=== PATIENT | female | born 1975 | race Caucasian/White ===

== ENCOUNTER 2017-06-21 11:36 | Emergency (ER) | payer OTHER ==
[2017-06-21 14:07] LABS: Potassium 4.4 mEq/L (3.6-5.0)
[2017-06-21] MEDS ORDERED: MORPHINE 4 MG/ML SYR ONE (14:07)
[2017-06-21] MEDS ORDERED: ONDANSETRON 4 MG/2 ML VIAL ONE (14:07)
[2017-06-21] MEDS ORDERED: NA CHLORIDE 0.9% 1,000 ML ONE (14:07)
[2017-06-21 14:10] LABS: Albumin 3.8 g/dL (3.2-5.5); Bilirubin Total 0.4 mg/dL (0.3-1.2); Protein, Total 7.3 g/dL (6.0-8.3)
[2017-06-21 14:15] LABS: Absolute Lymphocytes (CBC) 1.5 K/uL (0.7-4.9); Absolute Monocytes 0.3 K/uL (0.1-1.3); Absolute Neutrophil 5.2 K/uL (1.8-8.0); Basophils % 0.6 % (0-1.3); Eosinophils % 3.2 % (0-4.4); Hematocrit 35.4 % (36.0-45.0); Lymphocytes % 20.7 % (15.3-44.8); MCH 29.3 pg (27.0-35.0); MCV 89.4 fL (80-100); MPV 7.7 fL (7.6-11.3); Monocytes % 4.5 % (3.3-12.3); RBC Red Blood Cell Count 3.96 M/uL (3.86-4.86)
[2017-06-21] MEDS ORDERED: PROMETHAZINE 25 MG/ML VIAL ONE (15:02)
--- NOTE | 2017-06-21 17:49 | ER ---
Nurse's Notes [facility] Name: Annmarie Garcia Age: 42 yrs Sex: Female : 1975 Arrival Date: 06/21/2017 Time: 11:39 Bed 17 Private MD: Diagnosis: Nausea Presentation: 06/21 11:40 Presenting complaint: Patient states: i had surgery on my R foot last June in [facility], the pain is getting worse even with pain meds; sharp shooting pain and numbness; pain is 10/10; denies fever and chills; reports nausea;. Transition of care: patient was not received from another setting of care. Onset of symptoms was June 21, 2017. Care prior to arrival: None. 11:40 Method Of Arrival: Ambulatory 11:40 Acuity: SELVIN 4 Triage Assessment: 11:43 General: Appears in no apparent distress. uncomfortable, Behavior is cooperative, hj appropriate for age, anxious, crying. Pain: Complains of pain in right leg. GI: Reports nausea. 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 Historical: - Allergies: 11:43 OxyContin; - Home Meds: 11:43 Fioricet 50-300-40 mg Oral cap [Active]; Flexeril 10 mg Oral tab 1 tab 2 times per day hj [Active]; gabapentin 800 mg Oral tab 1 tab 3 times per day [Active]; hydrocodone-acetaminophen 5-325 mg Oral tab 1 tab [Active]; Keppra 500 mg Oral tab 1 tab daily [Active]; Tegretol 200 mg Oral tab 1 tab bedtime [Active]; - PMHx: 11:43 Anxiety; Asthma; decreased kidney fx; Hypertension; Hypothyroidism; Migraines; R arm hj compartment syndrome; R leg compartment syndrome; Seizures; suicidal ideation; - PSHx: 11:43 right lower extremity surgery; hj - Immunization history:: Adult Immunizations up to date. - Social history:: Smoking status: Patient/guardian denies using tobacco. Screenin:40 Abuse screen: Denies threats or abuse. Nutritional screening: No deficits noted. em Tuberculosis screening: No symptoms or risk factors identified. Fall Risk None identified. Assessment: 11:44 GI: Abdomen is non-distended. hj 12:40 General: Appears in no apparent distress. uncomfortable. Pain: Pain radiates to right em leg Pain currently is 10 out of 10 on a pain scale. Quality of pain is described as pressure. Neuro: Level of Consciousness is awake, alert, obeys commands, Oriented to person, place, time, situation, Speech is normal, Facial symmetry appears normal. Cardiovascular: Capillary refill < 3 seconds Patient's skin is warm and dry. Respiratory: Airway is patent Respiratory effort is even, unlabored, Respiratory pattern is regular, symmetrical, Breath sounds are clear bilaterally. GI: Abdomen is round non-distended. : No signs and/or symptoms were reported regarding the genitourinary system. EENT: No signs and/or symptoms were reported regarding the EENT system. Derm: Skin is intact, Skin is pink, warm \T\ dry. Musculoskeletal: Range of motion: intact in all extremities, splint noted to the right leg, reports she had surgery on June 10 for compartment syndrome. 12:45 General: The previous assessment is accurate, call light remains within reach.. ss 13:33 Reassessment: Patient appears in no apparent distress at this time. Patient and/or em family updated on plan of care and expected duration. Pain level reassessed. Patient is alert, oriented x 3, equal unlabored respirations, skin warm/dry/pink. 14:35 Reassessment: Patient appears in no apparent distress at this time. Patient and/or em family updated on plan of care and expected duration. Pain level reassessed. Patient is alert, oriented x 3, equal unlabored respirations, skin warm/dry/pink. c/o pain and nausea, ERP notified, new orders received. 15:30 Reassessment: Patient appears in no apparent distress at this time. Patient and/or em family updated on plan of care and expected duration. Pain level reassessed. Patient is alert, oriented x 3, equal unlabored respirations, skin warm/dry/pink. 16:45 Reassessment: Patient appears in no apparent distress at this time. Patient and/or em family updated on plan of care and expected duration. Pain level reassessed. Patient is alert, oriented x 3, equal unlabored respirations, skin warm/dry/pink. 17:48 Reassessment: Patient appears in no apparent distress at this time. Patient and/or em family updated on plan of care and expected duration. Pain level reassessed. Patient is alert, oriented x 3, equal unlabored respirations, skin warm/dry/pink. Vital Signs: 11:44 BP 124 / 82; Pulse 115; Resp 18; Temp 99.3(TE); Pulse Ox 99% on R/A; Weight 72.57 kg; hj Height 5 ft. 4 in. (162.56 cm); Pain 10/10; 12:40 BP 111 / 83; Pulse 109; Resp 20; Pulse Ox 99% on R/A; em 13:55 BP 109 / 69; Pulse 103; Resp 16; Pulse Ox 98% on R/A; Pain 10/10; em 16:58 BP 116 / 81; Pulse 86; Resp 18; Pulse Ox 99% on R/A; Pain 9/10; em 18:20 BP 115 / 59; Pulse 93; Resp 14; Temp 98.4(O); Pulse Ox 98% on R/A; Pain 7/10; em 11:44 Body Mass Index 27.46 (72.57 kg, 162.56 cm) hj ED Course: 11:39 Patient arrived in ED. rg4 11:42 Triage completed. hj 11:44 Arm band placed on right wrist. hj 12:14 Javed Perea LVN is Primary Nurse. em 12:27 Abby Simmons MD is Attending Physician. ma2 12:40 Patient has correct armband on for positive identification. Bed in low position. Call em light in reach. Side rails up X2. Adult w/ patient. 13:45 No provider procedures requiring assistance completed. Initial lab(s) drawn, by me, em sent to lab. Inserted saline lock: 24 gauge in right hand, using aseptic technique. Blood collected. 18:45 IV discontinued, intact, bleeding controlled, No redness/swelling at site. Pressure em dressing applied. Administered Medications: 13:55 Drug: Zofran 4 mg Route: IVP; Site: right hand; ss 14:32 Follow up: Response: No adverse reaction; Nausea unchanged em 13:58 Drug: NS 0.9% 1000 ml Route: IV; Rate: 1 bolus; Site: right hand; em 18:05 Follow up: IV Status: Completed infusion; IV Intake: 1000ml em 14:00 Drug: morphine 2 mg Route: IVP; Site: right hand; ss 14:32 Follow up: Response: No adverse reaction; Pain is unchanged, physician notified em 14:50 Drug: Phenergan 25 mg Route: IVP; Site: right hand; jl7 18:09 Follow up: Response: No adverse reaction em 18:05 Drug: morphine 2 mg Route: IVP; Site: right hand; em 18:09 Follow up: Response: No adverse reaction em Intake: 18:05 IV: 1000ml; Total: 1000ml. em Outcome: 17:49 Discharge ordered by MD. fuentes 18:45 Discharged to home ambulatory. em 18:45 Condition: good 18:45 Discharge instructions given to patient, family, Instructed on discharge instructions, follow up and referral plans. Demonstrated understanding of instructions, follow-up care, Prescriptions given X 1. 18:45 Patient left the ED. em Signatures: Javed Perea, PHLEBOTOMY LAB ASSISTANT PHLEBOTOMY LAB ASSISTANT em Swetha Rodriguez, RN RN Zeke Whitlock RN RN Marlen Napoles rg4 Charu Eller RN RN jl7 Abby Simmons MD MD ma2 Corrections: (The following items were deleted from the chart) 11:46 11:44 Pulse 115bpm; Resp 18bpm; Pulse Ox 99% RA; Temp 99.3F Temporal; 72.57 kg; Height hj 5 ft. 4 in.; BMI: 27.4; Pain 10/10; hj 14:00 13:59 Zofran 4 mg IVP in left hand ss 18:06 15:35 Response: No adverse reaction em em 18:07 18:06 Response: No adverse reaction em em 18:09 17:10 Response: No adverse reaction em em
--- NOTE | 2017-06-21 17:50 | EDPHYS ---
Physician Documentation [facility] Name: Annmarie Garcia Age: 42 yrs Sex: Female : 1975 Arrival Date: 06/21/2017 Time: 11:39 Bed 17 Private MD: ED Physician Abby Simmons HPI: 06/21 17:46 This 42 yrs old Female presents to ER via Ambulatory with complaints of ma2 Nausea, Foot Pain. 17:46 The patient presents to the emergency department with nausea, vomiting. Onset: The ma2 symptoms/episode began/occurred gradually, 2 week(s) ago. Possible causes: pain in right foot. Associated signs and symptoms: Pertinent negatives: abdominal pain, belching, diarrhea, fever, flatulence, nausea, vaginal discharge. The patient has experienced similar episodes in the past. had right ankle surgery 2 weeks ago, has pain on off since then here with nausea and headache, she has migraine, on Phenergan for nausea that is not helping . 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 Historical: - Allergies: 11:43 OxyContin; hj - Home Meds: 11:43 Fioricet 50-300-40 mg Oral cap [Active]; Flexeril 10 mg Oral tab 1 tab 2 times per day hj [Active]; gabapentin 800 mg Oral tab 1 tab 3 times per day [Active]; hydrocodone-acetaminophen 5-325 mg Oral tab 1 tab [Active]; Keppra 500 mg Oral tab 1 tab daily [Active]; Tegretol 200 mg Oral tab 1 tab bedtime [Active]; - PMHx: 11:43 Anxiety; Asthma; decreased kidney fx; Hypertension; Hypothyroidism; Migraines; R arm hj compartment syndrome; R leg compartment syndrome; Seizures; suicidal ideation; - PSHx: 11:43 right lower extremity surgery; hj - Immunization history:: Adult Immunizations up to date. - Social history:: Smoking status: Patient/guardian denies using tobacco. ROS: 17:46 Constitutional: Negative for fever, chills, and weight loss, Eyes: Negative for injury, ma2 pain, redness, and discharge, ENT: Negative for injury, pain, and discharge, Neck: Negative for injury, pain, and swelling, Cardiovascular: Negative for chest pain, palpitations, and edema, Respiratory: Negative for shortness of breath, cough, wheezing, and pleuritic chest pain, Back: Negative for injury and pain, : Negative for injury, bleeding, discharge, and swelling, Skin: Negative for injury, rash, and discoloration, Neuro: Negative for headache, weakness, numbness, tingling, and seizure, Psych: Negative for depression, anxiety, suicide ideation, homicidal ideation, and hallucinations, Allergy/Immunology: Negative for hives, rash, and allergies, Hematologic/Lymphatic: Negative for swollen nodes, abnormal bleeding, and unusual bruising. Exam: 17:46 Constitutional: This is a well developed, well nourished patient who is awake, alert, ma2 and in no acute distress. Head/Face: Normocephalic, atraumatic. Eyes: Pupils equal round and reactive to light, extra-ocular motions intact. Lids and lashes normal. Conjunctiva and sclera are non-icteric and not injected. Cornea within normal limits. Periorbital areas with no swelling, redness, or edema. ENT: Nares patent. No nasal discharge, no septal abnormalities noted. Tympanic membranes are normal and external auditory canals are clear. Oropharynx with no redness, swelling, or masses, exudates, or evidence of obstruction, uvula midline. Mucous membranes moist. Neck: Trachea midline, no thyromegaly or masses palpated, and no cervical lymphadenopathy. Supple, full range of motion without nuchal rigidity, or vertebral point tenderness. No Meningismus. Chest/axilla: Normal chest wall appearance and motion. Nontender with no deformity. No lesions are appreciated. Cardiovascular: Regular rate and rhythm with a normal S1 and S2. No gallops, murmurs, or rubs. Normal PMI, no JVD. No pulse deficits. Respiratory: Lungs have equal breath sounds bilaterally, clear to auscultation and percussion. No rales, rhonchi or wheezes noted. No increased work of breathing, no retractions or nasal flaring. Abdomen/GI: Soft, non-tender, with normal bowel sounds. No distension or tympany. No guarding or rebound. No evidence of tenderness throughout. 18:25 Musculoskeletal/extremity: right leg, ankle and foot with no acute changes, no erythema ma2 swelling or tenderness, all surgical scars are almost healed and dry with no induration, cap refill < 2 sec, pulses palpable at right pt dp and sensation intact . Vital Signs: 11:44 BP 124 / 82; Pulse 115; Resp 18; Temp 99.3(TE); Pulse Ox 99% on R/A; Weight 72.57 kg; hj Height 5 ft. 4 in. (162.56 cm); Pain 10/10; 12:40 BP 111 / 83; Pulse 109; Resp 20; Pulse Ox 99% on R/A; em 13:55 BP 109 / 69; Pulse 103; Resp 16; Pulse Ox 98% on R/A; Pain 10/10; em 16:58 BP 116 / 81; Pulse 86; Resp 18; Pulse Ox 99% on R/A; Pain 9/10; em 18:20 BP 115 / 59; Pulse 93; Resp 14; Temp 98.4(O); Pulse Ox 98% on R/A; Pain 7/10; em 11:44 Body Mass Index 27.46 (72.57 kg, 162.56 cm) hj MDM: 12:27 Patient medically screened. ma2 17:46 Differential diagnosis: Nonspecific abd pain, viral gastroenteritis, gastroenteritis, ma2 migraine headache, unlikely right foot condition as pain is not changed from baseline. Data reviewed: vital signs, nurses notes, EMS record. 17:50 Medication response: Response to treatment: the patient's symptoms have resolved after ma2 treatment, patient is well hydrated. tolerate po . 06/21 12:58 Order name: CBC with Diff ma2 06/21 12:58 Order name: CMP ma2 06/21 14:07 Order name: Comprehensive Metabolic Panel; Complete Time: 16:41 EDMS 06/21 14:37 Order name: CBC with Automated Diff; Complete Time: 16:41 EDMS Administered Medications: 13:55 Drug: Zofran 4 mg Route: IVP; Site: right hand; ss 14:32 Follow up: Response: No adverse reaction; Nausea unchanged em 13:58 Drug: NS 0.9% 1000 ml Route: IV; Rate: 1 bolus; Site: right hand; em 18:05 Follow up: IV Status: Completed infusion; IV Intake: 1000ml em 14:00 Drug: morphine 2 mg Route: IVP; Site: right hand; ss 14:32 Follow up: Response: No adverse reaction; Pain is unchanged, physician notified em 14:50 Drug: Phenergan 25 mg Route: IVP; Site: right hand; jl7 18:09 Follow up: Response: No adverse reaction em 18:05 Drug: morphine 2 mg Route: IVP; Site: right hand; em 18:09 Follow up: Response: No adverse reaction em Disposition: 06/21/17 17:49 Discharged to Home. Impression: Nausea. - Condition is Stable. - Discharge Instructions: Nausea and Vomiting. - Prescriptions for Zofran 4 mg Oral Tablet - take 1 tablet by ORAL route every 12 hours As needed; 20 tablet. - Medication Reconciliation Form, Thank You Letter, Antibiotic Education, Prescription Opioid Use form. - Follow up: Private Physician; When: Tomorrow; Reason: Continuance of care. - Problem is new. - Symptoms are unchanged. Signatures: Dispatcher [employer] Javed Martin, ASPHALT DAUBER ASPHALT DAUBER Swetha Walters, RN RN Zeke Whitlock RN RN hj Leal, Jahala, RN RN jl7 Abby Simmons MD MD ma2
[2017-06-21 18:55] VITALS: BP 115/59; TEMP 98.4; O2SAT 98
== END 2017-06-21 18:45 | disposition home or self-care (01) ==
LOC: ER 11:36
DX: R11.0 Nausea (principal); M79.671 Pain in right foot; I10 Essential (primary) hypertension; E03.9 Hypothyroidism, unspecified; F41.9 Anxiety disorder, unspecified; G40.909 Epilepsy, unspecified, not intractable, without status epilepticus; Z88.5 Allergy status to narcotic agent
CPT/HCPCS: 36415; 80053; 85025; 96361; 96374; 96375; 99284; J2405; J2550; J7030

== ENCOUNTER 2017-06-24 14:09 | Emergency (ER) | payer OTHER ==
--- NOTE | 2017-06-24 15:11 | RAD REPORT ---
EXAM DESCRIPTION: Deedee Escobedo (2 Views)06/24/2017 2:58 pm CLINICAL HISTORY: Chest pain COMPARISON: December 2016 FINDINGS: The lungs appear clear of acute infiltrate. The heart is normal size IMPRESSION: No acute abnormalities displayed
[2017-06-24] MEDS ORDERED: NA CHLORIDE 0.9% 0 ML ONE (15:29)
[2017-06-24] MEDS ORDERED: LEVALBUTEROL 1.25 MG/3 ML NEB ONE (15:29)
--- NOTE | 2017-06-24 17:51 | EDPHYS ---
Physician Documentation [facility] Name: Annmarie Garcia Age: 42 yrs Sex: Female : 1975 Arrival Date: 06/24/2017 Time: 14:12 Bed 5 Private MD: Yamileth Roth ED Physician Kaushik Crain HPI: 06/24 16:39 This 42 yrs old Female presents to ER via Ambulatory with complaints of Foot rn Pain, chest pain, Breathing Difficulty. 16:40 The patient or guardian reports chest pain that is located primarily in the epigastric rn area. Onset: at an unknown time. The pain. The chest pain is described as burning. Modifying factors: The symptoms are alleviated by nothing. the symptoms are aggravated by nothing. Severity of pain: At its worst the pain was mild in the emergency department the pain is unchanged. It is unknown whether or not the patient has had similar symptoms in the past. Reports unknown onset exactly, but sometime today began with burning in her stomach that radiates up through chest and into throat, no vomiting/diaphoresis. Also here for foot pain, reports surgery a couple of weeks ago at [facility], has been having pain in foot since surgery, no leg swelling, no change in skin, states took off her splint because rubbing too much.. 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 hb Historical: - Allergies: 14:19 OxyContin; hb - Home Meds: 14:19 Flexeril 10 mg Oral tab 1 tab 2 times per day [Active]; gabapentin 800 mg Oral tab 1 hb tab 3 times per day [Active]; hydrocodone-acetaminophen 5-325 mg Oral tab 1 tab [Active]; Keppra 500 mg Oral tab 1 tab daily [Active]; Tegretol 200 mg Oral tab 1 tab bedtime [Active]; Fioricet 50-300-40 mg Oral cap [Active]; - PMHx: 14:19 Anxiety; Asthma; decreased kidney fx; Hypertension; Hypothyroidism; Migraines; R arm hb compartment syndrome; R leg compartment syndrome; Seizures; suicidal ideation; - PSHx: 14:19 right lower extremity surgery; hb - Immunization history:: Adult Immunizations up to date. - Social history:: Smoking status: Patient/guardian denies using tobacco. - Family history:: not pertinent. - Hospitalizations: : No recent hospitalization is reported. ROS: 16:40 Constitutional: Negative for fever, chills, and weight loss, Eyes: Negative for injury, rn pain, redness, and discharge, Cardiovascular: Negative for palpitations, and edema, Respiratory: Negative for cough, wheezing Abdomen/GI: Negative for nausea, vomiting, diarrhea, and constipation, Back: Negative for injury and pain, MS/Extremity: Negative for injury and deformity, Skin: Negative for injury, rash, and discoloration, Neuro: Negative for headache, weakness, numbness, tingling, and seizure. Exam: 16:40 Constitutional: This is a well developed, well nourished patient who is awake, alert, rn and in no acute distress. Head/Face: Normocephalic, atraumatic. Eyes: Pupils equal round and reactive to light, extra-ocular motions intact. Lids and lashes normal. Conjunctiva and sclera are non-icteric and not injected. Cornea within normal limits. Periorbital areas with no swelling, redness, or edema. Neck: Trachea midline, no thyromegaly or masses palpated, and no cervical lymphadenopathy. Supple, full range of motion without nuchal rigidity, or vertebral point tenderness. No Meningismus. Cardiovascular: Regular rate and rhythm with a normal S1 and S2. No gallops, murmurs, or rubs. Normal PMI, no JVD. No pulse deficits. Respiratory: Lungs have equal breath sounds bilaterally, clear to auscultation and percussion. No rales, rhonchi or wheezes noted. No increased work of breathing, no retractions or nasal flaring. Abdomen/GI: Soft, non-tender, with normal bowel sounds. No distension or tympany. No guarding or rebound. No evidence of tenderness throughout. MS/ Extremity: Pulses equal, no cyanosis. Neurovascular intact. Equal circumference. Neuro: Awake and alert, GCS 15, oriented to person, place, time, and situation. Cranial nerves II-XII grossly intact. Motor strength 5/5 in all extremities. Sensory grossly intact. Vital Signs: 14:17 BP 131 / 79; Pulse 125; Resp 20; Temp 98; Pulse Ox 96% ; Pain 8/10; hb 17:17 BP 119 / 73; Pulse 91; Resp 18; Pulse Ox 99% ; jl7 18:02 BP 108 / 75; Pulse 97; Pulse Ox 100% on R/A; ap3 MDM: 14:22 Patient medically screened. rn 17:46 Differential diagnosis: acute pericarditis, anxiety, chest wall pain, esophagitis, rn gastritis, gastroesophageal reflux disease (GERD), pleurisy, pneumonia, pneumothorax. Data reviewed: vital signs, nurses notes, lab test result(s), EKG, radiologic studies, plain films, and as a result, I will discharge patient. Counseling: I had a detailed discussion with the patient and/or guardian regarding: the historical points, exam findings, and any diagnostic results supporting the discharge/admit diagnosis, lab results, radiology results, the need for outpatient follow up, to return to the emergency department if symptoms worsen or persist or if there are any questions or concerns that arise at home. Special discussion: Based on the patient's history, exam, and Dx evaluation, there is no indication for emergent intervention or inpatient Tx. It is understood by the patient/guardian that if the Sx's persist or worsen they need to return immediately for re-evaluation. I discussed with the patient/guardian in detail that at this point there is no indication for admission to the hospital. It is understood, however, that if the symptoms persist or worsen the patient needs to return immediately for re-evaluation. ED course: Meets PERC criteria, normal troponin, chronic foot pain, will dc home with ortho f/u as planned. . 06/24 14:32 Order name: BMP rn 06/24 14:32 Order name: Troponin (emerg Dept Use Only) rn 06/24 14:32 Order name: XRAY Chest Pa And Lat (2 Views) rn 06/24 15:11 Order name: RAD; Complete Time: 15:21 EDNH 06/24 17:09 Order name: Troponin (Emerg Dept Use Only); Complete Time: 17:12 EDNH 06/24 14:32 Order name: EKG; Complete Time: 14:33 rn 06/24 14:32 Order name: EKG - Nurse/Tech; Complete Time: 15:44 rn Administered Medications: 15:43 Drug: Xopenex 1.25 mg Route: Inhalation; ae1 16:07 Not Given (Physician Discretion): NS 0.9% 1000 ml IV at 1000 ml once ae1 Disposition: 06/24/17 17:50 Discharged to Home. Impression: Chest pain, unspecified, Other chronic pain, Gastro-esophageal reflux disease. - Condition is Stable. - Discharge Instructions: Nonspecific Chest Pain, Chronic Pain, Gastroesophageal Reflux Disease, Adult. - Medication Reconciliation Form, Thank You Letter, Antibiotic Education, Prescription Opioid Use form. - Follow up: Yamileth Roth MD; When: As needed; Reason: Recheck today's complaints, Re-evaluation by your physician. - Problem is an ongoing problem. - Symptoms have improved. Signatures: Dispatcher [employer] EDNH Kaushik Crain MD MD rn Baxter, Heather RN RN Abdiel Shelby RN RN ae1
--- NOTE | 2017-06-24 17:51 | ER ---
Nurse's Notes [facility] Name: Annmarie Garcia Age: 42 yrs Sex: Female : 1975 Arrival Date: 06/24/2017 Time: 14:12 Bed 5 Private MD: Yamileth Roth Diagnosis: Chest pain, unspecified;Other chronic pain;Gastro-esophageal reflux disease Presentation: 06/24 14:14 Presenting complaint: Patient states: Epigastric pain and SOB x 1 hr. Also c/o right hb foot pain, recent foot sx 3/6. Transition of care: patient was not received from another setting of care. Onset of symptoms is unknown. Care prior to arrival: Medication(s) given: [place] at 1000. 14:14 Method Of Arrival: Ambulatory hb 14:14 Acuity: SELVIN 3 hb Triage Assessment: 18:18 Respiratory: Onset: The symptoms/episode began/occurred surgery date was 06/08/2017. ap3 18:18 Respiratory: Reports shortness of breath on exertion the patient has mild shortness of ap3 breath. 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 Historical: - Allergies: 14:19 OxyContin; hb - Home Meds: 14:19 Flexeril 10 mg Oral tab 1 tab 2 times per day [Active]; gabapentin 800 mg Oral tab 1 hb tab 3 times per day [Active]; hydrocodone-acetaminophen 5-325 mg Oral tab 1 tab [Active]; Keppra 500 mg Oral tab 1 tab daily [Active]; Tegretol 200 mg Oral tab 1 tab bedtime [Active]; Fioricet 50-300-40 mg Oral cap [Active]; - PMHx: 14:19 Anxiety; Asthma; decreased kidney fx; Hypertension; Hypothyroidism; Migraines; R arm hb compartment syndrome; R leg compartment syndrome; Seizures; suicidal ideation; - PSHx: 14:19 right lower extremity surgery; hb - Immunization history:: Adult Immunizations up to date. - Social history:: Smoking status: Patient/guardian denies using tobacco. - Family history:: not pertinent. - Hospitalizations: : No recent hospitalization is reported. Screenin:03 Abuse screen: Denies threats or abuse. Nutritional screening: No deficits noted. ap3 Tuberculosis screening: No symptoms or risk factors identified. Fall Risk Fall in past 12 months (25 points). No IV (0 pts). Ambulatory Aid- Crutches/Cane/Walker (15 pts). Gait- Impaired (20 pts.). Mental Status- Oriented to own ability (0 pts). Assessment: 16:45 Pain: Complains of pain in medial aspect of right foot Pain does not radiate. Pain ap3 currently is 8 out of 10 on a pain scale. Quality of pain is described as aching, Alleviated by relaxation, Aggravated by increased activity, Current management is with Hydrocodone 5mg. Neuro: Level of Consciousness is awake, alert, obeys commands, Oriented to person, place, time, situation. Cardiovascular: Heart tones S1 S2 present Rhythm is regular. Respiratory: Airway is patent Breath sounds are clear bilaterally. Respiratory: Respiratory effort is even, unlabored. GI: No signs and/or symptoms were reported involving the gastrointestinal system. : No signs and/or symptoms were reported regarding the genitourinary system. EENT: No signs and/or symptoms were reported regarding the EENT system. Derm: Skin is pink, warm \T\ dry. Derm: Wound noted medial aspect of right foot-surgical wound with stiches present. scars noted on the right medial leg, and right medial forearm from previous surgeries. Musculoskeletal: scars from previous surgery noted on the right medial leg, and right medial forearm. Injury Description: surgical. 18:03 General: Appears uncomfortable, Behavior is cooperative, anxious. Respiratory: Airway ap3 is patent. Vital Signs: 14:17 BP 131 / 79; Pulse 125; Resp 20; Temp 98; Pulse Ox 96% ; Pain 8/10; hb 17:17 BP 119 / 73; Pulse 91; Resp 18; Pulse Ox 99% ; jl7 18:02 BP 108 / 75; Pulse 97; Pulse Ox 100% on R/A; ap3 ED Course: 14:12 Patient arrived in ED. mr 14:12 Yamileth Roth MD is Private Physician. mr 14:17 Triage completed. hb 14:18 Arm band placed on left wrist. hb 14:22 Kaushik Crain MD is Attending Physician. rn 14:49 EKG done, by in shop service technician. reviewed by Kaushik Crain MD. rg3 15:08 Abdiel Shelby, RN is Primary Nurse. ae1 17:50 Yamlieth Roth MD is Referral Physician. rn 18:10 No provider procedures requiring assistance completed. ap3 18:11 Patient has correct armband on for positive identification. Bed in low position. Call ap3 light in reach. Side rails up X 1. Pulse ox on. NIBP on. 18:13 Missed attempt(s): 22 gauge in left antecubital area. Missed attempt(s): 22 gauge in bm6 left antecubital area. 2 missed attempts in left AC. 18:15 Missed attempt(s): 22 gauge in right antecubital area. bm6 18:17 Patient did not have IV access during this emergency room visit. ap3 Administered Medications: 15:43 Drug: Xopenex 1.25 mg Route: Inhalation; ae1 16:07 Not Given (Physician Discretion): NS 0.9% 1000 ml IV at 1000 ml once ae1 Outcome: 17:50 Discharge ordered by . rn 18:17 Discharged to home ambulatory, with crutches, with family. ap3 18:17 Condition: stable 18:17 Discharge instructions given to patient, Instructed on discharge instructions, follow up and referral plans. Demonstrated understanding of instructions. 18:25 Attestation : I agree with the charting done by Peggy Koch, acute care nursing assistant. . ae1 18:27 Patient left the ED. ae1 Signatures: Areli Griffiths mr Kaushik Crain MD MD rn Garza, Rose rg3 Yeimi Dumont RN RN hb Abdiel Shelby RN RN ae1 Davie Hagen bm6 Charu Eller RN RN jl7 Peggy Koch ap3 Corrections: (The following items were deleted from the chart) 14:19 14:14 Care prior to arrival: None. hb hb
[2017-06-24 18:32] VITALS: TEMP 98
[2017-06-24 18:34] VITALS: BP 108/75; O2SAT 100
--- NOTE | 2017-06-25 05:57 | EKG ---
Test Date: 2017-06-24 Test Time: 14:40:37 Transit Planner: JONY MEASUREMENT RESULTS: Intervals: Rate: 100 WI: 172 QRSD: 82 QT: 350 QTc: 451 [place]: P: 48 WI: 172 QRS: 55 T: 64 INTERPRETIVE STATEMENTS: Normal sinus rhythm Possible Left atrial enlargement Borderline ECG Compared to ECG 03/27/2017 22:46:40 Sinus tachycardia no longer present Electronically Signed On 06-25-17 05:57:02 CDT by Anibal Miller
== END 2017-06-24 18:27 | disposition home or self-care (01) ==
LOC: ER 14:09
DX: K21.9 Gastro-esophageal reflux disease without esophagitis (principal); G89.29 Other chronic pain; F41.9 Anxiety disorder, unspecified; I10 Essential (primary) hypertension; E03.9 Hypothyroidism, unspecified; G40.909 Epilepsy, unspecified, not intractable, without status epilepticus; Z88.5 Allergy status to narcotic agent
CPT/HCPCS: 36415; 71046; 84484; 93005; 99284; J7030

== ENCOUNTER 2017-07-20 10:17 | Emergency (ER) | payer OTHER ==
[2017-07-20] MEDS ORDERED: DEXAMETHASONE 10 MG/ML VIAL ONE (11:57)
[2017-07-20] MEDS ORDERED: METOCLOPRAMIDE 10 MG/2mL INJ ONE (11:57)
[2017-07-20] MEDS ORDERED: ONDANSETRON 4 MG/2 ML VIAL ONE ×2 (11:57→15:58)
[2017-07-20] MEDS ORDERED: DIPHENHYDRAMINE 50 MG/ML VIAL ONE (11:57)
[2017-07-20] MEDS ORDERED: NA CHLORIDE 0.9% 1,000 ML ONE (11:58)
[2017-07-20] MEDS ORDERED: FAMOTIDINE 20 MG/2 ML VIAL IV ONE (11:58)
[2017-07-20 13:34] LABS: Urine Blood NEGATIVE (NEG); Urine Glucose NEGATIVE (NEG); Urine Protein NEGATIVE (NEG); Urine Specific Gravity <1.005 (1.005-1.030)
[2017-07-20 14:21] LABS: Urine Bacteria <20 /HPF (<20); Urine Culture Reflex Order NOT NEEDED; Urine RBC <5 /HPF (NONE SEEN)
[2017-07-20 14:29] LABS: Absolute Lymphocytes (CBC) 1.6 K/uL (0.7-4.9); Absolute Monocytes 0.4 K/uL (0.1-1.3); Absolute Neutrophil 13.8 K/uL (1.8-8.0); Basophils % 0.7 % (0-1.3); Hematocrit 40.2 % (36.0-45.0); Lymphocytes % 9.8 % (15.3-44.8); MCH 29.8 pg (27.0-35.0); MCV 88.9 fL (80-100); MPV 8.9 fL (7.6-11.3); Monocytes % 2.6 % (3.3-12.3); RBC Red Blood Cell Count 4.52 M/uL (3.86-4.86)
[2017-07-20 14:52] LABS: Potassium 4.5 mEq/L (3.6-5.0)
[2017-07-20 14:55] LABS: Blood Morphology Comment NOT SEEN (NOT SEEN); Platelet Estimate ADEQ; Urine White Blood Cell Casts OK
[2017-07-20 14:58] LABS: Albumin 4.6 g/dL (3.2-5.5); Bilirubin Direct 0.1 mg/dL (0-0.2); Bilirubin Total 0.5 mg/dL (0.3-1.2); Protein, Total 8.5 g/dL (6.0-8.3)
[2017-07-20] MEDS ORDERED: MORPHINE 10 MG/ML VIAL ONE (15:58)
--- NOTE | 2017-07-20 16:08 | RAD REPORT ---
EXAM DESCRIPTION: CT - Abdomen Pelvis Wo Contrast - 07/20/2017 3:55 pm CLINICAL HISTORY: Abdominal pain COMPARISON: November 2013 TECHNIQUE: Axial [address] imaging of the abdomen and pelvis was performed without IV contrast. No IV contrast was given because of allergy, abnormal renal function, patient refusal or physician re quest. Oral contrast was given. All CT scans are performed using dose optimization technique as appropriate and may include automated exposure control or mA/KV adjustment according to patient size. FINDINGS: No suspicious findings in the lung bases. The liver, spleen and pancreas show no suspicious findings on non-contrast imaging. Gallbladder and b iliary tree are also without suspicious finding. No hydronephrosis or suspicious renal mass. No significant adrenal finding. Isodense renal masses an d pyelonephritis cannot be excluded in the absence of IV contrast. The urinary bladder is without sig nificant finding. Uterus and ovaries show no suspicious findings. No gastric dilatation or gastric wall thickening. Small bowel loops are not dilated. Distal small bow el loops are fluid filled. There is a large amount of liquid stool filling and distending the colon f rom cecum through mid descending colon. Colon is as large as 6.6 cm in diameter. In the distal descen ding colon there is some questionable circumferential wall thickening. No stranding or edema in the a djacent fat. Distal to this point there is normal formed stool. No wall thickening or mass in the dis mj colon. No adjacent inflammatory stranding. No free air, free fluid or pneumatosis. No hernia, mass or bulky lymphadenopathy. No suspicious bony findings. IMPRESSION: Distended colon to 6.6 cm filled with liquid stool from the cecum to the mid descending colon. In the distal descending colon there is questionable circumferential wall thickening. No adjacent yu ma or inflammatory stranding. Focal inflammatory change or small mass in the descending colon cannot be excluded. No free air, abscess or surgically emergent finding. Full assessment is limited is the absence of IV contrast.
[2017-07-20] MEDS ORDERED: metroNIDAZOLE 500 MG TABLET ONE (16:30)
[2017-07-20] MEDS ORDERED: CIPROFLOXACIN HCL 500 MG TAB ONE (16:30)
--- NOTE | 2017-07-20 16:49 | ER ---
Nurse's Notes [facility] Name: Annmarie Garcia Age: 42 yrs Sex: Female : 1975 Arrival Date: 07/20/2017 Time: 10:19 Bed 17 Private MD: Diagnosis: Nausea and vomiting;Headache;Diarrhea, unspecified Presentation: 07/20 10:20 Presenting complaint: Patient states: i had a terrible migraine headache that started hj yesterday; today, my stomach started hurting and had a diarrhea x 4 times, reports nausea and vomiting; denies fever and chills;. Transition of care: patient was not received from another setting of care. Onset of symptoms was July 20, 2017. Care prior to arrival: None. 10:20 Method Of Arrival: Ambulatory hj 10:20 Acuity: SELVIN 3 hj Triage Assessment: 10:23 Headache History: The patient has had previous headaches. General: Appears in no hj apparent distress. uncomfortable, Behavior is calm, cooperative, appropriate for age. Pain: Complains of pain in head, abdomen Pain currently is 10 out of 10 on a pain scale. Pain began 1 day ago. Is Also complains of nausea. 10:25 Neuro: Level of Consciousness is awake, alert, obeys commands, Oriented to person, hj place, time, situation, Appropriate for age. 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 - Social history:: Smoking status: Patient/guardian denies using tobacco. Screenin:33 Abuse screen: Denies threats or abuse. Nutritional screening: No deficits noted. em Tuberculosis screening: No symptoms or risk factors identified. Fall Risk None identified. Assessment: 12:33 General: Appears in no apparent distress. uncomfortable, Behavior is calm, cooperative. em Pain: Complains of pain in forehead Pain does not radiate. Pain currently is 10 out of 10 on a pain scale. Neuro: Level of Consciousness is awake, alert, obeys commands, Oriented to person, place, time, situation, Moves all extremities. Speech is normal, Pupils are PERRLA, Intact. Cardiovascular: Capillary refill < 3 seconds Patient's skin is warm and dry. Respiratory: Airway is patent Respiratory effort is even, unlabored, Respiratory pattern is regular, symmetrical. GI: Abdomen is flat. : No signs and/or symptoms were reported regarding the genitourinary system. EENT: No signs and/or symptoms were reported regarding the EENT system. Derm: Skin is intact, Skin is pink, warm \T\ dry. Musculoskeletal: Range of motion: intact in all extremities, cast noted to the right foot. 12:40 General: The previous assessment is accurate, call light remains within reach. . ss 13:00 Reassessment: unable to obtain IV access, RADHA Akhtar notified. em 14:00 Reassessment: Patient appears in no apparent distress at this time. Patient and/or em family updated on plan of care and expected duration. Pain level reassessed. Patient is alert, oriented x 3, equal unlabored respirations, skin warm/dry/pink. 14:58 Reassessment: Patient appears in no apparent distress at this time. Patient and/or em family updated on plan of care and expected duration. Pain level reassessed. Patient is alert, oriented x 3, equal unlabored respirations, skin warm/dry/pink. Patient states feeling better. 16:13 Reassessment: Patient appears in no apparent distress at this time. Patient and/or em family updated on plan of care and expected duration. Pain level reassessed. Patient is alert, oriented x 3, equal unlabored respirations, skin warm/dry/pink. c/o headache and abd pain, states hadn't had a BM in one week, RADHA Rashid notified. 17:10 Reassessment: Patient appears in no apparent distress at this time. Patient and/or em family updated on plan of care and expected duration. Pain level reassessed. Patient is alert, oriented x 3, equal unlabored respirations, skin warm/dry/pink. Vital Signs: 10:23 BP 115 / 78; Pulse 121; Resp 18; Temp 97.5(TE); Pulse Ox 99% on R/A; Weight 65.77 kg; hj Height 5 ft. 0 in. (152.40 cm); Pain 10/10; 12:33 BP 114 / 76; Pulse 98; Resp 19; Pulse Ox 99% on R/A; em 13:00 BP 120 / 92; Pulse 96; Resp 18; Pulse Ox 99% on R/A; em 14:57 BP 120 / 77; Pulse 96; Resp 18; Pulse Ox 98% on R/A; Pain 7/10; em 16:00 BP 114 / 78; Pulse 111; Resp 18; Pulse Ox 98% on R/A; em 17:10 BP 124 / 91; Pulse 107; Resp 17; Pulse Ox 100% on R/A; Pain 6/10; em 10:23 Body Mass Index 28.32 (65.77 kg, 152.40 cm) ED Course: 10:19 Patient arrived in ED. tw3 10:22 Triage completed. hj 10:23 Arm band placed on right wrist. hj 11:30 Hermilo Cochran PA is PHCP. cp 11:30 Rick Riley MD is Attending Physician. cp 11:54 Javed Perea LVN is Primary Nurse. em 12:33 Patient has correct armband on for positive identification. Bed in low position. Side em rails up X2. 13:10 Missed attempt(s): 24 gauge in left antecubital area. Bleeding controlled, band aid ss applied, catheter tip intact. 13:15 Missed attempt(s): 24 gauge in right antecubital area. Bleeding controlled, band aid ss applied, catheter tip intact. 14:53 No provider procedures requiring assistance completed. em 15:55 CT Abd/Pelvis - Without Cont In Process Unspecified. EDMS 17:28 IV discontinued, intact, bleeding controlled, No redness/swelling at site. Pressure em dressing applied. Administered Medications: 11:39 CANCELLED (Physician Discretion): Dexamethasone 10 mg IVP once; (not to exceed 40 mg) cp 12:12 Drug: Pepcid 20 mg Route: IVP; Site: right hand; ss 15:09 Follow up: Response: No adverse reaction em 14:10 Drug: NS 0.9% 1000 ml Route: IV; Rate: 1 bolus; Site: right hand; ss 17:00 Follow up: IV Status: Completed infusion; IV Intake: 1000ml em 14:10 Drug: Zofran 4 mg Route: IVP; Site: right hand; ss 15:09 Follow up: Response: No adverse reaction em 14:14 Drug: Benadryl 25 mg Route: IVP; Site: right hand; ss 15:10 Follow up: Response: No adverse reaction em 14:16 Drug: Reglan 10 mg Route: IVP; Site: right hand; ss 15:10 Follow up: Response: No adverse reaction em 14:30 Drug: Decadron - Dexamethasone 10 mg Route: IVP; Site: right hand; ss 15:28 Follow up: Response: No adverse reaction em 16:11 Drug: morphine 4 mg Route: IVP; Site: right hand; la1 16:33 Follow up: Response: No adverse reaction em 16:19 Drug: Zofran 4 mg {Note: administed in right thumb.} Route: IVP; Site: Other; em 16:33 Follow up: Response: No adverse reaction; Nausea is decreased em 16:33 Drug: Cipro 500 mg Route: PO; em 17:23 Follow up: Response: No adverse reaction em 16:33 Drug: metroNIDAZOLE 500 mg Route: PO; em 17:23 Follow up: Response: No adverse reaction em 16:56 Drug: Bentyl 20 mg Route: PO; em 17:23 Follow up: Response: No adverse reaction em 16:56 Drug: Magnesium Citrate Liquid 300 ml Route: PO; em 17:24 Follow up: Response: No adverse reaction em Intake: 17:00 IV: 1000ml; Total: 1000ml. em Outcome: 16:48 Discharge ordered by MD. cp 17:27 Discharged to home via wheelchair. em 17:27 Condition: good 17:27 Discharge instructions given to patient, Instructed on discharge instructions, follow up and referral plans. medication usage, Demonstrated understanding of instructions, follow-up care, medications, Prescriptions given X 5 17:29 Patient left the ED. em Signatures: Dispatcher [employer] EDJaved Mchugh, CORN BREEDER CORN BREEDER em Swetha Rodriguez RN RN ss James Hdez RN RN la1 Zeke Whitlock RN RN hj Page, Corey, PA PA cp Arthur, Tia tw3 Corrections: (The following items were deleted from the chart) 10:25 10:23 Pulse 121bpm; Resp 18bpm; Pulse Ox 99% RA; Temp 97.5F Temporal; 65.77 kg; Height hj 5 ft. 0 in.; BMI: 28.3; Pain 10; hj 14:29 04:10 Zofran 4 mg IVP in right hand ss ss
--- NOTE | 2017-07-20 16:49 | EDPHYS ---
Physician Documentation [facility] Name: Annmarie Garcia Age: 42 yrs Sex: Female : 1975 Arrival Date: 07/20/2017 Time: 10:19 Bed 17 Private MD: ED Physician Rick Riley HPI: 07/20 11:45 This 42 yrs old Female presents to ER via Ambulatory with complaints of cp Headache, Diarrhea. 11:45 The patient complains of pain to the top of head and forehead. The patient describes cp the headache as constant. 11:45 Onset: The symptoms/episode began/occurred yesterday. cp 11:45 Associated signs and symptoms: Pertinent positives: malaise, vomiting, 4 episodes of cp diarrhea, Pertinent negatives: fever, neck stiffness, paresthesias, weakness. Headache History: The patient has had previous headaches and this one is similar to previous episodes. The patient has experienced similar episodes in the past, multiple times, today's symptoms are similar, to previous migraines. 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 - Social history:: Smoking status: Patient/guardian denies using tobacco. ROS: 12:00 Constitutional: Negative for body aches, chills, fever, poor PO intake. cp 12:00 Eyes: Negative for injury, pain, redness, and discharge. cp 12:00 ENT: Negative for drainage from ear(s), ear pain, sore throat, difficulty swallowing, cp difficulty handling secretions. 12:00 Neck: Negative for pain with movement, pain at rest, stiffness, swollen nodes, tenderness. 12:00 Cardiovascular: Negative for chest pain, edema, palpitations. cp 12:00 Respiratory: Negative for cough, shortness of breath, wheezing. 12:00 Abdomen/GI: Positive for abdominal pain, nausea, vomiting, diarrhea, Negative for anorexia, black/tarry stool, rectal bleeding. 12:00 Back: Negative for pain at rest, pain with movement, radiated pain. 12:00 : Negative for urinary symptoms, pelvic pain. 12:00 Skin: Negative for cellulitis, rash. 12:00 Neuro: Positive for headache, Negative for altered mental status, dizziness, speech changes, weakness. 12:00 All other systems are negative. Exam: 12:05 Constitutional: The patient appears in no acute distress, alert, awake, non-toxic, well cp developed, well nourished, uncomfortable. 12:05 Head/Face: Normocephalic, atraumatic. Eyes: Pupils equal round and reactive to light, cp extra-ocular motions intact. Lids and lashes normal. Conjunctiva and sclera are non-icteric and not injected. Cornea within normal limits. Periorbital areas with no swelling, redness, or edema. 12:05 ENT: External ear(s): are unremarkable, Ear canal(s): are normal, clear, TM's: bulging, is not appreciated, bilaterally, dullness, bilaterally, erythema, is not appreciated, bilaterally, Nose: is normal, Mouth: Lips: dry, Oral mucosa: dry, Posterior pharynx: is normal, airway is patent, no erythema, no exudate, Voice: is normal. 12:05 Neck: ROM/movement: is normal, is supple, without pain, no range of motions limitations, no meningismus, no nuchal rigidity. 12:05 Chest/axilla: Inspection: normal, Palpation: is normal, no crepitus, no tenderness. 12:05 Cardiovascular: Rate: tachycardic, Rhythm: regular, Heart sounds: murmur, not appreciated, Edema: is not appreciated, JVD: is not appreciated. 12:05 Respiratory: the patient does not display signs of respiratory distress, Respirations: normal, no use of accessory muscles, no retractions, no splinting, no tachypnea, labored breathing, is not present, Breath sounds: are clear throughout, no decreased breath sounds, no stridor, no wheezing. 12:05 Abdomen/GI: Inspection: abdomen appears normal, Bowel sounds: active, all quadrants, cp Palpation: soft, in all quadrants, moderate abdominal tenderness, in all quadrants, rebound tenderness, is not appreciated, involuntary guarding, is not appreciated. 12:05 Back: pain, is absent, ROM is normal, CVA tenderness, is absent. 12:05 Skin: cellulitis, is not appreciated, no rash present. cp 12:05 Neuro: Orientation: to person, place \T\ time. Mentation: lucid, able to follow commands, Memory: is normal, Cerebellar function: is grossly normal, Motor: moves all fours, strength is normal, Sensation: no obvious gross deficits. Vital Signs: 10:23 BP 115 / 78; Pulse 121; Resp 18; Temp 97.5(TE); Pulse Ox 99% on R/A; Weight 65.77 kg; hj Height 5 ft. 0 in. (152.40 cm); Pain 10/10; 12:33 BP 114 / 76; Pulse 98; Resp 19; Pulse Ox 99% on R/A; em 13:00 BP 120 / 92; Pulse 96; Resp 18; Pulse Ox 99% on R/A; em 14:57 BP 120 / 77; Pulse 96; Resp 18; Pulse Ox 98% on R/A; Pain 7/10; em 16:00 BP 114 / 78; Pulse 111; Resp 18; Pulse Ox 98% on R/A; em 17:10 BP 124 / 91; Pulse 107; Resp 17; Pulse Ox 100% on R/A; Pain 6/10; em 10:23 Body Mass Index 28.32 (65.77 kg, 152.40 cm) MDM: 11:30 Patient medically screened. cp 12:00 Differential diagnosis: cluster headache, hypertensive headache, hypoglycemia, cp hyponatremia, migraine, neoplasm, otitis, sinusitis. 16:45 Data reviewed: vital signs, nurses notes, lab test result(s), radiologic studies, CT cp scan. 16:45 Counseling: I had a detailed discussion with the patient and/or guardian regarding: the cp historical points, exam findings, and any diagnostic results supporting the discharge/admit diagnosis, lab results, radiology results, the need for outpatient follow up, a family practitioner, to return to the emergency department if symptoms worsen or persist or if there are any questions or concerns that arise at home. Response to treatment: the patient's symptoms have markedly improved after treatment, and as a result, I will discharge patient. 07/20 11:39 Order name: Amylase, Serum; Complete Time: 15:18 cp 07/20 11:39 Order name: Basic Metabolic Panel; Complete Time: 15:18 cp 07/20 15:19 Interpretation: Normal except: CO2 16; BUN 23; CRE 1.26; GFR 47. cp 07/20 11:39 Order name: CBC with Diff; Complete Time: 14:56 cp 07/20 14:57 Interpretation: Normal except: TARIQ% 85.9; LYM% 9.8; MN% 2.6; NEUT A 13.8; WBC 16.1. cp 07/20 11:39 Order name: Creatinine for Radiology; Complete Time: 14:56 cp 07/20 16:44 Interpretation: Reviewed. cp 07/20 11:39 Order name: Hepatic Function; Complete Time: 15:18 cp 07/20 11:39 Order name: Lipase; Complete Time: 15:18 cp 07/20 11:39 Order name: Urine Microscopic Only; Complete Time: 14:56 cp 07/20 13:03 Order name: Urine Dipstick--Ancillary (enter results); Complete Time: 14:56 ag 07/20 14:57 Interpretation: UESTR TRACE; Reviewed. cp 07/20 14:33 Order name: CBC Smear Scan; Complete Time: 14:56 EDMS 07/20 15:22 Order name: CT Abd/Pelvis - Without Cont; Complete Time: 16:12 cp 07/20 11:39 Order name: Urine Test (obtain specimen); Complete Time: 13:02 cp 07/20 11:39 Order name: IV Saline Lock; Complete Time: 13:02 cp 07/20 11:39 Order name: Labs collected and sent; Complete Time: 13:02 cp 07/20 11:39 Order name: Urine Dipstick-Ancillary (obtain specimen); Complete Time: 13:02 cp 07/20 16:15 Order name: PO challenge; Complete Time: 16:19 cp Administered Medications: 11:39 CANCELLED (Physician Discretion): Dexamethasone 10 mg IVP once; (not to exceed 40 mg) cp 12:12 Drug: Pepcid 20 mg Route: IVP; Site: right hand; ss 15:09 Follow up: Response: No adverse reaction em 14:10 Drug: NS 0.9% 1000 ml Route: IV; Rate: 1 bolus; Site: right hand; ss 17:00 Follow up: IV Status: Completed infusion; IV Intake: 1000ml em 14:10 Drug: Zofran 4 mg Route: IVP; Site: right hand; ss 15:09 Follow up: Response: No adverse reaction em 14:14 Drug: Benadryl 25 mg Route: IVP; Site: right hand; ss 15:10 Follow up: Response: No adverse reaction em 14:16 Drug: Reglan 10 mg Route: IVP; Site: right hand; ss 15:10 Follow up: Response: No adverse reaction em 14:30 Drug: Decadron - Dexamethasone 10 mg Route: IVP; Site: right hand; ss 15:28 Follow up: Response: No adverse reaction em 16:11 Drug: morphine 4 mg Route: IVP; Site: right hand; la1 16:33 Follow up: Response: No adverse reaction em 16:19 Drug: Zofran 4 mg {Note: administed in right thumb.} Route: IVP; Site: Other; em 16:33 Follow up: Response: No adverse reaction; Nausea is decreased em 16:33 Drug: Cipro 500 mg Route: PO; em 17:23 Follow up: Response: No adverse reaction em 16:33 Drug: metroNIDAZOLE 500 mg Route: PO; em 17:23 Follow up: Response: No adverse reaction em 16:56 Drug: Bentyl 20 mg Route: PO; em 17:23 Follow up: Response: No adverse reaction em 16:56 Drug: Magnesium Citrate Liquid 300 ml Route: PO; em 17:24 Follow up: Response: No adverse reaction em Disposition: 18:51 Co-signature as Attending Physician, Rick Riley MD I agree with the assessment and kdr plan of care. Disposition: 07/20/17 16:48 Discharged to Home. Impression: Nausea and vomiting, Headache, Diarrhea, unspecified. - Condition is Stable. - Discharge Instructions: Diarrhea, Migraine Headache, Nausea and Vomiting. - Prescriptions for Bentyl 20 mg Oral Tablet - take 1 tablet by ORAL route every 6 hours As needed; 20 tablet. Fiorinal 50- 325-40 mg Oral Capsule - take 1 capsule by ORAL route every 4 hours As needed - not to exceed 6 capsules per day; 20 capsule. Zofran 4 mg Oral Tablet - take 1 tablet by ORAL route every 12 hours As needed; 20 tablet. Cipro 500 mg Oral Tablet - take 1 tablet by ORAL route every 12 hours for 7 days; 14 tablet. Metronidazole 500 mg Oral Tablet - take 1 tablet by ORAL route every 8 hours for 7 days; 21 tablet. - Medication Reconciliation Form, Thank You Letter, Antibiotic Education, Prescription Opioid Use form. - Follow up: Private Physician; When: 1 - 2 days; Reason: Recheck today's complaints. - Problem is new. - Symptoms have improved. Signatures: Dispatcher [employer] EDMS Rick Riley MD MD kdr Munoz, Edgar, PAPERHANGER AND PAINTER PAPERHANGER AND PAINTER em Swetha Rodriguez RN RN ss James Hdez RN RN la1 Zeke Whitlock RN RN Hermilo Stuart PA PA cp Corrections: (The following items were deleted from the chart) 11:39 11:39 Dexamethasone 10 mg IVP once; (not to exceed 40 mg) ordered. cp cp 14:57 14:57 Normal except: TARIQ% 85.9; LYM% 9.8; MN% 2.6; NEUT A 13.8. cp cp 16:41 12:40 This 42 yrs old Female presents to ER via Ambulatory with complaints of cp Headache, Diarrhea. cp
[2017-07-20] MEDS ORDERED: DICYCLOMINE HCL 10 MG CAP ONE (16:51)
[2017-07-20] MEDS ORDERED: MAGNESIUM CITRATE 300 ML BOT ONE (16:51)
[2017-07-20 17:41] VITALS: TEMP 97.5
[2017-07-20 17:46] VITALS: BP 124/91; O2SAT 100
== END 2017-07-20 17:29 | disposition home or self-care (01) ==
LOC: ER 10:17
DX: R51 Headache (principal); R19.7 Diarrhea, unspecified; G40.909 Epilepsy, unspecified, not intractable, without status epilepticus; I10 Essential (primary) hypertension; F41.9 Anxiety disorder, unspecified; E03.9 Hypothyroidism, unspecified; Z88.5 Allergy status to narcotic agent
CPT/HCPCS: 36415; 74176; 80048; 80076; 81003; 81015; 82150; 83690; 85025; 99283; J1100; J2405; J2765; J7030

== ENCOUNTER 2017-07-22 16:20 | Observation (INO) | payer OTHER ==
[~2017-07-22 16:20] MED LIST: NALOXONE HCL 2 MG/2 ML VIAL ONE
[2017-07-22 17:43] LABS: Absolute Lymphocytes (CBC) 2.6 K/uL (0.7-4.9); Absolute Monocytes 0.6 K/uL (0.1-1.3); Absolute Neutrophil 6.3 K/uL (1.8-8.0); Basophils % 1.1 % (0-1.3); Eosinophils % 2.5 % (0-4.4); Hematocrit 40.1 % (36.0-45.0); Lymphocytes % 26.5 % (15.3-44.8); MCH 29.4 pg (27.0-35.0); MCV 88.7 fL (80-100); MPV 8.4 fL (7.6-11.3); Monocytes % 6.2 % (3.3-12.3); RBC Red Blood Cell Count 4.52 M/uL (3.86-4.86)
--- NOTE | 2017-07-22 17:51 | RAD REPORT ---
EXAM DESCRIPTION: RAD - Chest Single View - 07/22/2017 5:15 pm CLINICAL HISTORY: Altered mental status, unresponsive COMPARISON: July 02 TECHNIQUE: AP portable chest image was obtained 1700 hours . FINDINGS: Lungs are clear. Heart and vasculature are normal. No measurable pleural effusion and no p neumothorax. No gross bony abnormality seen. No acute aortic findings suspected. IMPRESSION: No acute cardiopulmonary process. No significant interval change.
[2017-07-22 18:11] LABS: ALT/SGPT 9 IU/L (10-60); AST/SGOT 14 IU/L (10-42); Albumin 4.1 g/dL (3.2-5.5); Alkaline Phosphatase 87 IU/L (42-121); BUN Blood Urea Nitrogen 32 mg/dL (6-20); Bicarbonate 18 mEq/L (21-31); Bilirubin Direct < 0.1 mg/dL (0-0.2); Bilirubin Total 0.4 mg/dL (0.3-1.2); CKMB Creatine Kinase MB 3.5 ng/ml (0.3-4.0); Glucose Level 101 mg/dL (65-120); Magnesium 2.5 mg/dL (1.8-2.5); Potassium 3.7 mEq/L (3.6-5.0); Protein, Total 7.7 g/dL (6.0-8.3); Sodium Level 134 mEq/L (135-145)
[2017-07-22 18:48] LABS: Barbiturates POSITIVE; Benzodiazepines POSITIVE; Cocaine NEGATIVE; METHAMPHETAM NEGATIVE; Opiates NEGATIVE; Phencyclidine NEGATIVE; THC Cannibis NEGATIVE
--- NOTE | 2017-07-22 19:22 | ER ---
Nurse's Notes [facility] Name: Annmarie Garcia Age: 42 yrs Sex: Female : 1975 Arrival Date: 07/22/2017 Time: 16:22 Bed 2 Private MD: Diagnosis: Seizure;IZZY;N/V/D;Altered mental status / Unresponsive / CPR Presentation: 07/22 16:18 Presenting complaint: EMS states: pt found unresponsive in her bathroom and apneic. 1 sv round of CPR was performed by EMS. OPA was placed and pt came out of it but went back out en route. Versed 5 mg IM given. Pt placed on 100% NRB by EMS. Pt has known recreational drug use. Pt has a hard cast to the LLE. Transition of care: patient was not received from another setting of care. Onset of symptoms was July 22, 2017. Initial Sepsis Screen: Does the patient meet any 2 criteria? Altered Mental Status. HR > 90 bpm. Yes Does the patient have a suspected source of infection? No. Patient's initial sepsis screen is negative. Care prior to arrival: CPR manually performed by EMS Oxygen administered. via a non-rebreather mask. 16:18 Method Of Arrival: EMS: [facility] sv 16:18 Acuity: SELVIN 1 sv Triage Assessment: 16:18 General: Appears unkempt, Behavior is drowsy, uncooperative. Pain: Unable to use pain sv scale. Patient is disoriented. FLACC scale score is 0 out of 10. EENT: No signs and/or symptoms were reported regarding the EENT system. Neuro: Level of Consciousness is lethargic, unresponsive, Dr Christianson asked EMS if pt had received Narcan en route. Pt woke up and started speaking. EMS stated pt did not receive any Narcan.. Cardiovascular: Patient's skin is warm and dry. Pulses are palpable in right radial artery and left radial artery. Respiratory: Respiratory effort is even, unlabored, Respiratory pattern is regular, symmetrical. Derm: Skin is normal. Musculoskeletal: Pt has hard cast to the left leg. 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 - Social history:: Smoking status: Patient uses tobacco products, Patient/guardian denies using alcohol, street drugs. Screenin:47 Abuse screen: Denies threats or abuse. Denies injuries from another. Nutritional sv screening: No deficits noted. Tuberculosis screening: No symptoms or risk factors identified. Fall Risk None identified. Assessment: 16:35 Reassessment: IV placed, pt did not respond to insertion. Dr Christianson came to bedside. Pt sv still drowsy. I asked Dr Christianson if he wanted me to give the Narcan. He stated that if the pt continues to not be alert we will give it. Pt woke up and asked "Why do yall still want to give me Narcan? Yall can test me." Informed pt that she needed to stay awake. 17:00 Reassessment: Patient appears in no apparent distress at this time. No changes from sv previously documented assessment. Patient and/or family updated on plan of care and expected duration. Pain level reassessed. Pt still appears drowsy. 18:20 Reassessment: Patient appears in no apparent distress at this time. Patient and/or sv family updated on plan of care and expected duration. Pain level reassessed. Patient is alert, oriented x 3, equal unlabored respirations, skin warm/dry/pink. Pt assisted up to the bedside commode to obtain urine sample. 18:50 Reassessment: Dr Christianson speaking with the mother. sv 19:20 General: Appears in no apparent distress. comfortable, Behavior is calm, cooperative, ao appropriate for age. Pain: Complains of pain in left radial artery and right radial artery Pain currently is 7 out of 10 on a pain scale. Neuro: Level of Consciousness is awake, alert, obeys commands, Oriented to person, place, time, situation, Appropriate for age Moves all extremities. Speech is normal, Facial symmetry appears normal. Cardiovascular: Patient's skin is warm and dry. Respiratory: Airway is patent Respiratory effort is even, unlabored, Respiratory pattern is regular, symmetrical. GI: Abdomen is non-distended. : No signs and/or symptoms were reported regarding the genitourinary system. EENT: No signs and/or symptoms were reported regarding the EENT system. Derm: Skin is intact, Skin temperature is warm. Musculoskeletal: Range of motion: intact in all extremities. 20:10 Reassessment: Patient appears in no apparent distress at this time. Patient and/or ao family updated on plan of care and expected duration. Pain level reassessed. Patient is alert, oriented x 3, equal unlabored respirations, skin warm/dry/pink. Waiting on Dr Carrero Orders. 20:10 Reassessment: Patient appears in no apparent distress at this time. Patient and/or ao family updated on plan of care and expected duration. Pain level reassessed. Patient is alert, oriented x 3, equal unlabored respirations, skin warm/dry/pink. Patient to be transported to her room. Vital Signs: 16:15 BP 99 / 60; Pulse 123; Resp 16; Pulse Ox 100% on Non-rebreather mask; sv 16:34 BP 103 / 75; Pulse 114; Resp 18; Pulse Ox 100% on 2 lpm NC; sv 17:40 BP 94 / 72; Pulse 103; Resp 16; Pulse Ox 100% ; sv 18:55 BP 95 / 67; Pulse 106; Resp 15; Pulse Ox 100% on 2 lpm NC; sv 20:20 BP 94 / 57; Pulse 106; Resp 18; Pulse Ox 98% on NC; mt ED Course: 16:22 Patient arrived in ED. iw 16:24 Chad Christianson MD is Attending Physician. ps1 16:30 Inserted saline lock: 24 gauge in left forearm, using aseptic technique. Flushed left sv forearm with 5 ml normal saline. 16:30 EKG done, by budget technician. reviewed by Chad Christianson MD. at1 16:39 Kenia Le, MITCHELL is Primary Nurse. sv 16:44 Triage completed. sv 16:47 Patient has correct armband on for positive identification. Placed in gown. Bed in low sv position. Call light in reach. Side rails up X2. hall monitor on. Pulse ox on. NIBP on. Door closed. Warm blanket given. Head of bed elevated. 16:50 Arm band placed on right wrist. sv 17:15 XRAY Chest (1 view) In Process Unspecified. EDMS 17:57 EKG done, by budget technician. reviewed by Chad Christianson MD Repeat EKG. at1 19:00 Report given to Luis MEDRANO. sv 19:20 Kitty Jimenez MD is Hospitalizing Provider. ps1 22:20 No provider procedures requiring assistance completed. Patient admitted, IV remains in ao place. Administered Medications: 19:33 Drug: Benadryl 25 mg Route: IVP; Site: left forearm; sv 19:36 Drug: Reglan 10 mg Route: IVP; Site: left forearm; sv 19:56 Not Given (Physician Discretion; PT OPIOID NEGATIVE): NARcan 1 mg IVP once bp Outcome: 19:21 Decision to Hospitalize by Provider. ps1 22:20 Admitted to Tele accompanied by tech, room 428, Report called to MITCHELL Rodriguez ao 22:20 Condition: stable 22:20 Instructed on the need for admit. 22:22 Patient left the ED. ao Signatures: Dispatcher [employer] EDMS Kenia Le, RN RN sv Hyun Hale RN MITCHELL iw Peggy fajardo, refueler EKG Tat1 Rod Alexis RN RN ao Jagruti Adams mt, Phillip, MD MD ps1 Peltier, Brian RN bp Corrections: (The following items were deleted from the chart) 16:49 16:45 BP 99 / 60; Pulse 123bpm; Resp 16bpm; Pulse Ox 100% Non-rebreather mask; sv sv 19:18 18:55 BP 95 / 67; Pulse 16bpm; Resp 15bpm; Pulse Ox 100% 2 lpm Nasal Cannula; sv sv
--- NOTE | 2017-07-22 19:22 | EDPHYS ---
Physician Documentation [facility] Name: Annmarie Garcia Age: 42 yrs Sex: Female : 1975 Arrival Date: 07/22/2017 Time: 16:22 Bed 2 Private MD: ED Physician Chad Christianson HPI: 07/22 16:24 This 42 yrs old Female presents to ER via Unassigned with complaints of ps1 opioid overdose. 16:24 The patient presents with decreased mental status. Onset: The symptoms/episode ps1 began/occurred just prior to arrival. Possible causes: drug use, narcotics. Associated signs and symptoms: Pertinent positives: unresponsive apneic. Current symptoms: In the emergency department the patient's symptoms have improved, mildly, is more alert. Patient's baseline: Neuro: alert and fully oriented, Motor: no deficits. hx of fasciotomy from compartment syndrome. Chronic pain medications. IVDA tracks on arms. CPR 1 round ROSC. 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 Still somnolent. . 19:09 Recent admission with colitis home on cipro/flagyl. ps1 MEDICAL DIRECTOR/HEAD TEAM PHYSICIAN: 22:21 LMP N/A - ao Historical: - Allergies: 16:45 OxyContin; sv - Home Meds: 20:05 Flexeril 10 mg Oral tab 1 tab 2 times per day [Active]; gabapentin 800 mg Oral tab 1 ao tab 3 times per day [Active]; Keppra 500 mg Oral tab 1 tab daily [Active]; Tegretol 200 mg Oral tab 1 tab bedtime [Active]; - PMHx: 16:45 Anxiety; Asthma; decreased kidney fx; Hypertension; Hypothyroidism; Migraines; R arm sv compartment syndrome; R leg compartment syndrome; Seizures; suicidal ideation; - PSHx: 16:45 Left foot; sv - Immunization history:: Adult Immunizations unknown. - Social history:: Smoking status: Patient uses tobacco products, Patient/guardian denies using alcohol, street drugs. ROS: 18:26 Unable to obtain ROS due to altered mental status. ps1 Exam: 18:26 Head/Face: Normocephalic, atraumatic. Eyes: Pupils equal round and reactive to light, ps1 extra-ocular motions intact. Lids and lashes normal. Conjunctiva and sclera are non-icteric and not injected. ENT: Nares patent. No nasal discharge, no septal abnormalities noted. Tympanic membranes are normal and external auditory canals are clear. Oropharynx with no redness, swelling, or masses, exudates, or evidence of obstruction, uvula midline. Mucous membranes moist. Chest/axilla: Normal chest wall appearance and motion. Nontender with no deformity. No lesions are appreciated. Cardiovascular: Regular rate and rhythm. No gallops, murmurs, or rubs. Normal PMI, no JVD. No pulse deficits. Respiratory: Lungs have equal breath sounds bilaterally, clear to auscultation and percussion. No rales, rhonchi or wheezes noted. No increased work of breathing, no retractions or nasal flaring. Abdomen/GI: Soft, non-tender, with normal bowel sounds. No distension or tympany. No guarding or rebound. No evidence of tenderness throughout. 18:26 Skin: Warm, dry with normal turgor. Normal color with no rashes, no lesions, and no evidence of cellulitis. Neuro: Awake and alert, GCS 15, oriented to person, place, time, and situation. Cranial nerves II-XII grossly intact. Sensory grossly intact. 18:26 Constitutional: The patient appears listless, awakened when narcan was ordered. Said why the hell are you going to give me narcan. 18:26 Musculoskeletal/extremity: Extremities: multiple scars from previous surgical procedures. Multiple track burroughs on arms with suspected IVDA. . Vital Signs: 16:15 BP 99 / 60; Pulse 123; Resp 16; Pulse Ox 100% on Non-rebreather mask; sv 16:34 BP 103 / 75; Pulse 114; Resp 18; Pulse Ox 100% on 2 lpm NC; sv 17:40 BP 94 / 72; Pulse 103; Resp 16; Pulse Ox 100% ; sv 18:55 BP 95 / 67; Pulse 106; Resp 15; Pulse Ox 100% on 2 lpm NC; sv 20:20 BP 94 / 57; Pulse 106; Resp 18; Pulse Ox 98% on NC; mt MDM: 16:28 Patient medically screened. ps1 07/22 16:27 Order name: Ckmb; Complete Time: 18:18 ps1 07/22 16:27 Order name: Basic Metabolic Panel; Complete Time: 18:18 ps1 07/22 16:27 Order name: CBC with Diff; Complete Time: 17:58 ps1 07/22 16:27 Order name: LFT's; Complete Time: 18:18 ps1 07/22 16:27 Order name: Magnesium; Complete Time: 18:18 ps1 07/22 16:27 Order name: Troponin (emerg Dept Use Only); Complete Time: 18:02 ps1 07/22 16:27 Order name: XRAY Chest (1 view); Complete Time: 17:58 ps1 07/22 16:27 Order name: EKG; Complete Time: 16:33 ps1 07/22 18:29 Order name: Urine Drug Screen; Complete Time: 19:01 EDMS 07/22 18:46 Order name: Urine Dipstick--Ancillary (enter results) [email or web address] 07/22 16:27 Order name: Cardiac monitoring; Complete Time: 16:48 ps1 07/22 16:27 Order name: EKG - Nurse/Tech; Complete Time: 19:19 ps1 07/22 16:27 Order name: IV Saline Lock; Complete Time: 16:48 ps1 07/22 16:27 Order name: Labs collected and sent; Complete Time: 19:19 ps1 07/22 16:27 Order name: O2 Per Protocol; Complete Time: 16:48 ps1 07/22 16:27 Order name: O2 Sat Monitoring; Complete Time: 16:48 ps1 07/22 16:27 Order name: Urine Dipstick-Ancillary (obtain specimen); Complete Time: 19:19 ps1 07/22 17:59 Order name: EKG Electrocardiogram; Complete Time: 18:56 EDMS EC:50 Rate is 103 beats/min. Rhythm is regular. QRS [place] is Normal. [place] interval is normal. ps1 QRS interval is normal. QT interval is normal. No Q waves. T waves are Flattened. No ST changes noted. Clinical impression: Sinus tachycardia and nonspecific t wave abnormalities. Interpreted by me. Administered Medications: 19:33 Drug: Benadryl 25 mg Route: IVP; Site: left forearm; sv 19:36 Drug: Reglan 10 mg Route: IVP; Site: left forearm; sv 19:56 Not Given (Physician Discretion; PT OPIOID NEGATIVE): NARcan 1 mg IVP once bp Disposition: 07/22/17 19:21 Hospitalization ordered by Kitty Jimenez for Inpatient Admission. Preliminary diagnosis are Seizure, IZZY, N/V/D, Altered mental status / Unresponsive / CPR. - Bed requested for Telemetry/MedSurg (Inpatient). - Status is Inpatient Admission. ao - Condition is Fair. - Problem is an ongoing problem. - Symptoms are unchanged. UTI on Admission? No Signatures: Dispatcher [employer] EDKenia Duff, RN RN Deja Ivey RN Rod Asencio RN RN Chad Aldrich MD MD ps1 Peltier, Brian RN bp Corrections: (The following items were deleted from the chart) 19:32 19:10 URINE DRUG SCREEN+CHEM UR.LAB.BRAlvaro ordered. EDMS EDMS
[2017-07-22] MEDS ORDERED: DIPHENHYDRAMINE 50 MG/ML VIAL ONE (19:27)
[2017-07-22] MEDS ORDERED: METOCLOPRAMIDE 10 MG/2mL INJ ONE (19:27)
[2017-07-22 19:34] LABS: Urine Blood NEGATIVE (NEG); Urine Glucose NEGATIVE (NEG); Urine Protein NEGATIVE (NEG); Urine Specific Gravity <1.005 (1.005-1.030)
--- NOTE | 2017-07-22 20:36 | P.HP ---
Certification for Inpatient Patient admitted to: Observation With expected LOS: <2 Midnights Practitioner: I am a practitioner with admitting privileges, knowledge of patient current condition, hospital course, and medical plan of care. Services: Services provided to patient in accordance with Admission requirements found in Title 42 Section 412.3 of the Code of Federal Regulations Patient History Date of Service: 07/22/17 Reason for admission: acute encephalopathy History of Present Illness: Ms Garcia is a 42 years old woman with history seizure vs pseudoseizure disorder , bipolar disorder, chronic pain syndrome, who was found unresponsive in her bathroom this afternoon. When EMS arrived she was apparently apneic. They start CPR on her, placed on NR mask, then she was transfer to ER when vital signs stable. There is no history of fever, chills, new localized pain. At my encounter she was alert and oriented. She does not remember what happened. Lab work remarkable for increased creatinine, mother says that she has not been drinking or eating well for the last couple of days, she was diagnosed with colitis. AU was mildly abnormal. Allergies oxycodone [From OxyContin] Allergy (Mild, Verified 08/08/16 18:18) hallucinations Home Medications: Butalb/Acetaminophen/Caffeine [Hpiehl-Bwxtjnxj-Nobx 50-300-40] 1 cap PO BID 11/21 Clonazepam [Klonopin*] 0.5 mg PO TID 09/12/16 Cyclobenzaprine HCl [Flexeril] 5 mg PO DAILY PRN 09/12/16 Epitol 200 mg PO BEDTIME 09/12/16 Gabapentin 800 mg PO TID 09/12/16 Hydrocodone/Acetaminophen [Hydrocodone-Acetamin 10-325 mg] 1 tab PO Q6HP PRN 11/21 Nortriptyline HCl [Pamelor] 75 mg PO BID 09/12/16 Clonazepam [Klonopin*] 1 mg PO BID #60 tab 03/28/17 Levetiracetam 500 mg PO DAILY PRN 03/28/17 Meloxicam 1 tab PO DAILY 03/28/17 Mirtazapine [Remeron] 1 tab PO BEDTIME 03/28/17 - Past Medical/Surgical History Diabetic: No -: Asthma -: Migraine disorder -: Pseudoseizures -: Bipolar disorder -: Schizoaffective disorder -: History of multiple suicide attempts -: History of drug overdoses -: Chronic pain disorder -: Tobacco abuse -: History of compartment syndrome requiring fasciotomy -: Nasal surgery -: Fasciotomy in to the upper and lower extremities. -: Skin graft to the left thigh Psychosocial/ Personal History: Patient currently lives with her boyfriend. Patient has 1 child. Her aunt reports that the patient is not able to ambulate appropriately due to her recent fasciotomies. - Social History Smoking Status: Never smoker Alcohol use: No CD- Drugs: No Caffeine use: Yes Place of Residence: Home Review of Systems 10-point ROS is otherwise unremarkable Physical Examination - Physical Exam General: Alert, In no apparent distress HEENT: Atraumatic, PERRLA, Mucous membr. moist/pink, EOMI, Sclerae nonicteric Neck: Supple, 2+ carotid pulse no bruit, No LAD, Without JVD or thyroid abnormality Respiratory: Clear to auscultation bilaterally, Normal air movement Cardiovascular: Regular rate/rhythm, Normal S1 S2 Gastrointestinal: Normal bowel sounds, No tenderness Musculoskeletal: No tenderness Integumentary: No rashes Neurological: Normal speech, Normal strength at 5/5 x4 extr, Normal tone, Normal affect Lymphatics: No axilla or inguinal lymphadenopathy - Studies Laboratory Data (last 24 hrs) 07/22/17 17:05: WBC 9.9 D, Hgb 13.3, Hct 40.1, Plt Count 314 D 07/22/17 17:05: Sodium 134 L, Potassium 3.7, BUN 32 H, Creatinine 2.02 H, Glucose 101, Magnesium 2.5 D, Total Bilirubin 0.4, AST 14, ALT 9 L, Alkaline Phosphatase 87 Assessment and Plan - Problems (Diagnosis) (1) Acute encephalopathy Current Visit: Yes Status: Acute (2) Acute kidney injury Onset Date: 09/13/16 Current Visit: No Status: Acute (3) S/P compartment syndrome decompression Current Visit: No Status: Acute (4) Bipolar disorder Onset Date: 04/23/16 Current Visit: No Status: Chronic Qualifiers: Active/Remission status: in remission of unspecified degree Qualified Code( s): F31.70 - Bipolar disorder, currently in remission, most recent episode unspecified (5) Chronic pain due to trauma Onset Date: 09/13/16 Current Visit: No Status: Chronic - Plan Ms Garcia will be admitted to the hospital after been found unresponsive at home , apneic requiring 1 round of CPR by EMS. She has history of seizure/ pseudoseizure disorder. She also is polymedicated with sedative medication. No signs of systemic infection. UA abnormal consistent with UTI. Her creatinine is elevated, likely due to volume depletion. At this point is not clear the etiology of her symptoms. Will admit the patient under observation, start IV fluids, empiric rocephin. consult Dr Gonsalez. - Advance Directives Does patient have a Living Will: No Does patient have a Durable POA for Healthcare: No - Code Status/Comfort Care Code Status Assessed: Yes Code Status: Full Code
[2017-07-22] MEDS: ONDANSETRON 4 MG/2 ML VIAL IV PRN (23:24)
[2017-07-22] MEDS: NA CHLORIDE 0.9% 1,000 ML IV SCH (23:38)
--- NOTE | 2017-07-23 | EKG ---
Test Date: 2017-07-22 Test Time: 16:55:39 Skid Machine Operator: USHA MEASUREMENT RESULTS: Intervals: Rate: 108 IL: 156 QRSD: 92 QT: 346 QTc: 463 [place]: P: 62 IL: 156 QRS: 57 T: 62 INTERPRETIVE STATEMENTS: Sinus tachycardia Otherwise normal ECG Compared to ECG 07/02/2017 11:00:38 Sinus rhythm no longer present Electronically Signed On 07-23-17 00:00:30 CDT by Anibal Miller
--- NOTE | 2017-07-23 | EKG ---
Test Date: 2017-07-22 Test Time: 17:50:44 Carving Machine Operator: USHA MEASUREMENT RESULTS: Intervals: Rate: 103 PA: 162 QRSD: 94 QT: 362 QTc: 474 [place]: P: 56 PA: 162 QRS: 60 T: 69 INTERPRETIVE STATEMENTS: Sinus tachycardia Nonspecific T wave abnormality Abnormal ECG Compared to ECG 07/22/2017 16:55:39 T-wave abnormality now present Electronically Signed On 07-23-17 00:00:18 CDT by Anibal Miller
[2017-07-23] MEDS ORDERED: clonazePAM 1 MG TAB PO PRN (00:59)
[2017-07-23] MEDS ORDERED: NORTRIPTYLINE HCL 25 MG CAP PO SCH (01:15)
[2017-07-23 01:33] VITALS: BMI 26.6
[2017-07-23] MEDS ORDERED: GABAPENTIN 300 MG CAP PO SCH (02:00)
[2017-07-23] MEDS: PROMETHAZINE 25 MG/ML VIAL IV PRN ×2 (04:25→10:45)
[2017-07-23] MEDS: TRAMADOL HCL 50 MG TAB PO PRN ×2 (07:17→14:01)
[2017-07-23] MEDS ORDERED: POTASSIUM CL SA 10 MEQ TAB PO ONE (08:00)
[2017-07-23] MEDS: ONDANSETRON 4 MG/2 ML VIAL IV PRN (08:04)
[2017-07-23] MEDS: GABAPENTIN 400 MG CAP PO SCH ×2 (08:04→14:02)
[2017-07-23] MEDS ORDERED: levETIRAcetam 500 MG TAB PO SCH (09:00)
[2017-07-23] MEDS ORDERED: ENOXAPARIN 30 MG/0.3 ML SQ SCH (09:00)
[2017-07-23] MEDS ORDERED: HOME MED 1 EA UNK (Gabapentin [Neurontin] 800 MG) PO SCH (09:00)
[2017-07-23] MEDS: NA CHLORIDE 0.9% 1,000 ML IV SCH (10:02)
[2017-07-23 10:48] VITALS: O2SAT 96
[2017-07-23] MEDS ORDERED: HYDROCODONE/APAP 5/325 MG TAB PO ONE (11:31)
[2017-07-23 13:25] VITALS: BP 111/62; TEMP 98
[2017-07-23] MEDS ORDERED: BUTALBITAL PO PRN (14:20)
[2017-07-23] MEDS ORDERED: CAFFEINE PO PRN (14:20)
[2017-07-23] MEDS ORDERED: ASPIRIN PO PRN (14:20)
--- NOTE | 2017-07-23 17:30 | P.SSS ---
Patient History Date of Service: 07/23/17 Reason for admission: acute encephalopathy History of Present Illness: See HPI Allergies oxycodone [From OxyContin] Allergy (Mild, Verified 07/22/17 23:12) hallucinations Home Medications: Butalbital/Aspirin/Caffeine [Fiorinal 50-325-40 mg Capsule] 1 tab PO Q6H PRN Carbamazepine [Tegretol] 200 mg PO BEDTIME 07/23/17 Clonazepam [Klonopin*] 1 mg PO TIDP PRN 07/23/17 Gabapentin [Neurontin] 800 mg PO TID 07/23/17 Levetiracetam [Keppra*] 1,000 mg PO DAILY 07/23/17 Nortriptyline HCl [Pamelor] 150 mg PO BEDTIME 07/23/17 - Past Medical/Surgical History Has patient received pneumonia vaccine in the past: No Diabetic: No -: Asthma -: Migraine disorder -: Pseudoseizures -: Bipolar disorder -: Schizoaffective disorder -: History of multiple suicide attempts -: History of drug overdoses -: Chronic pain disorder -: Tobacco abuse -: History of compartment syndrome requiring fasciotomy -: Nasal surgery -: Fasciotomy in to the upper and lower extremities. -: Skin graft to the left thigh Psychosocial/ Personal History: Patient currently lives with her boyfriend. Patient has 1 child. Her aunt reports that the patient is not able to ambulate appropriately due to her recent fasciotomies. - Family History Mother -: Hypertension, Diabetes Notes: migraines, crohns - Social History Smoking Status: Never smoker Alcohol use: No CD- Drugs: No Caffeine use: Yes Place of Residence: Home Review of Systems General: As per HPI Physical Examination - Vital Signs Temperature: 98 F Blood Pressure: 111/62 Pulse: 100 Respirations: 18 Pulse Ox (%): 98 - Physical Exam General: Alert, In no apparent distress, Oriented x3 HEENT: Atraumatic, PERRLA, Mucous membr. moist/pink, EOMI, Sclerae nonicteric Neck: Supple, 2+ carotid pulse no bruit, No LAD, Without JVD or thyroid abnormality Respiratory: Clear to auscultation bilaterally, Normal air movement Cardiovascular: Regular rate/rhythm, Normal S1 S2 Gastrointestinal: Normal bowel sounds, No tenderness Musculoskeletal: No tenderness Integumentary: No rashes Neurological: Normal gait, Normal speech, Normal strength at 5/5 x4 extr, Normal tone, Normal affect Lymphatics: No axilla or inguinal lymphadenopathy - Studies Laboratory Data (last 24 hrs) 07/22/17 17:05: WBC 9.9 D, Hgb 13.3, Hct 40.1, Plt Count 314 D 07/22/17 17:05: Sodium 134 L, Potassium 3.7, BUN 32 H, Creatinine 2.02 H, Glucose 101, Magnesium 2.5 D, Total Bilirubin 0.4, AST 14, ALT 9 L, Alkaline Phosphatase 87 - Diagnosis (Problem(s)) (1) Acute encephalopathy Onset Date: 07/23/17 Status: Resolved (2) Seizure Onset Date: 09/13/16 Status: Resolved (3) Bipolar disorder Onset Date: 04/23/16 Status: Chronic Qualifiers: Active/Remission status: in remission of unspecified degree Qualified Code( s): F31.70 - Bipolar disorder, currently in remission, most recent episode unspecified (4) Schizoaffective disorder Onset Date: 04/23/16 Status: Chronic Qualifiers: Schizoaffective disorder type: other Qualified Code(s): F25.8 - Other schizoaffective disorders Treatment Summary: Overall during the hospital stay patient remained stable. The patient was initially admitted to the hospital for altered mental status and concern for urinary tract infection. Patient was in the bathroom when she will apparently passed out and hit her head and was shaking vigorously. Patient 's grandmother was in the bathroom and witnessed this episode. 911 was called and since patient was found unconscious CPR was started. Patient did however have a pulse and initial rhythm was normal sinus rhythm. Patient was brought over to the ER and had not had any other episodes of seizures here in the hospital. Patient was restarted back on anemic all her medications and is doing well overall. EEG done here in the hospital was negative and this neurology recommended the patient be discharged home and have follow up outpatient in about 1 week. Patient will get an MRI done as outpatient to follow up with any other symptoms. Patient and family. Educated extensively on taking medications as prescribed along with chronic pain syndrome. Patient demonstrated understanding. - Disposition Disposition: ROUTINE DISCHARGE Condition: GOOD Diet: Regular Activity: Ad eloisa
[2017-07-23] MEDS ORDERED: NORTRIPTYLINE HCL 150 MG PO SCH (21:00)
[2017-07-23] MEDS ORDERED: CARBAMAZEPINE 200 MG TAB PO SCH (21:00)
--- NOTE | 2017-07-24 09:59 | EEG ---
CHART: [id number] TEST ID#: [id number] DATE OF STUDY: 07/23/2017 THE EEG WAS RECORDED PORTABLE IN THE PATIENT'S ROOM ON A 17 CHANNEL MACHINE. ELECTRODES WERE APPLIED IN THE USUAL MANNER USING THE INTERNATIONAL 10-20 SYSTEM. THE WAKING BACKGROUND RHYTHM IN THIS RECORD CONSISTS OF FAIRLY WELL DEVELOPED AND FAIRLY WELL ORGANIZED WAVES OF 9-10 HZ., MAXIMAL IN THE POSTERIOR HEAD REGIONS WHICH ATTENUATE NORMALLY WITH EYE OPENING. LOW-VOLTAGE 18-22 HZ ACTIVITY MIXED WITH INTERMITTENT MODERATE VOLTAGE 3-4 HZ ACTIVITY IS EXPRESSED IN THE FRONTAL AND CENTRAL REGIONS. THERE ARE NO FOCAL OR LATERALIZING FEATURES. NO EPILEPTIFORM ACTIVITY APPEARS. SLEEP OCCURRED NATURALLY. IN ADDITION NORMAL SLEEP PATTERNS ARE PRESENT. HYPERVENTILATION WAS NOT PERFORMED. PHOTIC STIMULATION PRODUCED FAIR DRIVING BILATERALLY. IMPRESSION: THIS IS A MILDLY ABNORMAL EEG DUE TO A MILDLY SLOW BACKGROUND. THIS IS A NON-SPECIFIC FINDING INDICATING A MILD DIFFUSE DISTURBANCE IN CEREBRAL ACTIVITY.
== END 2017-07-23 15:13 | disposition home or self-care (01) ==
LOC: ER 16:20 → INTOOBSV 19:21 → ERHOLD 19:21 → 4TH 21:35
PROVIDERS: ADMIT Internal Medicine; ATTEND Internal Medicine
DX: G93.40 Encephalopathy, unspecified (principal); F31.9 Bipolar disorder, unspecified; G89.4 Chronic pain syndrome; N17.9 Acute kidney failure, unspecified; R56.9 Unspecified convulsions; F25.0 Schizoaffective disorder, bipolar type
CPT/HCPCS: 36415; 70551; 71045; 80048; 80076; 80307; 81003; 82553; 83735; 84484; 85025; 93005; 94760; 95816; 96374; 96375; 99291; 99292; A9577; G0378; J1650; J2405; J2550; J2765; J7030

== ENCOUNTER 2017-07-26 16:13 | Emergency (ER) | payer OTHER ==
[2017-07-26] MEDS ORDERED: ONDANSETRON 4 MG/2 ML VIAL ONE (16:51)
[2017-07-26] MEDS ORDERED: NA CHLORIDE 0.9% 1,000 ML ONE ×2 (16:51→19:18)
[2017-07-26] MEDS ORDERED: FAMOTIDINE 20 MG/2 ML VIAL IV ONE (16:51)
--- NOTE | 2017-07-26 17:37 | RAD REPORT ---
EXAM DESCRIPTION: Deedee Single View07/26/2017 5:13 pm CLINICAL HISTORY: abd pain COMPARISON: July 22, 2017 FINDINGS: The lungs appear clear of acute infiltrate. The heart is normal size IMPRESSION: No acute abnormalities displayed
[2017-07-26] MEDS ORDERED: LEVETIRACETAM 500 MG/5 ML VIAL IV ONE (19:17)
[2017-07-26] MEDS ORDERED: DEXAMETHASONE 10 MG/ML VIAL ONE (19:17)
[2017-07-26 19:18] LABS: Absolute Lymphocytes (CBC) 1.7 K/uL (0.7-4.9); Absolute Monocytes 0.3 K/uL (0.1-1.3); Absolute Neutrophil 4.5 K/uL (1.8-8.0); Basophils % 0.7 % (0-1.3); Eosinophils % 3.9 % (0-4.4); Hematocrit 29.3 % (36.0-45.0); Lymphocytes % 25.2 % (15.3-44.8); MCH 30.2 pg (27.0-35.0); MCV 88.9 fL (80-100); MPV 8.5 fL (7.6-11.3)
[2017-07-26] MEDS ORDERED: METOCLOPRAMIDE 10 MG/2mL INJ ONE (19:18)
[2017-07-26] MEDS ORDERED: NA CHLORIDE 0.9% 0 ML IV ONE (19:18)
[2017-07-26 19:19] LABS: Bicarbonate 20 mEq/L (21-31); Glucose Level 92 mg/dL (65-120); Potassium 3.7 mEq/L (3.6-5.0); Sodium Level 141 mEq/L (135-145)
[2017-07-26] MEDS ORDERED: NA CHLORIDE 0.9% 100 ML IV ONE (19:19)
[2017-07-26 19:27] LABS: ALT/SGPT 8 IU/L (10-60); AST/SGOT 12 IU/L (10-42); Albumin 3.2 g/dL (3.2-5.5); Alcohol Serum/Plasma < 10 mg/dl; Alkaline Phosphatase 71 IU/L (42-121); BUN Blood Urea Nitrogen 10 mg/dL (6-20); Bilirubin Direct 0.1 mg/dL (0-0.2); Bilirubin Total < 0.2 mg/dL (0.3-1.2); Creatine Phosphokinase 104 IU/L (22-269); Protein, Total 6.2 g/dL (6.0-8.3); Salicylates Level < 4.0 mg/dl (<30)
[2017-07-26 19:28] LABS: CKMB Creatine Kinase MB 2.1 ng/ml (0.3-4.0); Magnesium 1.4 mg/dL (1.8-2.5)
[2017-07-26] MEDS ORDERED: MAGNESIUM SULFATE 1 gm IVPB 1 GM/100 ML BAG IV ONE (19:47)
[2017-07-26] MEDS ORDERED: ACETAMIN/CAFFEINE/BUTALB TAB PO ONE (19:50)
[2017-07-26 20:00] LABS: Urine Blood NEGATIVE (NEG); Urine Glucose NEGATIVE (NEG); Urine Protein NEGATIVE (NEG); Urine Specific Gravity 1.015 (1.005-1.030); Urine pH 6.5 (5.0-7.0)
[2017-07-26 20:20] LABS: Barbiturates NEGATIVE; Benzodiazepines NEGATIVE; Cocaine NEGATIVE; METHAMPHETAM NEGATIVE; Opiates NEGATIVE
[2017-07-26 20:29] LABS: Phencyclidine ND; THC Cannibis ND
--- NOTE | 2017-07-26 20:41 | EDPHYS ---
Physician Documentation [facility] Name: Annmarie Garcia Age: 42 yrs Sex: Female : 1975 Arrival Date: 07/26/2017 Time: 16:16 Bed 6 Private MD: ED Physician Chad Christianson HPI: 07/26 16:50 This 42 yrs old Female presents to ER via Wheelchair with complaints of cp Abdominal Pain. 16:50 The patient presents with abdominal pain in the lower abdomen. Onset: The cp symptoms/episode began/occurred today. The symptoms do not radiate. Associated signs and symptoms: Pertinent positives: nausea, Pertinent negatives: blood in stools, chest pain, constipation, diarrhea, vomiting. Severity of pain: in the emergency department the pain is unchanged despite home interventions. Patient reports possible seizure today. Patient states she got up to use restroom and awoke on floor. 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 - Social history:: Smoking status: Patient/guardian denies using tobacco. ROS: 16:55 Constitutional: Negative for body aches, chills, fever, poor PO intake. cp 16:55 Eyes: Negative for injury, pain, redness, and discharge. cp 16:55 ENT: Negative for drainage from ear(s), ear pain, sore throat, difficulty swallowing, difficulty handling secretions. 16:55 Neck: Negative for pain with movement, pain at rest, stiffness, tenderness. 16:55 Cardiovascular: Negative for chest pain, palpitations. 16:55 Respiratory: Negative for cough, shortness of breath, wheezing. 16:55 Abdomen/GI: Positive for abdominal pain, nausea, Negative for vomiting, diarrhea, constipation, abdominal distension, black/tarry stool, rectal bleeding. 16:55 Back: Negative for pain at rest, pain with movement. 16:55 : Negative for urinary symptoms. 16:55 MS/extremity: Negative for paresthesias. 16:55 Skin: Negative for cellulitis, rash. 16:55 Neuro: Positive for headache, Negative for altered mental status, seizure activity, weakness. 16:55 All other systems are negative. Exam: 16:40 ECG was reviewed by the Attending Physician. cp 17:02 Constitutional: The patient appears in no acute distress, alert, awake, cp non-diaphoretic, non-toxic, well developed, well nourished, uncomfortable. 17:02 Head/Face: Normocephalic, atraumatic. cp 17:02 Eyes: Periorbital structures: appear normal, Pupils: equal, round, and reactive to light and accomodation, Extraocular movements: intact throughout, Conjunctiva: normal, no exudate, no injection, Sclera: no appreciated abnormality, Lids and lashes: appear normal, bilaterally. 17:02 ENT: External ear(s): are unremarkable, Ear canal(s): are normal, clear, TM's: bulging, is not appreciated, bilaterally, dullness, bilaterally, erythema, is not appreciated, bilaterally, Nose: is normal, Mouth: Lips: dry, Oral mucosa: dry, Tongue: is normal, Posterior pharynx: Airway: no evidence of obstruction, patent, Tonsils: are normal in appearance, swelling, is not appreciated, erythema, that is mild, exudate, is not appreciated. 17:02 Neck: C-spine: vertebral tenderness, is not appreciated, crepitus, is not appreciated, ROM/movement: is normal, is supple, without pain, no range of motions limitations, no meningismus, no nuchal rigidity. 17:02 Chest/axilla: Inspection: normal, Palpation: is normal, no crepitus, no tenderness. 17:02 Cardiovascular: Rate: tachycardic, Rhythm: regular, Pulses: Pulses are 2+ in right radial artery and left radial artery. Heart sounds: murmur, not appreciated. 17:02 Respiratory: the patient does not display signs of respiratory distress, Respirations: normal, no use of accessory muscles, no retractions, no splinting, no tachypnea, labored breathing, is not present, Breath sounds: are clear throughout, no decreased breath sounds, no stridor, no wheezing. 17:02 Abdomen/GI: Inspection: abdomen appears normal, Bowel sounds: active, all quadrants, Palpation: soft, in all quadrants, moderate abdominal tenderness, in the right lower quadrant and left lower quadrant, rebound tenderness, is not appreciated, involuntary guarding, is not appreciated. 17:02 Back: pain, is absent, ROM is normal, CVA tenderness, is absent. 17:02 Skin: cellulitis, is not appreciated, no rash present. 17:02 Neuro: Orientation: to person, place \T\ time. Mentation: lucid, able to follow commands, Cerebellar function: is grossly normal, Motor: moves all fours, strength is normal, Sensation: no obvious gross deficits. Vital Signs: 16:22 BP 121 / 78; Pulse 119; Resp 16; Temp 97.7; Pulse Ox 100% on R/A; Weight 72.57 kg; la1 Height 5 ft. 5 in. (165.10 cm); 18:08 BP 123 / 96; Pulse 103; Resp 18; Pulse Ox 100% on R/A; sv 20:50 BP 105 / 60; Pulse 96; Resp 18; Pulse Ox 99% on R/A; ao 21:50 BP 108 / 58; Pulse 92; Resp 18; Pulse Ox 99% on R/A; ao 16:22 Body Mass Index 26.63 (72.57 kg, 165.10 cm) la1 MDM: 16:24 Patient medically screened. cp 20:40 Data reviewed: vital signs, nurses notes, lab test result(s), EKG, radiologic studies, cp plain films. 20:40 Test interpretation: by ED physician or midlevel provider: ECG, plain radiologic cp studies. Counseling: I had a detailed discussion with the patient and/or guardian regarding: the historical points, exam findings, and any diagnostic results supporting the discharge/admit diagnosis, lab results, radiology results, to return to the emergency department if symptoms worsen or persist or if there are any questions or concerns that arise at home. Response to treatment: the patient's symptoms have markedly improved after treatment, VSS. Patient observed sleeping and resting comfortably in exam room. 07/26 16:49 Order name: Basic Metabolic Panel cp 07/26 16:49 Order name: CBC with Diff cp 07/26 16:49 Order name: Ckmb cp 07/26 16:49 Order name: CPK cp 07/26 16:49 Order name: LFT's cp 07/26 16:49 Order name: Magnesium cp 07/26 16:49 Order name: Troponin (emerg Dept Use Only); Complete Time: 19:45 cp 07/26 16:49 Order name: Acetaminophen; Complete Time: 19:45 cp 07/26 19:49 Interpretation: Reviewed. cp 07/26 16:49 Order name: ETOH Level; Complete Time: 19:45 cp 07/26 16:49 Order name: Salicylate; Complete Time: 19:45 cp 07/26 16:49 Order name: Urine Drug Screen; Complete Time: 20:38 cp 07/26 20:38 Interpretation: Reviewed. cp 07/26 16:49 Order name: Basic Metabolic Panel; Complete Time: 19:45 EDMS 07/26 19:46 Interpretation: Normal except: CL 116; CO2 20; CA 8.3; BUN 10; CRE 1.20; GFR 50. cp 07/26 16:49 Order name: XRAY Chest (1 view); Complete Time: 18:27 cp 07/26 16:49 Order name: CBC with Automated Diff; Complete Time: 19:45 EDMS 07/26 19:46 Interpretation: Normal except: WBC 6.8; RBC 3.30; HGB 10.0; HCT 29.3; PLT 219. cp 07/26 16:49 Order name: CKMB Creatine Kinase MB; Complete Time: 19:45 EDMS 07/26 16:50 Order name: Creatine Phosphokinase; Complete Time: 19:45 EDMS 07/26 16:50 Order name: Liver (Hepatic) Function; Complete Time: 19:45 EDMS 07/26 19:47 Interpretation: Normal except: SGPT 8; BILIT < 0.2. cp 07/26 16:50 Order name: Magnesium; Complete Time: 19:45 EDMS 07/26 19:58 Order name: Urine Dipstick--Ancillary (enter results); Complete Time: 20:14 em1 07/26 20:38 Interpretation: Normal except: UESTR TRACE. cp 07/26 19:58 Order name: Urine --Ancillary (enter results); Complete Time: 20:14 em1 07/26 16:49 Order name: Urine Test (obtain specimen); Complete Time: 16:56 cp 07/26 16:49 Order name: EKG; Complete Time: 16:50 cp 07/26 16:49 Order name: Cardiac monitoring; Complete Time: 16:55 cp 07/26 16:49 Order name: EKG - Nurse/Tech; Complete Time: 16:55 cp 07/26 16:49 Order name: IV Saline Lock; Complete Time: 17:13 cp 07/26 16:49 Order name: Labs collected and sent; Complete Time: 17:13 cp 07/26 16:49 Order name: O2 Per Protocol; Complete Time: 16:55 cp 07/26 16:49 Order name: O2 Sat Monitoring; Complete Time: 16:56 cp 07/26 16:49 Order name: Urine Dipstick-Ancillary (obtain specimen); Complete Time: 21:22 cp 07/26 16:49 Order name: Seizure Precautions; Complete Time: 17:12 cp EC:40 Rate is 107 beats/min. Rhythm is regular. TX interval is normal. QRS interval is cp normal. QT interval is normal. No ST changes noted. Interpreted by me. Reviewed by me. Administered Medications: 17:00 Drug: Zofran 4 mg Route: IVP; Site: left upper arm; sv 17:30 Follow up: Response: No adverse reaction sv 17:00 Drug: NS 0.9% 1000 ml Route: IV; Rate: 1 bolus; Site: left upper arm; sv 18:15 Follow up: Response: No adverse reaction; IV Status: Completed infusion; IV Intake: sv 1000ml 17:12 Drug: Pepcid 20 mg Route: IVP; Site: left upper arm; sv 17:30 Follow up: Response: No adverse reaction sv 19:28 Drug: NS 0.9% 1000 ml Route: IV; Rate: 1 bolus; Site: left upper arm; ao 22:00 Follow up: IV Status: Completed infusion; IV Intake: 1000ml ao 19:30 Drug: Keppra 500 mg Route: IV; Rate: calculated rate; Site: left upper arm; ao 07/27 05:03 Follow up: IV Status: Completed infusion; IV Intake: 100ml ao 07/26 19:30 Drug: Reglan 10 mg Route: IVP; Site: left upper arm; ao 07/27 05:03 Follow up: Response: No adverse reaction ao 07/26 19:30 Drug: Decadron - Dexamethasone 10 mg Route: IVP; Site: left upper arm; ao 21:00 Follow up: Response: No adverse reaction ao 19:51 Drug: Magnesium Sulfate 2 grams Route: IVPB; Infused Over: 2 hrs; Site: left upper arm; ao 21:00 Follow up: IV Status: Completed infusion; IV Intake: 100ml ao 19:54 Drug: Fioricet - Esgic 325 mg-40 mg-50 mg 1 tab-caps Route: PO; ao 21:00 Follow up: Response: No adverse reaction ao Disposition: 07/26/17 20:40 Discharged to Home. Impression: Epilepsy and recurrent seizures, Hypomagnesemia. - Condition is Stable. - Discharge Instructions: Hypomagnesemia, Seizure, Adult. - Prescriptions for magnesium - take 400 milligram by ORAL route once daily for 3 days; 3 tablet. - Medication Reconciliation Form, Thank You Letter, Antibiotic Education, Prescription Opioid Use form. - Follow up: Shashank Resendiz MD; When: 2 - 3 days; Reason: Recheck today's complaints. - Problem is an ongoing problem. - Symptoms have improved. Addendum: 08/07/2017 08:41 Co-signature as Attending Physician, Rick javed dr Signatures: Dispatcher [employer] EDKenia Duff, RN RN Rick Guaman MD MD [facility] Yomaira Norman, RN RN James Lopes RN RN la1 Hermilo Cochran PA PA cp Ortiz, Alex RN RN ao Corrections: (The following items were deleted from the chart) 07/26 20:01 16:50 PROTIME (+INR)+COAG.LAB.BRZ ordered. EDMS EDMS 20:01 16:50 PTT, ACTIVATED+COAG.LAB.BRZ ordered. EDMS EDMS
--- NOTE | 2017-07-26 20:41 | ER ---
Nurse's Notes [facility] Name: Annmarie Garcia Age: 42 yrs Sex: Female : 1975 Arrival Date: 07/26/2017 Time: 16:16 Bed 6 Private MD: Diagnosis: Epilepsy and recurrent seizures;Hypomagnesemia Presentation: 07/26 16:20 Presenting complaint: Patient states: I was at home and at 1200 today I got real la1 thirsty. Next thing I know I wake up at 1500 laying on the floor. I don't know if I had a seizure or what. Pt reports abd pain and feeling ill. Transition of care: patient was not received from another setting of care. Onset of symptoms was July 26, 2017. Initial Sepsis Screen: Does the patient meet any 2 criteria? HR > 90 bpm. Does the patient have a suspected source of infection? No. Patient's initial sepsis screen is negative. Care prior to arrival: None. 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 - Social history:: Smoking status: Patient/guardian denies using tobacco. Screenin:00 Abuse screen: Denies threats or abuse. Denies injuries from another. Nutritional sv screening: No deficits noted. Tuberculosis screening: No symptoms or risk factors identified. Fall Risk Fall in past 12 months (25 points). No secondary diagnosis (0 pts). IV access (20 points). Ambulatory Aid- None/Bed Rest/Nurse Assist (0 pts). Gait- Normal/Bed Rest/Wheelchair (0 pts) Mental Status- Oriented to own ability (0 pts). Total Watson Fall Scale indicates High Risk Score (45 or more points). Fall prevention measures have been instituted. Side Rails Up X 2 Placed Close to Nursing Station Frequent Obs/Assessments Occuring Family Present and informed to notify staff if the need to leave the bedside As available patient and family educated on Fall Prevention Program and Strategies. Assessment: 17:00 General: Appears in no apparent distress. uncomfortable, Behavior is cooperative, sv drowsy. Pain: Complains of pain in face Pain currently is 5 out of 10 on a pain scale. Is continuous. Neuro: Level of Consciousness is awake, alert, obeys commands, Oriented to person, place, time, situation, Moves all extremities. Cardiovascular: Patient's skin is warm and dry. Pulses are 3+ in right radial artery and left radial artery. Respiratory: Respiratory effort is even, unlabored, Respiratory pattern is regular, symmetrical. GI: Abdomen is flat, non-distended, Abd is soft and non tender X 4 quads. Reports diarrhea, nausea. Derm: Skin is normal. 17:30 Reassessment: mother appears upset while leaving ED. Mother states, "can you let her ss nurse know that she is a hypochondriac, and there is nothing wrong with her!". 18:25 Reassessment: Patient appears in no apparent distress at this time. Patient and/or sv family updated on plan of care and expected duration. Pain level reassessed. Patient is alert, oriented x 3, equal unlabored respirations, skin warm/dry/pink. Family at the bedside. 18:45 Reassessment: Patient appears in no apparent distress at this time. Patient and/or sv family updated on plan of care and expected duration. Pain level reassessed. Patient is alert, oriented x 3, equal unlabored respirations, skin warm/dry/pink. Cailin NOYOLA at bedside to help obtain blood sample via arterial stick. Successful with 23G needle. 19:56 General: Appears in no apparent distress. uncomfortable, Behavior is calm, cooperative. ao Pain: Complains of pain in Migrane headache. Neuro: Level of Consciousness is awake, alert, obeys commands, Oriented to person, place, time, situation, Moves all extremities. Cardiovascular: Patient's skin is warm and dry. Pulses. Respiratory: Respiratory effort is even, unlabored, Respiratory pattern is regular, symmetrical. GI: Abdomen is flat, non-distended, Bowel sounds present X 4 quads. Abd is soft and non tender Reports. : No signs and/or symptoms were reported regarding the genitourinary system. EENT: No signs and/or symptoms were reported regarding the EENT system. Derm: Skin is normal. 20:00 Reassessment: Unable to get more blood. RADHA Rashid was notified and Decided to ao cancel. Lab was call to cancel PT/INR. 21:00 Reassessment: Patient appears in no apparent distress at this time. Patient and/or ao family updated on plan of care and expected duration. Pain level reassessed. Patient is alert, oriented x 3, equal unlabored respirations, skin warm/dry/pink. 21:54 Reassessment: Dc Instructions given to patient and caregiver. patient understand the ao POC and to follow up. Vital Signs: 16:22 BP 121 / 78; Pulse 119; Resp 16; Temp 97.7; Pulse Ox 100% on R/A; Weight 72.57 kg; la1 Height 5 ft. 5 in. (165.10 cm); 18:08 BP 123 / 96; Pulse 103; Resp 18; Pulse Ox 100% on R/A; sv 20:50 BP 105 / 60; Pulse 96; Resp 18; Pulse Ox 99% on R/A; ao 21:50 BP 108 / 58; Pulse 92; Resp 18; Pulse Ox 99% on R/A; ao 16:22 Body Mass Index 26.63 (72.57 kg, 165.10 cm) la1 ED Course: 16:16 Patient arrived in ED. as 16:21 Triage completed. la1 16:22 Arm band placed on right wrist. la1 16:24 Hermilo Cochran PA is PHCP. cp 16:24 Chad Christianson MD is Attending Physician. cp 16:48 Kenia Le, MITCHELL is Primary Nurse. sv 16:55 EKG done, by ED staff, reviewed by Hermilo GARCIA. dh3 17:00 Patient has correct armband on for positive identification. Bed in low position. Call sv light in reach. Side rails up X2. Adult w/ patient. Seizure precautions initiated. Door closed. Warm blanket given. Head of bed elevated. 17:03 Missed attempt(s): 24 gauge in left forearm. Bleeding controlled, band aid applied, sv catheter tip intact. 17:05 Inserted saline lock: 22 gauge in left upper arm, using aseptic technique. Flushed left sv with 5 ml normal saline upper arm. 17:10 X-ray completed. Portable x-ray completed in exam room. Patient tolerated procedure kp1 well. 17:13 XRAY Chest (1 view) In Process Unspecified. EDMS 18:25 Cleaned of incontinence. Linen changed. sv 19:13 Report given to Luis MEDRANO and Rod RN. sv 19:21 Basic Metabolic Panel Sent. sv 19:21 CBC with Diff Sent. sv 19:21 Ckmb Sent. sv 19:21 CPK Sent. sv 19:21 LFT's Sent. sv 19:21 Magnesium Sent. sv 19:26 Primary Nurse role handed off by Kenia Le RN sv 19:29 Notified Nurse Practitioner and/or Physician Rn Clinical Resource of a critical lab result(s), mag fc of 1.4. 19:31 Rod Alexis, MITCHELL is Primary Nurse. ao 20:38 Shashank Resendiz MD is Referral Physician. cp 21:52 No provider procedures requiring assistance completed. IV discontinued, intact, ao bleeding controlled, No redness/swelling at site. Pressure dressing applied. Administered Medications: 17:00 Drug: Zofran 4 mg Route: IVP; Site: left upper arm; sv 17:30 Follow up: Response: No adverse reaction sv 17:00 Drug: NS 0.9% 1000 ml Route: IV; Rate: 1 bolus; Site: left upper arm; sv 18:15 Follow up: Response: No adverse reaction; IV Status: Completed infusion; IV Intake: sv 1000ml 17:12 Drug: Pepcid 20 mg Route: IVP; Site: left upper arm; sv 17:30 Follow up: Response: No adverse reaction sv 19:28 Drug: NS 0.9% 1000 ml Route: IV; Rate: 1 bolus; Site: left upper arm; ao 22:00 Follow up: IV Status: Completed infusion; IV Intake: 1000ml ao 19:30 Drug: Keppra 500 mg Route: IV; Rate: calculated rate; Site: left upper arm; ao 07/27 05:03 Follow up: IV Status: Completed infusion; IV Intake: 100ml ao 07/26 19:30 Drug: Reglan 10 mg Route: IVP; Site: left upper arm; ao 07/27 05:03 Follow up: Response: No adverse reaction ao 07/26 19:30 Drug: Decadron - Dexamethasone 10 mg Route: IVP; Site: left upper arm; ao 21:00 Follow up: Response: No adverse reaction ao 19:51 Drug: Magnesium Sulfate 2 grams Route: IVPB; Infused Over: 2 hrs; Site: left upper arm; ao 21:00 Follow up: IV Status: Completed infusion; IV Intake: 100ml ao 19:54 Drug: Fioricet - Esgic 325 mg-40 mg-50 mg 1 tab-caps Route: PO; ao 21:00 Follow up: Response: No adverse reaction ao Intake: 18:15 IV: 1000ml; Total: 1000ml. sv 21:00 IV: 100ml; Total: 1100ml. ao 22:00 IV: 1000ml; Total: 2100ml. ao 07/27 05:03 IV: 100ml; Total: 2200ml. ao Outcome: 07/26 20:40 Discharge ordered by MD. cp 21:53 Discharged to home ambulatory. ao 21:53 Condition: stable 21:53 Discharge instructions given to patient, Instructed on discharge instructions, follow up and referral plans. Demonstrated understanding of instructions, follow-up care, medications, Prescriptions given X 1. 21:58 Patient left the ED. ao Signatures: Dispatcher [employer] Kenia Glover, RN Yomaira Ellis, RN RN Elif Medrano Shelby, RN RN James Hdez RN RN la1 Hermilo Cochran PA PA cp Ortiz, Alex RN RN Kelly Montilla 1 Kim Pardo 3
[2017-07-26 22:15] VITALS: TEMP 97.7
[2017-07-26 22:17] VITALS: O2SAT 99
[2017-07-26 22:18] VITALS: BP 108/58
--- NOTE | 2017-07-27 06:13 | EKG ---
Test Date: 2017-07-26 Test Time: 16:33:48 Funeral Home Manager: FITO MEASUREMENT RESULTS: Intervals: Rate: 107 NE: 168 QRSD: 94 QT: 340 QTc: 453 [place]: P: 62 NE: 168 QRS: 62 T: 66 INTERPRETIVE STATEMENTS: Sinus tachycardia Otherwise normal ECG Compared to ECG 07/22/2017 17:50:44 T-wave abnormality no longer present Electronically Signed On 07-27-17 06:12:42 CDT by Anibal Miller
== END 2017-07-26 21:58 | disposition home or self-care (01) ==
LOC: ER 16:13
DX: G40.802 Other epilepsy, not intractable, without status epilepticus (principal); E83.42 Hypomagnesemia; R51 Headache; Z88.1 Allergy status to other antibiotic agents; Z88.5 Allergy status to narcotic agent
CPT/HCPCS: 71045; 80048; 80076; 80307; 80320; 80329; 81003; 81025; 82550; 82553; 83735; 84484; 85025; 93005; 96361; 96365; 96366; 96375; 99284; J1100; J1953; J2405; J2765; J3475; J7030

== ENCOUNTER 2017-07-27 03:17 | Emergency (ER) | payer OTHER ==
[2017-07-27] MEDS ORDERED: NA CHLORIDE 0.9% 1,000 ML ONE (03:59)
[2017-07-27] MEDS ORDERED: DIPHENHYDRAMINE 50 MG/ML VIAL ONE (03:59)
[2017-07-27 04:04] LABS: Absolute Lymphocytes (CBC) 0.9 K/uL (0.7-4.9); Absolute Monocytes 0.1 K/uL (0.1-1.3); Absolute Neutrophil 7.5 K/uL (1.8-8.0); Basophils % 0.3 % (0-1.3); Eosinophils % 0.1 % (0-4.4); Hematocrit 33.3 % (36.0-45.0); Lymphocytes % 10.3 % (15.3-44.8); MCH 29.4 pg (27.0-35.0); MCV 90.5 fL (80-100); MPV 8.3 fL (7.6-11.3); Monocytes % 1.6 % (3.3-12.3); RBC Red Blood Cell Count 3.68 M/uL (3.86-4.86)
[2017-07-27 04:29] LABS: ALT/SGPT 13 IU/L (10-60); AST/SGOT 19 IU/L (10-42); Albumin 3.1 g/dL (3.2-5.5); Alkaline Phosphatase 81 IU/L (42-121); Amylase Level 36 U/L (28-100); BUN Blood Urea Nitrogen 13 mg/dL (6-20); Bicarbonate 18 mEq/L (21-31); Bilirubin Direct < 0.1 mg/dL (0-0.2); Bilirubin Total < 0.2 mg/dL (0.3-1.2); Glucose Level 208 mg/dL (65-120); Lipase 13 U/L (22-51); Potassium 3.7 mEq/L (3.6-5.0); Protein, Total 7.2 g/dL (6.0-8.3); Sodium Level 138 mEq/L (135-145)
[2017-07-27 05:06] LABS: Blood Morphology Comment NOT SEEN (NOT SEEN); Platelet Estimate ADEQ; Urine White Blood Cell Casts OK
[2017-07-27 05:38] LABS: Urine Bacteria 20-50 /HPF (<20); Urine Culture Reflex Order NOT NEEDED
[2017-07-27 06:10] LABS: Urine Blood 3+ (NEG); Urine Glucose NEGATIVE (NEG); Urine Protein NEGATIVE (NEG); Urine Specific Gravity <1.005 (1.005-1.030)
[2017-07-27] MEDS ORDERED: LORAZEPAM 1 MG TABLET ONE (06:27)
--- NOTE | 2017-07-27 06:52 | ER ---
Nurse's Notes [facility] Name: Annmarie Garcia Age: 42 yrs Sex: Female : 1975 Arrival Date: 07/27/2017 Time: 03:18 Bed 8 Private MD: Diagnosis: Unspecified abdominal pain Presentation: 07/27 03:19 Presenting complaint: EMS states: "Patient was in the ED few hours ago with the ao complain of abdominal pain. Patient was discharge home and started having this lower right abdominal pain again. Patient also complains of being lethargic.". Transition of care: patient was not received from another setting of care. Onset of symptoms is unknown. Initial Sepsis Screen: Does the patient meet any 2 criteria? No. Patient's initial sepsis screen is negative. Does the patient have a suspected source of infection? No. Patient's initial sepsis screen is negative. Care prior to arrival: None. 03:19 Method Of Arrival: EMS: [facility] ao 03:19 Acuity: SELVIN 3 ao Triage Assessment: 03:28 General: Appears in no apparent distress. uncomfortable, Behavior is drowsy. Pain: ao Complains of pain in abdomen. EENT: No signs and/or symptoms were reported regarding the EENT system. Neuro: Level of Consciousness is lethargic, Oriented to person. Cardiovascular: Capillary refill < 3 seconds Patient's skin is warm and dry. Respiratory: Airway is patent Respiratory effort is even, unlabored, Respiratory pattern is regular, symmetrical. GI: Abdomen is non-distended. : No signs and/or symptoms were reported regarding the genitourinary system. Derm: No signs and/or symptoms reported regarding the dermatologic system. Musculoskeletal: No signs and/or symptoms reported regarding the musculoskeletal system. 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 - Social history:: Smoking status: unknown. - Family history:: not pertinent. Screenin:30 Abuse screen: Denies threats or abuse. Denies injuries from another. Nutritional ao screening: No deficits noted. Tuberculosis screening: No symptoms or risk factors identified. Fall Risk Fall in past 12 months (25 points). Assessment: 03:31 General: See triage assessment. GI: Bowel sounds present X 4 quads. Abd is soft and non ao tender. 03:40 Reassessment: Seizure precautions had been applied since patient has history of ao seizures. 04:22 Reassessment: Patient appears in no apparent distress at this time. Patient and/or ao family updated on plan of care and expected duration. Pain level reassessed. Waiting on labs. Patient VS stable. 05:42 Reassessment: Patient appears in no apparent distress at this time. Patient and/or ao family updated on plan of care and expected duration. Pain level reassessed. Patient requested a bedpan. Patient voided. 06:31 Reassessment: Patient appears in no apparent distress at this time. Patient and/or ao family updated on plan of care and expected duration. Pain level reassessed. Patient to be discharge. Dr Simmons has spoken to patient. 07:10 Reassessment: Patient appears in no apparent distress at this time. Patient and/or sv family updated on plan of care and expected duration. Pain level reassessed. Pt called her boyfriend to come take her home. 07:17 Reassessment: Pt noted to be ambulating around the room looking for her shirt. No sv difficulties noted with ambulation. Vital Signs: 03:21 BP 131 / 73; Pulse 136; Resp 19; Temp 99.0(O); Pulse Ox 97% on R/A; Weight 68.04 kg ao (R); Height 5 ft. 4 in. (162.56 cm) (R); Pain 5/10; 04:22 BP 121 / 84; Pulse 127; Resp 18; Pulse Ox 99% on R/A; ao 05:42 BP 125 / 82; Pulse 115; Resp 15; Pulse Ox 99% on R/A; ao 06:31 BP 132 / 74; Pulse 116; Resp 14; Pulse Ox 99% on R/A; ao 07:10 BP 126 / 82; Pulse 110; Resp 18; Pulse Ox 99% ; sv 03:21 Body Mass Index 25.75 (68.04 kg, 162.56 cm) ao ED Course: 03:18 Patient arrived in ED. ao 03:18 Abby Simmons MD is Attending Physician. ma2 03:21 Triage completed. ao 03:24 Arm band placed on right wrist. Patient placed in an exam room, on a stretcher, on ao pulse oximetry, Patient notified of wait time. 03:31 Patient has correct armband on for positive identification. Pulse ox on. NIBP on. ao 03:35 Rod Alexis RN is Primary Nurse. ao 04:04 Inserted saline lock: 22 gauge in left ,using aseptic technique. Chest area, Flushed ao with 10 ml NS. Blood collected Blood collected. 04:10 Radiology exam delayed due to lab results not completed at this time. nurse placing ng cw1 tube to admin PO contrast - to call when finished. 05:16 CT Abd/Pelvis - W/Contrast In Process Unspecified. EDMS 07:02 Report received from Rod MEDRANO. sv 07:11 No provider procedures requiring assistance completed. IV discontinued, intact, sv bleeding controlled, No redness/swelling at site. Pressure dressing applied. Administered Medications: 04:03 Drug: NS 0.9% 1000 ml Route: IV; Rate: 1 bolus; Site: Other; ao 06:29 Follow up: IV Status: Completed infusion; IV Intake: 1000ml ao 04:03 Drug: Benadryl 50 mg Route: IVP; Site: Other; ao 06:28 Follow up: Response: No adverse reaction ao 06:39 Drug: Ativan 1 mg Route: PO; ao 06:59 Follow up: Response: No adverse reaction ao Intake: 06:29 IV: 1000ml; Total: 1000ml. ao Outcome: 06:52 Discharge ordered by . ma2 07:11 Discharged to home via wheelchair, with family. sv 07:11 Condition: stable 07:11 Discharge instructions given to patient, Instructed on discharge instructions, follow up and referral plans. Demonstrated understanding of instructions, follow-up care. 07:50 Patient left the ED. sv Signatures: Dispatcher [facility] Kenia Glover RN RN Maris Richardson cw1 Rod Alexis RN RN ao Abby Simmons MD MD ma2
--- NOTE | 2017-07-27 06:53 | EDPHYS ---
Physician Documentation [facility] Name: Annmarie Garcia Age: 42 yrs Sex: Female : 1975 Arrival Date: 07/27/2017 Time: 03:18 Bed 8 Private MD: ED Physician Abby Simmons HPI: 07/27 03:35 This 42 yrs old Female presents to ER via EMS with complaints of Abdominal ma2 Pain. 03:35 The patient presents with abdominal pain. Onset: The symptoms/episode began/occurred ma2 gradually, 2 day(s) ago. Associated signs and symptoms: Pertinent negatives: nausea, vomiting, and diarrhea, nausea and vomiting, vaginal discharge, vomiting. Severity of pain: At its worst the pain was moderate. was here with abd discharged home 2 hrs ago now back with abd pain bib EMS she is not answering questions whispering . 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 - Social history:: Smoking status: unknown. - Family history:: not pertinent. ROS: 03:35 Unable to obtain ROS due to patient being uncooperative. ma2 06:52 Constitutional: Negative for fever, chills, and weight loss. ma2 Exam: 03:35 Constitutional: This is a well developed, well nourished patient who is awake, alert, ma2 and in no acute distress. Head/Face: Normocephalic, atraumatic. 03:35 Abdomen/GI: Soft, non-tender, with normal bowel sounds. No distension or tympany. No guarding or rebound. No evidence of tenderness throughout. Back: No spinal tenderness. No costovertebral tenderness. Full range of motion. MS/ Extremity: Pulses equal, no cyanosis. Neurovascular intact. Full, normal range of motion. Neuro: Awake and alert, GCS 15, oriented to person, place, time, and situation. Cranial nerves II-XII grossly intact. Motor strength 5/5 in all extremities. Sensory grossly intact. Cerebellar exam normal. Normal gait. 03:35 Constitutional: The patient appears in no acute distress, alert. 03:35 Cardiovascular: Rate: tachycardic. Vital Signs: 03:21 BP 131 / 73; Pulse 136; Resp 19; Temp 99.0(O); Pulse Ox 97% on R/A; Weight 68.04 kg ao (R); Height 5 ft. 4 in. (162.56 cm) (R); Pain 5/10; 04:22 BP 121 / 84; Pulse 127; Resp 18; Pulse Ox 99% on R/A; ao 05:42 BP 125 / 82; Pulse 115; Resp 15; Pulse Ox 99% on R/A; ao 06:31 BP 132 / 74; Pulse 116; Resp 14; Pulse Ox 99% on R/A; ao 07:10 BP 126 / 82; Pulse 110; Resp 18; Pulse Ox 99% ; sv 03:21 Body Mass Index 25.75 (68.04 kg, 162.56 cm) ao MDM: 03:18 Patient medically screened. ma2 03:35 Differential diagnosis: bowel obstruction, diverticulitis, gastritis, gastroesophageal ma2 reflux disease, Hepatitis. 03:42 Counseling: I had a detailed discussion with the patient and/or guardian regarding: the ma2 historical points, exam findings, and any diagnostic results supporting the discharge/admit diagnosis, the presence of at least one elevated blood pressure reading (>120/80) during this emergency department visit, the need for outpatient follow up. 03:42 Data reviewed:. Data reviewed:. ma2 06:27 ED course: patient now is back to baseline talking and AOx4 she state that she was in a ma2 lot of abdominal pain and was stressed out at home that's why she was not talking earlier, her labs are wnl , CT a/p wnl, her tachycardia improved with IVF and ativan. from 130 to 90, she has no symptoms right now and wants to go home . 07/27 03:34 Order name: Amylase, Serum; Complete Time: :35 ma2 07/27 03:34 Order name: Basic Metabolic Panel; Complete Time: 04:35 ma2 07/27 03:34 Order name: CBC with Diff; Complete Time: 06:46 ma2 07/27 03:34 Order name: Hepatic Function; Complete Time: 04:35 ma2 07/27 03:34 Order name: Lipase; Complete Time: 04:35 ma2 07/27 03:34 Order name: Urine Microscopic Only; Complete Time: 06:46 ma2 07/27 03:34 Order name: IV Saline Lock; Complete Time: 04:04 ma2 07/27 03:39 Order name: CT Abd/Pelvis - W/Contrast ma2 07/27 05:06 Order name: CBC Smear Scan; Complete Time: 06:46 EDMS 07/27 06:07 Order name: Urine Dipstick--Ancillary (enter results); Complete Time: 06:46 [facility] 07/27 03:34 Order name: Labs collected and sent; Complete Time: 04:04 ma2 07/27 03:34 Order name: Urine Dipstick-Ancillary (obtain specimen); Complete Time: 05:06 ma2 Administered Medications: 04:03 Drug: NS 0.9% 1000 ml Route: IV; Rate: 1 bolus; Site: Other; ao 06:29 Follow up: IV Status: Completed infusion; IV Intake: 1000ml ao 04:03 Drug: Benadryl 50 mg Route: IVP; Site: Other; ao 06:28 Follow up: Response: No adverse reaction ao 06:39 Drug: Ativan 1 mg Route: PO; ao 06:59 Follow up: Response: No adverse reaction ao Disposition: 07/27/17 06:52 Discharged to Home. Impression: Unspecified abdominal pain. - Condition is Stable. - Medication Reconciliation Form, Thank You Letter, Antibiotic Education, Prescription Opioid Use form. - Follow up: Private Physician; When: Tomorrow; Reason: Continuance of care. - Problem is new. - Symptoms are unchanged. Signatures: Dispatcher [employer] Kenia Glover RN RN sv Ortiz, Alex, RN RN ao Alzahri, Mohammad, MD MD ma2 Corrections: (The following items were deleted from the chart) 03:44 03:42 Data reviewed: vital signs, nurses notes, discussed with her pcp who advised to ma2 go up on edarbi to 40 bid , ma2 03:54 03:34 Creatinine for Radiology+C.LAB.BRZ ordered. EDMS EDMS
[2017-07-27 08:16] VITALS: TEMP 99
[2017-07-27 08:17] VITALS: O2SAT 99
[2017-07-27 08:21] VITALS: BP 126/82
--- NOTE | 2017-07-27 11:30 | RAD REPORT ---
EXAM DESCRIPTION: CTAbdomen Pelvis W Contrast - 07/27/2017 6:55 am CLINICAL HISTORY: Abdominal pain. COMPARISON: 07/20/2017 TECHNIQUE: Biphasic CT imaging of the abdomen and pelvis was performed with 100 ml non-ionic IV cont rast. All CT scans are performed using dose optimization technique as appropriate and may include automated exposure control or mA/KV adjustment according to patient size. FINDINGS: The lung bases are clear. The liver, spleen, pancreas, adrenal glands and kidneys are within normal limits. No bowel obstruction, free air, free fluid or abscess. Significant improvement in the degree of colon ic distention since prior study. The appendix is normal. No evidence of significant lymphadenopathy. No suspicious bony findings. IMPRESSION: No acute intra-abdominal or pelvic finding. Significant improvement in colonic distention since the prior study.
== END 2017-07-27 07:50 | disposition home or self-care (01) ==
LOC: ER 03:17
DX: R10.9 Unspecified abdominal pain (principal); I10 Essential (primary) hypertension; E03.9 Hypothyroidism, unspecified; F41.9 Anxiety disorder, unspecified; G40.909 Epilepsy, unspecified, not intractable, without status epilepticus; Z88.1 Allergy status to other antibiotic agents; Z88.5 Allergy status to narcotic agent
CPT/HCPCS: 36415; 74177; 80048; 80076; 81003; 81015; 82150; 83690; 85025; 96361; 96374; 99284; J7030; Q9967

== ENCOUNTER 2017-07-28 08:43 | Emergency (ER) | payer OTHER ==
--- NOTE | 2017-07-28 11:04 | ER ---
Nurse's Notes [facility] Name: Annmarie Garcia Age: 42 yrs Sex: Female : 1975 Arrival Date: 07/28/2017 Time: 08:45 Bed Waiting Private MD: Yamileth Roth Diagnosis: Presentation: 07/28 09:11 Presenting complaint: Patient states: migraine started about 3 this morning, has hx of iw migraines, takes Fioricet, no relief, rates pain 7/10 behind eyes. Transition of care: patient was not received from another setting of care. Onset of symptoms was July 28, 2017. Initial Sepsis Screen: Does the patient meet any 2 criteria? No. Patient's initial sepsis screen is negative. Does the patient have a suspected source of infection? No. Patient's initial sepsis screen is negative. Care prior to arrival: Medication(s) given:. 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 - Social history:: Smoking status: Patient/guardian denies using tobacco. Assessment: 10:58 Reassessment: pt not in lobby at this time. iw Vital Signs: 09:12 BP 133 / 86; Pulse 110; Resp 18; Temp 98.6; Pulse Ox 98% on R/A; Weight 72.57 kg; iw Height 5 ft. 5 in. (165.10 cm); Pain 7/10; 09:12 Body Mass Index 26.63 (72.57 kg, 165.10 cm) iw ED Course: 08:45 Patient arrived in ED. rg4 08:45 Yamileth Roth MD is Private Physician. rg4 09:12 Triage completed. iw 09:12 Arm band placed on. iw 11:04 Hyun Hale, RN is Primary Nurse. iw Administered Medications: No medications were administered Outcome: 11:03 Eloped from waiting room, before seeing physician Time discovered patient gone: July at 11:00 11:04 Patient left the ED. iw Signatures: Hyun Hale, RN RN Marlen Alaniz rg4
[2017-07-28 11:09] VITALS: BP 133/86; TEMP 98.6; O2SAT 98
== END 2017-07-28 11:04 | disposition left against medical advice (07) ==
LOC: ER 08:43
DX: Z02.9 Encounter for administrative examinations, unspecified (principal)
CPT/HCPCS: 99281

== ENCOUNTER 2017-08-13 20:26 | Inpatient (IN) | payer OTHER ==
[2017-08-13 21:45] LABS: Bicarbonate 26 mEq/L (21-31); Glucose Level 94 mg/dL (65-120); Potassium 3.3 mEq/L (3.6-5.0); Sodium Level 142 mEq/L (135-145)
[2017-08-13 21:48] LABS: Absolute Lymphocytes (CBC) 2.4 K/uL (0.7-4.9); Absolute Monocytes 0.4 K/uL (0.1-1.3); Eosinophils % 1.2 % (0-4.4); Hematocrit 31.7 % (36.0-45.0); MCH 29.8 pg (27.0-35.0); MCV 89.2 fL (80-100); MPV 8.1 fL (7.6-11.3); Monocytes % 6.2 % (3.3-12.3); RBC Red Blood Cell Count 3.56 M/uL (3.86-4.86)
[2017-08-13 21:51] LABS: ALT/SGPT 11 IU/L (10-60); AST/SGOT 16 IU/L (10-42); Albumin 3.9 g/dL (3.2-5.5); Alkaline Phosphatase 72 IU/L (42-121); BUN Blood Urea Nitrogen 8 mg/dL (6-20); Bilirubin Direct < 0.1 mg/dL (0-0.2); Bilirubin Total 0.4 mg/dL (0.3-1.2)
[2017-08-13 21:56] LABS: Alcohol Serum/Plasma < 10 mg/dl; Salicylates Level < 4.0 mg/dl (<30)
[2017-08-13] MEDS ORDERED: KETOROLAC 30 MG/ML INJ ONE (23:27)
[2017-08-13 23:45] LABS: Barbiturates POSITIVE; Benzodiazepines NEGATIVE; Cocaine NEGATIVE; METHAMPHETAM NEGATIVE; Opiates NEGATIVE; Phencyclidine NEGATIVE; THC Cannibis NEGATIVE
[2017-08-13 23:59] LABS: Urine Blood NEGATIVE (NEG); Urine Glucose NEGATIVE (NEG); Urine Protein NEGATIVE (NEG); Urine Specific Gravity 1.015 (1.005-1.030); Urine pH 6.5 (5.0-7.0)
[2017-08-14] MEDS ORDERED: LORazepam 2 MG/ML VIAL ONE ×3 (00:02→02:44)
[2017-08-14] MEDS ORDERED: FOSPHENYTOIN PE 100 MG/2 ML VIAL ONE (00:10)
[2017-08-14] MEDS ORDERED: MIDAZOLAM HCL 2 MG/2 ML INJ ONE (00:10)
[2017-08-14] MEDS ORDERED: NA CHLORIDE 0.9% 100 ML IV ONE (00:11)
[2017-08-14] MEDS ORDERED: ONDANSETRON 4 MG/2 ML VIAL ONE (00:15)
[2017-08-14] MEDS ORDERED: FOSPHENYTOIN PE 500 MG/10 ML VIAL ONE (00:15)
--- NOTE | 2017-08-14 02:52 | EDPHYS ---
Physician Documentation [facility] Name: Annmarie aGrcia Age: 42 yrs Sex: Female : 1975 Arrival Date: 08/13/2017 Time: 20:28 Bed 17 Private MD: ED Physician Kaushik Crain HPI: 08/13 22:22 This 42 yrs old Female presents to ER via Ambulatory with complaints of jr8 Suicidal Ideation. 22:22 The patient presents to the emergency department with depression, suicide ideation, but jr8 the patient has no formulated plan. Onset: The symptoms/episode began/occurred gradually, for the past several months . Associated signs and symptoms: The patient has no apparent associated signs or symptoms. Severity of symptoms: At their worst the symptoms were moderate in the emergency department the symptoms are unchanged. The patient has not experienced similar symptoms in the past. The patient has not recently seen a physician. Patient with chronic pain. Stated that she no longer wants to be alive. Denies specific plan as to how she wants to kill herself. Contacted her mom to bring her to hospital because of the suicidal ideations . 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 aj1 Historical: - Allergies: 20:49 Cipro; aj1 20:49 OxyContin; aj1 - Home Meds: 20:49 Flexeril 10 mg Oral tab 1 tab 2 times per day [Active]; gabapentin 800 mg Oral tab 1 aj1 tab 3 times per day [Active]; Keppra 500 mg Oral tab 1 tab daily [Active]; Tegretol 200 mg Oral tab 1 tab bedtime [Active]; Tyler Oral [Active]; Fioricet Oral [Active]; Nortriptyline Oral [Active]; - PMHx: 20:49 Anxiety; Asthma; decreased kidney fx; Hypertension; Hypothyroidism; Migraines; R arm aj1 compartment syndrome; R leg compartment syndrome; Seizures; suicidal ideation; - PSHx: 20:49 right leg; aj1 - Immunization history:: Adult Immunizations up to date. - Social history:: Smoking status: Patient/guardian denies using tobacco, Patient/guardian denies using alcohol, street drugs. ROS: 22:22 Eyes: Negative for injury, pain, redness, and discharge, ENT: Negative for injury, jr8 pain, and discharge, Neck: Negative for injury, pain, and swelling, Cardiovascular: Negative for chest pain, palpitations, and edema, Respiratory: Negative for shortness of breath, cough, wheezing, and pleuritic chest pain, Abdomen/GI: Negative for abdominal pain, nausea, vomiting, diarrhea, and constipation, Back: Negative for injury and pain, MS/Extremity: Negative for injury and deformity, Skin: Negative for injury, rash, and discoloration, Neuro: Negative for headache, weakness, numbness, tingling, and seizure. 22:22 Psych: Positive for depression, suicidal ideation. Exam: 22:22 Head/Face: Normocephalic, atraumatic. Eyes: Pupils equal round and reactive to light, jr8 extra-ocular motions intact. Lids and lashes normal. Conjunctiva and sclera are non-icteric and not injected. Cornea within normal limits. Periorbital areas with no swelling, redness, or edema. ENT: Nares patent. No nasal discharge, no septal abnormalities noted. Tympanic membranes are normal and external auditory canals are clear. Oropharynx with no redness, swelling, or masses, exudates, or evidence of obstruction, uvula midline. Mucous membranes moist. Neck: Trachea midline, no thyromegaly or masses palpated, and no cervical lymphadenopathy. Supple, full range of motion without nuchal rigidity, or vertebral point tenderness. No Meningismus. Cardiovascular: Regular rate and rhythm with a normal S1 and S2. No gallops, murmurs, or rubs. Normal PMI, no JVD. No pulse deficits. Respiratory: Lungs have equal breath sounds bilaterally, clear to auscultation and percussion. No rales, rhonchi or wheezes noted. No increased work of breathing, no retractions or nasal flaring. Abdomen/GI: Soft, non-tender, with normal bowel sounds. No distension or tympany. No guarding or rebound. No evidence of tenderness throughout. Back: No spinal tenderness. No costovertebral tenderness. Full range of motion. Skin: Warm, dry with normal turgor. Normal color with no rashes, no lesions, and no evidence of cellulitis. MS/ Extremity: Pulses equal, no cyanosis. Neurovascular intact. Full, normal range of motion. Neuro: Awake and alert, GCS 15, oriented to person, place, time, and situation. Cranial nerves II-XII grossly intact. Motor strength 5/5 in all extremities. Sensory grossly intact. Cerebellar exam normal. Normal gait. 22:22 Psych: Behavior/mood is cooperative, suicidal, depressed, Affect is calm, Oriented to person, place, time, Patient has no thoughts/intents to harm self or others. Judgement / Insight is normal. Memory is normal. Delusions/hallucinations are not present. Vital Signs: 20:49 BP 113 / 84; Pulse 113; Resp 18; Temp 98.9(O); Pulse Ox 99% on R/A; Weight 72.57 kg aj1 (R); Height 5 ft. 5 in. (165.10 cm) (R); Pain /; 08/14 00:14 BP 114 / 75; Pulse 108; Resp 20; Pulse Ox 99% on 2 lpm NC; ea 00:23 BP 121 / 96; Pulse 118; Resp 20 S; Pulse Ox 100% on R/A; ea 01:15 BP 108 / 61; Pulse 102; Resp 18; Pulse Ox 100% on R/A; ea 04:15 BP 94 / 60; Pulse 83; Resp 16; Pulse Ox 97% on R/A; ea 05:10 BP 94 / 61; Pulse 82; Resp 16; Pulse Ox 96% on R/A; oe 05:48 BP 107 / 65; Pulse 82; Resp 18 S; Temp 98(A); Pulse Ox 99% on R/A; ea 06:30 BP 106 / 70; Pulse 90; Resp 18; Pulse Ox 98% on R/A; ea 07:10 BP 114 / 83; Pulse 80; Resp 17; Pulse Ox 99% ; rb1 08/13 20:49 Body Mass Index 26.63 (72.57 kg, 165.10 cm) aj1 04:15 Provider notified of BP, order obtained, IV fluids administered, pt tolerating well. ea MDM: 08/13 20:32 Patient medically screened. jr8 08/14 02:47 Data reviewed: vital signs, nurses notes, lab test result(s), EKG, and as a result, I [facility] will admit patient. Data interpreted: Pulse oximetry: on room air is 100 %. Interpretation: normal. Counseling: I had a detailed discussion with the patient and/or guardian regarding: the historical points, exam findings, and any diagnostic results supporting the discharge/admit diagnosis, lab results, the need for further work-up and treatment in the hospital. Physician consultation: Abby Clark MD was called at 02:49, was contacted at 02:49, regarding admission, to the ICU, consult, patient's condition. 08/13 20:44 Order name: Acetaminophen; Complete Time: :08/13 20:44 Order name: Basic Metabolic Panel; Complete Time: :08/13 20:44 Order name: CBC with Diff; Complete Time: 08/13 20:44 Order name: ETOH Level; Complete Time: :08/13 20:44 Order name: Hepatic Function; Complete Time: :08/13 20:44 Order name: Salicylate; Complete Time: :08/13 20:44 Order name: Urine Drug Screen; Complete Time: 00:37 08/13 23:29 Order name: Urine Dipstick--Ancillary (enter results); Complete Time: 00:37 08/13 23:29 Order name: Urine --Ancillary (enter results); Complete Time: 00:37 08/13 20:44 Order name: IV Saline Lock; Complete Time: 21:16 08/13 20:44 Order name: Labs collected and sent; Complete Time: :08/13 20:44 Order name: Urine Dipstick-Ancillary (obtain specimen); Complete Time: 23:26 jr8 Administered Medications: 08/13 23:32 Drug: TORadol 30 mg {Note: left EJ.} Route: IVP; Site: Other; ea 08/14 03:38 Follow up: Response: No adverse reaction ea 00:00 Drug: Ativan 2 mg {Note: left EJ.} Route: IVP; Site: Other; ea 03:39 Follow up: Response: No adverse reaction; Marked relief of symptoms ea 00:15 Drug: Versed 2 mg {Note: left EJ administered by provider.} Route: IVP; Site: Other; ea 03:39 Follow up: Response: No adverse reaction; Marked relief of symptoms ea 00:23 Drug: CEREbyx 1 grams {Note: Left EJ .} Route: IVPB; Site: Other; ea 01:00 Follow up: Response: No adverse reaction; IV Status: Completed infusion; IV Intake: ea 100ml 00:28 Drug: Ativan 4 mg {Note: left EJ.} Route: IVP; Site: Other; ea 00:38 Follow up: Response: No adverse reaction; Marked relief of symptoms ea 02:45 Drug: Ativan 2 mg Route: IVP; Site: Other; ak1 03:38 Follow up: Response: No adverse reaction; Marked relief of symptoms ea 04:14 Drug: NS 0.9% 500 ml {Note: left EJ.} Route: IV; Rate: bolus; Site: Other; ea 04:58 Follow up: Response: No adverse reaction; IV Status: Completed infusion; IV Intake: ea 500ml Disposition: 19:34 Co-signature as Attending Physician, Kaushik Crain MD. rn Disposition: 08/14/17 02:51 Hospitalization ordered by Abby Clark for Observation. Preliminary diagnosis are Suicidal ideations, Epilepsy and recurrent seizures. - Bed requested for Intensive Care Unit. - Status is Observation. rb1 - Condition is Fair. - Problem is new. - Symptoms have improved. UTI on Admission? No Signatures: Dispatcher [employer] [facility] Lisa Terrazas RN RN aj1 Nancy Dykes RN Kaushik Tolentino MD MD rn Roszak, Josh, PA PA jr8 Danii Elizalde RN RN ak1 Michelle Regan, RN RN rb1 Naima Pickard RN RN ea Corrections: (The following items were deleted from the chart) 08/13 22:49 20:45 PROTIME (+INR)+COAG.LAB.BRZ ordered. [facility] 08/14 04:03 02:51 Hospitalization Ordered by Abby Clark MD for Observation. Preliminary mw diagnosis is Suicidal ideations; Epilepsy and recurrent seizures. Bed requested for Intensive Care Unit. Status is Observation. Condition is Fair. Problem is new. Symptoms have improved. UTI on Admission? No. jr8 05:20 04:03 08/14/2017 02:51 Hospitalization Ordered by Abby Clark MD for Observation. frank Preliminary diagnosis is Suicidal ideations; Epilepsy and recurrent seizures. Bed requested for [facility] ER HOLD. Status is Observation. Condition is Fair. Problem is new. Symptoms have improved. UTI on Admission? No. mw 08:22 05:20 08/14/2017 02:51 Hospitalization Ordered by Abby Clark MD for Observation. rb1 Preliminary diagnosis is Suicidal ideations; Epilepsy and recurrent seizures. Bed requested for Intensive Care Unit. Status is Observation. Condition is Fair. Problem is new. Symptoms have improved. UTI on Admission? No. mw
--- NOTE | 2017-08-14 02:52 | ER ---
Nurse's Notes [facility] Name: Annmarie Garcia Age: 42 yrs Sex: Female : 1975 Arrival Date: 08/13/2017 Time: 20:28 Bed 17 Private MD: Diagnosis: Suicidal ideations;Epilepsy and recurrent seizures Presentation: 08/13 20:44 Presenting complaint: Patient states: She has been thinking about killing herself for aj1 the past 2 days. States that she is unsure as to why she has started feeling this way, denies having a plan, but states that she has attempted suicide multiple times in the past. States her last attempt was Apr 2016 when she attempted to OD on Tylenol. Transition of care: patient was not received from another setting of care. Onset of symptoms was August 11, 2017. Initial Sepsis Screen: Does the patient meet any 2 criteria? No. Patient's initial sepsis screen is negative. Does the patient have a suspected source of infection? No. Patient's initial sepsis screen is negative. Care prior to arrival: None. 20:44 Method Of Arrival: Ambulatory aj1 20:44 Acuity: SELVIN 2 aj1 Triage Assessment: 20:49 General: Appears in no apparent distress. Behavior is cooperative. Pain: Complains of aj1 pain in right leg. 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 aj1 Historical: - Allergies: 20:49 Cipro; aj1 20:49 OxyContin; aj1 - Home Meds: 20:49 Flexeril 10 mg Oral tab 1 tab 2 times per day [Active]; gabapentin 800 mg Oral tab 1 aj1 tab 3 times per day [Active]; Keppra 500 mg Oral tab 1 tab daily [Active]; Tegretol 200 mg Oral tab 1 tab bedtime [Active]; Williamson Oral [Active]; Fioricet Oral [Active]; Nortriptyline Oral [Active]; - PMHx: 20:49 Anxiety; Asthma; decreased kidney fx; Hypertension; Hypothyroidism; Migraines; R arm aj1 compartment syndrome; R leg compartment syndrome; Seizures; suicidal ideation; - PSHx: 20:49 right leg; aj1 - Immunization history:: Adult Immunizations up to date. - Social history:: Smoking status: Patient/guardian denies using tobacco, Patient/guardian denies using alcohol, street drugs. Screenin:54 Abuse screen: Denies threats or abuse. Denies injuries from another. Nutritional aj1 screening: No deficits noted. Tuberculosis screening: No symptoms or risk factors identified. 08/14 04:17 Fall Risk Secondary diagnosis (15 points) seizures, IV access (20 points). ea Assessment: 08/13 20:54 General: Appears in no apparent distress. comfortable, Behavior is cooperative, aj1 restless. Pain: Complains of pain in right leg Pain does not radiate. Pain currently is 10 out of 10 on a pain scale. Quality of pain is described as aching, throbbing, Is continuous, Alleviated by nothing. Aggravated by nothing. Neuro: Level of Consciousness is awake, alert, obeys commands, Oriented to person, place, time, situation, Speech is normal, Facial symmetry appears normal. Cardiovascular: Patient's skin is warm and dry. Respiratory: Airway is patent Respiratory effort is even, unlabored, Respiratory pattern is regular, symmetrical. GI: No signs and/or symptoms were reported involving the gastrointestinal system. : No signs and/or symptoms were reported regarding the genitourinary system. EENT: No signs and/or symptoms were reported regarding the EENT system. Derm: Skin is pink, warm \T\ dry. normal. Musculoskeletal: Patient has walking boot to right leg. States that she recently had surgery to that leg and since then she has had severe pain with no pain relief from taking medications. Pulse in right foot palpable and strong. 21:45 Reassessment: Patient appears in no apparent distress at this time. No changes from aj1 previously documented assessment. Patient and/or family updated on plan of care and expected duration. Pain level reassessed. Patient is alert, oriented x 3, equal unlabored respirations, skin warm/dry/pink. 22:33 Reassessment: Pt reports generalized pain. Provider notified. No new orders received. ed1 08/14 00:00 Reassessment: Seizure activity noted, provider notified, medication order obtained, ea medication administered. 00:18 Reassessment: Provider at bedside pt continues to have seizure activity, medication ea orders obtained, medication administered. 00:30 Reassessment: Pt continues seizure activity, provider at bedside med order obtained ea medication administered. Pt tolerated well. 00:35 Reassessment: Pt awake , seizure activity stopped. Pt groggy and oriented to self. ea Respirations even and unlabored, chest expansions even and symmetrical. 01:29 Reassessment: Pt groggy, oriented to self and place. Respirations even and unlabored. ea Chest expansions even and symmetrical. No s/s of pain or discomfort at this time. 02:45 Reassessment: pt groaning and started seizing. ERP notified, verbal orders given for ak1 2mg Ativan and another 2mg Ativan to repeat if continues to seize. pt resp even unlabored. pt responded to 2mg Ativan, seizure resolved. pt answers to her name, pt confused. will continue to monitor. 03:26 Reassessment: Pt resting with eyes closed, respirations even and unlabored, chest ea expansion even and symmetrical. No s/s of pain or discomfort noted at this time. 05:49 Reassessment: Pt resting with eyes closed, respirations even and unlabored, chest ea expansions even and symmetrical. 06:37 Reassessment: Pt groggy, respirations even and unlabored. Chest expansions even and ea symmetrical. No s/s of pain or discomfort noted at this time. 07:00 General: Appears in no apparent distress. comfortable, Behavior is calm, cooperative. rb1 Neuro: Level of Consciousness is awake, obeys commands, confused, pt. thinks it is 2013 and that she is in [facility].. Oriented to person, situation. Cardiovascular: Capillary refill < 3 seconds is brisk in bilateral fingers. Respiratory: Airway is patent Respiratory effort is even, unlabored, Respiratory pattern is regular, symmetrical. 07:38 Reassessment: Called report to MITCHELL Ramos. Information from the [facility] was given. All rb1 questions asked and answered. Psych: 08/13 20:52 Subjective: Patient's mood is sad, Delusions are denied, Hallucinations are denied aj1 Having thoughts of suicide. Objective: Patient is cooperative, Speech is normal, Affect is appropriate. Interventions: Removed personal items and placed in bag. Patient placed in hospital gown. Searched person for dangerous items. Suicide Risk Assessment: Sad Person Scale: Sex of patient: Female: Score 0 points. Age of patient: Score 0 point if patient falls outside of specified age parameters. Depression: Score 1 point if signs of depression are present. Previous Attempt: Score 1 point if patient has previously attempted suicide. Substance Abuse: Score 0 point if patient does not abuse alcohol or drugs. Rational Thinking: Score 0 point if patient has rational thinking. Social Support: Score 0 if social support is present/available. Organized Plan: Score 0 if patient did not have an organized plan in place. Relationship: Score 0 point if patient has a spouse or domestic partner. Chronic Sickness: Score 1 point if patient has illness, chronic, debilitating, or severe. TOTAL POINTS: If total points are 3-4, proposed clinical action is close follow-up/consider hospitalization. Safety Checks: Personal items have been removed. Door is open. No visitors are present at this time. Pt denies substance abuse. Vital Signs: 20:49 BP 113 / 84; Pulse 113; Resp 18; Temp 98.9(O); Pulse Ox 99% on R/A; Weight 72.57 kg aj1 (R); Height 5 ft. 5 in. (165.10 cm) (R); Pain 10/10; 05 00:14 BP 114 / 75; Pulse 108; Resp 20; Pulse Ox 99% on 2 lpm NC; ea 00:23 BP 121 / 96; Pulse 118; Resp 20 S; Pulse Ox 100% on R/A; ea 01:15 BP 108 / 61; Pulse 102; Resp 18; Pulse Ox 100% on R/A; ea 04:15 BP 94 / 60; Pulse 83; Resp 16; Pulse Ox 97% on R/A; ea 05:10 BP 94 / 61; Pulse 82; Resp 16; Pulse Ox 96% on R/A; oe 05:48 BP 107 / 65; Pulse 82; Resp 18 S; Temp 98(A); Pulse Ox 99% on R/A; ea 06:30 BP 106 / 70; Pulse 90; Resp 18; Pulse Ox 98% on R/A; ea 07:10 BP 114 / 83; Pulse 80; Resp 17; Pulse Ox 99% ; rb1 08/13 20:49 Body Mass Index 26.63 (72.57 kg, 165.10 cm) aj1 04:15 Provider notified of BP, order obtained, IV fluids administered, pt tolerating well. ea ED Course: 08/13 20:28 Patient arrived in ED. am2 20:32 Yariel Maravilla PA is PHCP. jr8 20:32 Kaushik Crain MD is Attending Physician. jr8 20:44 Mk, Lisa, RN is Primary Nurse. aj1 20:46 Triage completed. aj1 20:49 Arm band placed on. aj1 20:54 Patient has correct armband on for positive identification. Bed in low position. Side aj1 rails up X 1. 20:54 No provider procedures requiring assistance completed. aj1 21:00 Safety Checks: Personal items have been removed The door is open or patient has been aj1 placed in a hallway bed/chair. There are no family/friend visitors at this time. 21:00 Safety checks: Items removed: yes. Door open/sign placed on door: yes. Family/friend oe present: no. 21:00 Missed attempt(s): 20 gauge in left antecubital area. Bleeding controlled, band aid dh3 applied, catheter tip intact. 21:02 Missed attempt(s): 24 gauge in left forearm. Bleeding controlled, band aid applied, dh3 catheter tip intact. 21:06 EKG done, by ED staff, reviewed by Yariel GARCIA. 3 21:15 Safety Checks: Personal items have been removed The door is open or patient has been aj1 placed in a hallway bed/chair. There are no family/friend visitors at this time. 21:15 Safety checks: Items removed: yes. Door open/sign placed on door: yes. Family/friend oe present: no. 21:30 Safety Checks: Personal items have been removed The door is open or patient has been aj1 placed in a hallway bed/chair. There are no family/friend visitors at this time. 21:30 Safety checks: Items removed: yes. Door open/sign placed on door: yes. Family/friend oe present: no. 21:45 Safety Checks: Personal items have been removed The door is open or patient has been aj1 placed in a hallway bed/chair. There are no family/friend visitors at this time. 21:45 Safety checks: Items removed: yes. Door open/sign placed on door: yes. Family/friend oe present: no. 22:00 Safety Checks: Personal items have been removed The door is open or patient has been ed1 placed in a hallway bed/chair. There are no family/friend visitors at this time. 22:00 Safety checks: Items removed: yes. Door open/sign placed on door: yes. Family/friend oe present: no. 22:15 Safety Checks: Personal items have been removed The door is open or patient has been ed1 placed in a hallway bed/chair. There are no family/friend visitors at this time. 22:15 Safety checks: Items removed: yes. Door open/sign placed on door: yes. Family/friend oe present: no. 22:25 Report given to Juvenal Sebastian RN. aj1 22:30 Safety Checks: Personal items have been removed The door is open or patient has been ed1 placed in a hallway bed/chair. There are no family/friend visitors at this time. 22:30 Safety checks: Items removed: yes. Door open/sign placed on door: yes. Family/friend oe present: no. 22:45 Safety Checks: Personal items have been removed The door is open or patient has been ed1 placed in a hallway bed/chair. There are no family/friend visitors at this time. 22:45 Safety checks: Items removed: yes. Door open/sign placed on door: yes. Family/friend oe present: no. 23:00 Safety Checks: Personal items have been removed The door is open or patient has been ed1 placed in a hallway bed/chair. There are no family/friend visitors at this time. 23:00 Safety checks: Items removed: yes. Door open/sign placed on door: yes. Family/friend oe present: no. 23:15 Safety Checks: Personal items have been removed The door is open or patient has been ed1 placed in a hallway bed/chair. There are no family/friend visitors at this time. 23:15 Safety checks: Items removed: yes. Door open/sign placed on door: yes. Family/friend oe present: no. 23:25 Urine collected: clean catch specimen, clear. dh3 23:30 Safety Checks: Personal items have been removed The door is open or patient has been ed1 placed in a hallway bed/chair. There are no family/friend visitors at this time. 23:30 Safety checks: Items removed: yes. Door open/sign placed on door: yes. Family/friend oe present: no. 23:45 Safety Checks: Personal items have been removed The door is open or patient has been ed1 placed in a hallway bed/chair. There are no family/friend visitors at this time. 23:45 Safety checks: Items removed: yes. Door open/sign placed on door: yes. Family/friend oe present: no. 08/14 00:00 Safety checks: Items removed: yes. Door open/sign placed on door: yes. Family/friend oe present: no. 00:15 Safety checks: Items removed: yes. Door open/sign placed on door: yes. Family/friend oe present: no. 00:30 Safety checks: Items removed: yes. Door open/sign placed on door: yes. Family/friend oe present: no. 00:45 Safety checks: Items removed: yes. Door open/sign placed on door: yes. Family/friend oe present: no. 01:00 Safety checks: Items removed: yes. Door open/sign placed on door: yes. Family/friend oe present: no. 01:15 Safety checks: Items removed: yes. Door open/sign placed on door: no. Family/friend oe present: no. 01:30 Safety checks: Items removed: yes. Door open/sign placed on door: yes. Family/friend oe present: no. 01:45 Safety checks: Items removed: yes. Door open/sign placed on door: yes. Family/friend oe present: no. 01:53 Assisted with bedpan. ak1 02:00 Safety checks: Items removed: yes. Door open/sign placed on door: yes. Family/friend oe present: no. 02:15 Safety checks: Items removed: yes. Door open/sign placed on door: yes. Family/friend oe present: no. 02:30 Safety checks: Items removed: yes. Door open/sign placed on door: yes. Family/friend oe present: no. 02:45 Safety checks: Items removed: yes. Door open/sign placed on door: yes. Family/friend oe present: no. 02:51 Abby Clark MD is Hospitalizing Provider. jr8 03:00 Safety checks: Items removed: yes. Door open/sign placed on door: yes. Family/friend oe present: no. 03:15 Safety checks: Items removed: yes. Door open/sign placed on door: yes. Family/friend oe present: no. 03:30 Safety checks: Items removed: yes. Door open/sign placed on door: yes. Family/friend oe present: no. 03:45 Safety checks: Items removed: yes. Door open/sign placed on door: yes. Family/friend oe present: no. 04:00 Safety checks: Items removed: yes. Door open/sign placed on door: yes. Family/friend oe present: no. 04:15 Safety checks: Items removed: yes. Door open/sign placed on door: yes. Family/friend oe present: no. 04:18 Patient admitted, IV remains in place. ea 04:30 Safety checks: Items removed: yes. Door open/sign placed on door: yes. Family/friend oe present: no. 04:45 Safety checks: Items removed: yes. Door open/sign placed on door: yes. Family/friend oe present: no. 05:00 Safety checks: Items removed: yes. Door open/sign placed on door: yes. Family/friend oe present: no. 05:15 Safety checks: Items removed: yes. Door open/sign placed on door: yes. Family/friend oe present: no. 05:30 Safety checks: Items removed: yes. Door open/sign placed on door: yes. Family/friend oe present: no. 05:45 Safety checks: Items removed: yes. Door open/sign placed on door: yes. Family/friend oe present: no. 06:00 Safety checks: Items removed: yes. Door open/sign placed on door: yes. Family/friend oe present: no. 06:15 Safety checks: Items removed: yes. Door open/sign placed on door: yes. Family/friend oe present: no. 06:30 Safety checks: Items removed: yes. Door open/sign placed on door: yes. Family/friend oe present: no. 06:45 Safety checks: Items removed: yes. Door open/sign placed on door: yes. Family/friend oe present: no. 07:00 Safety checks: Items removed: yes. Door open/sign placed on door: yes. Family/friend oe present: no. 07:08 Report given to Abbie MEDRANO. ea 07:50 Patient admitted, IV remains in place. rb1 Administered Medications: 08/13 23:32 Drug: TORadol 30 mg {Note: left EJ.} Route: IVP; Site: Other; ea 08/14 03:38 Follow up: Response: No adverse reaction ea 00:00 Drug: Ativan 2 mg {Note: left EJ.} Route: IVP; Site: Other; ea 03:39 Follow up: Response: No adverse reaction; Marked relief of symptoms ea 00:15 Drug: Versed 2 mg {Note: left EJ administered by provider.} Route: IVP; Site: Other; ea 03:39 Follow up: Response: No adverse reaction; Marked relief of symptoms ea 00:23 Drug: CEREbyx 1 grams {Note: Left EJ .} Route: IVPB; Site: Other; ea 01:00 Follow up: Response: No adverse reaction; IV Status: Completed infusion; IV Intake: ea 100ml 00:28 Drug: Ativan 4 mg {Note: left EJ.} Route: IVP; Site: Other; ea 00:38 Follow up: Response: No adverse reaction; Marked relief of symptoms ea 02:45 Drug: Ativan 2 mg Route: IVP; Site: Other; ak1 03:38 Follow up: Response: No adverse reaction; Marked relief of symptoms ea 04:14 Drug: NS 0.9% 500 ml {Note: left EJ.} Route: IV; Rate: bolus; Site: Other; ea 04:58 Follow up: Response: No adverse reaction; IV Status: Completed infusion; IV Intake: ea 500ml Intake: 01:00 IV: 100ml; Total: 100ml. ea 04:58 IV: 500ml; Total: 600ml. ea Outcome: 02:51 Decision to Hospitalize by Provider. jr8 03:10 Admitted to ER Hold. Please see [facility] for further documentation. ea 03:10 Condition: stable 03:10 Instructed on the need for admit. 07:50 Admitted to ICU accompanied by nurse, accompanied by tech, via stretcher, room 1, with rb1 chart, Report called to MITCHELL Ramos 07:50 Condition: stable 07:50 Instructed on the need for admit. 07:50 Patient left the ED. rb1 Signatures: Lisa Terrazas, RN RN aj1 Yue Sebastian, TELEPHONE MESSENGER TELEPHONE MESSENGER ed1 Yariel Maravilla PA PA jr8 Danii Elizalde RN RN ak1 Michelle Regan RN RN rb1 Trevin Childs Amanda am2 Herrera, Deanna 3 Naima Pickard RN RN ea Corrections: (The following items were deleted from the chart) 08/13 23:34 23:33 Safety checks: Items removed: yes. Door open/sign placed on door: yes. oe Family/friend present: no. oe 08/14 03:04 03:04 Safety checks: Items removed: yes. Door open/sign placed on door: yes. oe Family/friend present: no. oe 05:32 04:54 Safety checks: Items removed: yes. Door open/sign placed on door: yes. oe Family/friend present: no. oe 06:45 06:01 Safety checks: Items removed: yes. Door open/sign placed on door: yes. oe Family/friend present: no. oe 06:45 06:01 Safety checks: Items removed: yes. Door open/sign placed on door: yes. oe Family/friend present: no. oe 06:45 06:02 Safety checks: Items removed: yes. Door open/sign placed on door: yes. oe Family/friend present: no. oe 07:00 06:01 Safety checks: Items removed: yes. Door open/sign placed on door: yes. oe Family/friend present: no. oe 07:29 07:00 Neuro: Level of Consciousness is awake, alert, obeys commands, Oriented to rb1 person, place, time, situation, rb1 08:23 08:22 Patient left the ED. rb1 rb1
[2017-08-14] MEDS ORDERED: LORazepam 2 MG/ML VIAL IV PRN ×3 (03:06→12:52)
[2017-08-14] MEDS ORDERED: ACETAMINOPHEN 500 MG TAB PO PRN ×2 (03:06→09:03)
[2017-08-14] MEDS ORDERED: MORPHINE 2 MG/ML SYR IV PRN (03:06)
[2017-08-14] MEDS ORDERED: ONDANSETRON 4 MG/2 ML VIAL IV PRN (03:06)
[2017-08-14] MEDS ORDERED: NA CHLORIDE 0.9% 1,000 ML IV SCH (04:00)
[2017-08-14] MEDS ORDERED: NA CHLORIDE 0.9% 500 ML ONE (04:11)
[2017-08-14] MEDS ORDERED: NA CHLORIDE 0.9% 1,000 ML ONE (04:21)
[2017-08-14] MEDS ORDERED: Morphine 2 MG/2 ML SYR IV PRN (07:10)
--- NOTE | 2017-08-14 07:12 | P.HP ---
Certification for Inpatient Patient admitted to: Observation With expected LOS: <2 Midnights Patient will require the following post-hospital care: None Practitioner: I am a practitioner with admitting privileges, knowledge of patient current condition, hospital course, and medical plan of care. Services: Services provided to patient in accordance with Admission requirements found in Title 42 Section 412.3 of the Code of Federal Regulations Patient History Date of Service: 08/14/17 Reason for admission: Suicidal ideation History of Present Illness: Patient is a 42yo who was admitted to the hospital with suicidal ideation. Patient has been depressed, and she is feeling like she wants to hurt herself. She has attempted suicide in the past many times. Her mother brought her into the hospital for evaluation. While in the emergency room she had multiple episodes of seizures. She has received large doses of Ativan, and when I came and talked to her she was difficult to understand. At this time she is suicidal and having seizures so will admit her for observation. Will monitor her over the next 24-48 hr and have Neurology consultation. If her seizures have cleared up she should be medically stable for transfer to a psychiatric facility. Allergies oxycodone [From OxyContin] Allergy (Mild, Verified 07/22/17 23:12) hallucinations ciprofloxacin [From Cipro] Allergy (Unverified 07/26/17 22:02) Unknown Home Medications: Butalbital/Aspirin/Caffeine [Fiorinal 50-325-40 mg Capsule] 1 tab PO Q6H PRN Carbamazepine [Tegretol] 200 mg PO BEDTIME 07/23/17 Clonazepam [Klonopin*] 1 mg PO TIDP PRN 07/23/17 Gabapentin [Neurontin] 800 mg PO TID 07/23/17 Levetiracetam [Keppra*] 1,000 mg PO DAILY 07/23/17 Nortriptyline HCl [Pamelor] 150 mg PO BEDTIME 07/23/17 - Past Medical/Surgical History Diabetic: No -: Asthma -: Migraine disorder -: Pseudoseizures -: Bipolar disorder -: Schizoaffective disorder -: History of multiple suicide attempts -: History of drug overdoses -: Chronic pain disorder -: Tobacco abuse -: History of compartment syndrome requiring fasciotomy -: Nasal surgery -: Fasciotomy in to the upper and lower extremities. -: Skin graft to the left thigh Psychosocial/ Personal History: Patient currently lives with her boyfriend. Patient has 1 child. Her aunt reports that the patient is not able to ambulate appropriately due to her recent fasciotomies. - Family History Mother Medical History: Hypertension, Diabetes Notes: migraines, crohns - Social History Smoking Status: Current every day smoker Review of Systems 10-point ROS is otherwise unremarkable Physical Examination - Vital Signs Temperature: 98 F Blood Pressure: 103/74 Pulse: 87 Respirations: 16 Pulse Ox (%): 97 - Physical Exam General: Alert, In no apparent distress, Oriented x2, Confused HEENT: Atraumatic, PERRLA, Mucous membr. moist/pink, EOMI, Sclerae nonicteric Neck: Supple, 2+ carotid pulse no bruit, No LAD, Without JVD or thyroid abnormality Respiratory: Clear to auscultation bilaterally, Normal air movement Cardiovascular: Regular rate/rhythm, Normal S1 S2, No murmurs Gastrointestinal: Normal bowel sounds, Soft and benign, Non-distended, No tenderness Musculoskeletal: No clubbing, No swelling, No tenderness Integumentary: No rashes Neurological: Normal gait, Normal speech, Normal strength at 5/5 x4 extr, Normal tone, Sensation intact, Cranial nerves 3-12 intact, Normal affect Lymphatics: No axilla or inguinal lymphadenopathy - Studies Laboratory Data (last 24 hrs) 08/13/17 21:20: PT Cancelled, INR Cancelled 08/13/17 21:20: WBC 5.9, Hgb 10.6 L, Hct 31.7 L, Plt Count 292 08/13/17 21:20: Sodium 142, Potassium 3.3 L, BUN 8, Creatinine 1.26 H, Glucose 94, Total Bilirubin 0.4, AST 16, ALT 11, Alkaline Phosphatase 72 Assessment & Plan - Problems (Diagnosis) (1) Altered mental status Onset Date: 04/23/16 Current Visit: No Status: Acute Qualifiers: Altered mental status type: somnolence Qualified Code(s): R40.0 - Somnolence (2) Pseudoseizure Onset Date: 12/26/15 Current Visit: No Status: Acute (3) Suicidal ideation Onset Date: 12/13/15 Current Visit: No Status: Acute (4) Schizoaffective disorder Onset Date: 04/23/16 Current Visit: No Status: Chronic Qualifiers: Schizoaffective disorder type: other Qualified Code(s): F25.8 - Other schizoaffective disorders (5) Seizure Onset Date: 09/13/16 Current Visit: No Status: Resolved - Plan PLAN: 1. IV hydration 2. Resume her home medications for seizures and her antidepressants 3. Neurology evaluation 4. [facility] evaluation by [facility] 5. Possible transfer to inpatient facility if still having suicidal ideations 6. GI/DVT prophylaxis - Advance Directives Does patient have a Living Will: No Does patient have a Durable POA for Healthcare: No - Code Status/Comfort Care Code Status Assessed: Yes Code Status: Full Code Critical Care: No Time Spent Managing PTS Care (In Minutes): 50
[2017-08-14] MEDS ORDERED: clonazePAM 1 MG TAB PO PRN (07:13)
[2017-08-14] MEDS: levETIRAcetam 500 MG TAB PO SCH (08:13)
[2017-08-14] MEDS: GABAPENTIN 400 MG CAP PO SCH ×3 (08:13→20:24)
[2017-08-14] MEDS ORDERED: ALPRAZOLAM 0.5 MG TABLET PO PRN (10:29)
[2017-08-14] MEDS ORDERED: ACETAMIN/CAFFEINE/BUTALB TAB PO PRN (11:25)
[2017-08-14] MEDS ORDERED: CARBAMAZEPINE 200 MG TAB PO SCH (21:00)
[2017-08-15 05:20] VITALS: BMI 24.2
[2017-08-15] MEDS: levETIRAcetam 500 MG TAB PO SCH (08:09)
[2017-08-15] MEDS: GABAPENTIN 400 MG CAP PO SCH (08:09)
[2017-08-15 08:36] VITALS: O2SAT 98
[2017-08-15 09:12] VITALS: BP 102/65; TEMP 98.2
--- NOTE | 2017-08-15 10:33 | EKG ---
Test Date: 2017-08-13 Test Time: 21:16:02 Machine Preservative Filler: WONG MEASUREMENT RESULTS: Intervals: Rate: 92 PA: 146 QRSD: 76 QT: 364 QTc: 450 Gary: P: 57 PA: 146 QRS: 63 T: 53 INTERPRETIVE STATEMENTS: Normal sinus rhythm Normal ECG Compared to ECG 07/26/2017 16:33:48 Sinus tachycardia no longer present Electronically Signed On 08-15-17 10:27:45 CDT by Thompson Bynum
--- NOTE | 2017-08-15 14:18 | EEG ---
CHART: [id number] TEST ID#: [id number] DATE OF STUDY: 08/14/2017 THE EEG WAS RECORDED PORTABLE IN THE ICU ON A 17 CHANNEL MACHINE. ELECTRODES WERE APPLIED IN THE USUAL MANNER USING THE INTERNATIONAL 10-20 SYSTEM. THE WAKING BACKGROUND RHYTHM IN THIS RECORD CONSISTS OF FAIRLY WELL DEVELOPED AND FAIRLY WELL ORGANIZED WAVES OF 13-17 HZ., IN A WIDE DISTRIBUTION WHICH ATTENUATE NORMALLY WITH EYE OPENING. MODERATE VOLTAGE 3-4 HZ ACTIVITY IS EXPRESSED OCCASIONALLY IN THE FRONTAL AND CENTRAL REGIONS. THERE ARE NO FOCAL OR LATERALIZING FEATURES. NO EPILEPTIFORM ACTIVITY APPEARS. SLEEP DID NOT OCCUR. HYPERVENTILATION WAS NOT PERFORMED. PHOTIC STIMULATION PRODUCED FAIR DRIVING BILATERALLY. IMPRESSION: THIS IS A MILDLY ABNORMAL EEG DUE TO DIFFUSELY EXPRESSED FAST MIXED WITH SLOW ACTIVITY. THIS FINDING MAY BE SECINDARY TO A MEDICATION EFFECT. THERE IS NO FOCAL, LATERALIZING OR EPILEPTIFORM ACTIVITY RECORDED DURING THIS STUDY.
--- NOTE | 2017-08-15 14:59 | P.SSS ---
Patient History Date of Service: 08/15/17 Primary Care Provider: None Reason for admission: Suicidal ideation History of Present Illness: Patient is a 42yo who was admitted to the hospital with suicidal ideation. Patient has been depressed, and she is feeling like she wants to hurt herself. She has attempted suicide in the past many times. Her mother brought her into the hospital for evaluation. While in the emergency room she had multiple episodes of seizures. She has received large doses of Ativan, and when I came and talked to her she was difficult to understand. At this time she is suicidal and having seizures so will admit her for observation. Will monitor her over the next 24-48 hr and have Neurology consultation. If her seizures have cleared up she should be medically stable for transfer to a psychiatric facility. Allergies oxycodone [From OxyContin] Allergy (Mild, Verified 08/14/17 08:49) hallucinations ciprofloxacin [From Cipro] Allergy (Verified 08/14/17 08:49) Unknown Home Medications: Carbamazepine [Tegretol] 200 mg PO BEDTIME 07/23/17 Clonazepam [Klonopin*] 1 mg PO TIDP PRN 07/23/17 Gabapentin [Neurontin] 800 mg PO TID 07/23/17 Levetiracetam [Keppra*] 1,000 mg PO DAILY 07/23/17 Nortriptyline HCl [Pamelor] 150 mg PO BEDTIME 07/23/17 - Past Medical/Surgical History Has patient received pneumonia vaccine in the past: No Diabetic: No -: Asthma -: Migraine disorder -: Pseudoseizures -: Bipolar disorder -: Schizoaffective disorder -: History of multiple suicide attempts -: History of drug overdoses -: Chronic pain disorder -: Tobacco abuse -: History of compartment syndrome requiring fasciotomy -: Nasal surgery -: Fasciotomy in to the upper and lower extremities. -: Skin graft to the left thigh Psychosocial/ Personal History: Patient currently lives with her boyfriend. Patient has 1 child. Her aunt reports that the patient is not able to ambulate appropriately due to her recent fasciotomies. - Family History Mother -: Hypertension, Diabetes Notes: migraines, crohns - Social History Smoking Status: Current every day smoker Alcohol use: No CD- Drugs: No Caffeine use: Yes Review of Systems General: As per HPI Physical Examination - Vital Signs Temperature: 98.2 F Blood Pressure: 102/65 Pulse: 84 Respirations: 14 Pulse Ox (%): 99 - Physical Exam General: Alert, In no apparent distress HEENT: Atraumatic, PERRLA, Mucous membr. moist/pink, EOMI, Sclerae nonicteric Neck: Supple, 2+ carotid pulse no bruit, No LAD, Without JVD or thyroid abnormality Respiratory: Clear to auscultation bilaterally, Normal air movement Cardiovascular: Regular rate/rhythm, Normal S1 S2 Gastrointestinal: Normal bowel sounds, No tenderness Musculoskeletal: No tenderness Integumentary: No rashes Neurological: Normal gait, Normal speech, Normal strength at 5/5 x4 extr, Normal tone, Normal affect Lymphatics: No axilla or inguinal lymphadenopathy - Diagnosis (Problem(s)) (1) Pseudoseizure Onset Date: 12/26/15 Status: Chronic (2) Suicidal ideation Onset Date: 12/13/15 Status: Acute (3) Bipolar disorder Onset Date: 04/23/16 Status: Chronic Qualifiers: Active/Remission status: in remission of unspecified degree Qualified Code( s): F31.70 - Bipolar disorder, currently in remission, most recent episode unspecified (4) Depression Onset Date: 08/08/16 Status: Chronic Qualifiers: Depression Type: major depressive disorder Major depression recurrence: unspecified whether recurrent Major depression episode severity: unspecified (5) Schizoaffective disorder Onset Date: 04/23/16 Status: Chronic Qualifiers: Schizoaffective disorder type: other Qualified Code(s): F25.8 - Other schizoaffective disorders Treatment Summary: Overall during the hospital stay patient remained stable Patient was initially admitted to the hospital for procedures. Patient has a long history of seizures. Was restarted on Keppra and neurology was consulted. Per neurology recommendation patient was switched over to keppra p.o.. patient remained seizure free here in the hospital and thus was medically clear for transfer to psych facility. Patient was accepted at [facility] and thus was transferred over to a psych facility for further care. - Disposition Condition: GOOD Diet: Regular Activity: Ad eloisa
== END 2017-08-15 11:01 | DRG 101 ==
LOC: ER 20:26 → ERHOLD 08-14 02:56 → 3RD-ICU 08-14 07:47 → OBSVTOIN 08-14 15:02
PROVIDERS: ADMIT Hospitalist; ATTEND Hospitalist
DX: G40.89 Other seizures (principal); R45.851 Suicidal ideations; F31.9 Bipolar disorder, unspecified; F32.9 Major depressive disorder, single episode, unspecified; F25.9 Schizoaffective disorder, unspecified; F17.210 Nicotine dependence, cigarettes, uncomplicated; Z88.0 Allergy status to penicillin
CPT/HCPCS: 36415; 80048; 80076; 80307; 80320; 80329; 81003; 81025; 85025; 93005; 95819; 96361; 96365; 96375; 99285; J2250; J2270; J2405; J7030; Q2009

== ENCOUNTER 2017-09-23 15:06 | Emergency (ER) | payer OTHER ==
--- OUTSIDE RECORDS SUMMARY | 2017-09-23 15:08 | XMS REPORT ---
:1975 Author Organization eClinicalWorks Care Team Providers Name Role Phone Gonzalez Yamileth Provider Role Unavailable Allergies No Known Allergies Problems Problem Type Condition Code Onset Dates Condition Status Problem Migraine, unspecified, not G43.901 Active intractable, with status migrainosus Problem Right foot pain M79.671 Active Problem Swelling R60.9 Active Problem Right leg pain M79.604 Active Problem Seizures R56.9 Active Problem Asthma J45.909 Active Problem Depression with anxiety F41.8 Active Problem Right arm pain M79.601 Active Problem Memory loss R41.3 Active Problem Chronic pain syndrome G89.4 Active Problem Limb deformity M21.90 Active Problem Right foot drop M21.371 Active Problem Bipolar affective disorder, F31.9 Active remission status unspecified Medications No Known Medications Results No Known Results Summary Purpose eClinicalWorks Submission
--- OUTSIDE RECORDS SUMMARY | 2017-09-23 15:08 | XMS REPORT ---
:1975 Author Organization eClinical[employer] Care Team Providers Name Role Phone Yamileth Roth Provider Role Unavailable Allergies, Adverse Reactions, Alerts Substance Reaction Event Type OxyContin hallucinate Drug Allergy Problems Problem Type Condition Code Onset Dates [...] Active Problem Chronic pain syndrome G89.4 Active Assessment Bipolar affective disorder, F31.9 Active remission status unspecified Assessment Depression with anxiety F41.8 Active Assessment Seizures R56.9 Active Problem Limb deformity M21.90 Active Assessment Chronic pain syndrome G89.4 Active Problem Right foot drop M21.371 Active Assessment Migraine, unspecified, not G43.901 Active intractable, with status migrainosus Problem Bipolar affective disorder, F31.9 Active remission status unspecified Medications Medication Code Code Instructions Start End Status Dosage System Date Date Fioricet [facility] [place] 47709582735 50-300-40 MG Active 1 capsule Orally every 4 as needed hrs Ferrous Sulfate [facility] [place] 22664605160 325 (65 Fe) MG Active 1 tablet Orally Once a day Clonazepam [facility] [place] 09131714931 0.5 MG Orally Active 1 tablet Once a day at bedtime Cyclobenzaprine [facility] [place] 83153860038 5 MG Orally Active 1 tablet HCl Three times a as needed day Nortriptyline HCl [facility] [place] 66212837285 75 Orally Once Active 2 capsules a day at bedtime Gabapentin [facility] [place] 43499414492 600 MG Orally Active 1 tablet Once a day Mar[place]opa [facility] [place] 06274518033 10-325 MG Active 1 tablet Orally every 6 as needed hrs Keppra [facility] [place] 23163613171 500 MG Orally Active 1 tablet Once a day Tegretol [facility] [place] 85055024675 200 MG Orally Active 1 tablet Once a day Results No Known Results Summary Purpose eClinicalWorks Submission
[2017-09-23] MEDS ORDERED: IBUPROFEN 400 MG TAB ONE (15:30)
--- NOTE | 2017-09-23 15:54 | RAD REPORT ---
EXAM DESCRIPTION: RAD - Ankle Right 3 View - 09/23/2017 3:48 pm CLINICAL HISTORY: Right ankle pain status post fall FINDINGS: No acute fracture or dislocation is seen.
--- NOTE | 2017-09-23 15:55 | RAD REPORT ---
EXAM DESCRIPTION: RAD - Foot Right 3 View - 09/23/2017 3:48 pm CLINICAL HISTORY: Right foot pain status post injury FINDINGS: A screw affixes is a fracture involving the base of the fifth metatarsal. The fracture has not yet completely healed. No acute fracture or dislocation is seen. The bones are osteoporotic
[2017-09-23] MEDS ORDERED: KETOROLAC 30 MG/ML INJ ONE (16:16)
[2017-09-23] MEDS ORDERED: ACETAMINOPHEN 325 MG TABLET ONE (16:16)
--- NOTE | 2017-09-23 16:37 | ER ---
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 Pt. rk2 denies any other pain or injury. Transition of care: patient was not received from another setting of care. Onset of symptoms was September 23, 2017. Risk Assessment: Do you want to hurt yourself or someone else? Patient reports no desire to harm self or others. Initial Sepsis Screen: Does the patient meet any 2 criteria? No. Patient's initial sepsis screen is negative. Does the patient have a suspected source of infection? No. Patient's initial sepsis screen is negative. Care prior to arrival: None. 15:19 Method Of Arrival: Wheelchair rk2 15:19 Acuity: SELVIN 4 rk2 Triage Assessment: 15:23 General: Appears in no apparent distress. uncomfortable, well groomed, well developed, rk2 well nourished, Behavior is calm, cooperative. Pain: Complains of pain in right foot/ankle. Musculoskeletal: Reports pain in right foot/ankle. Injury Description: no obvious deformity noted... good color/cap refill and pedal pulse. 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 - Social history:: Smoking status: Patient uses tobacco products, uses vape. - Ebola Screening: : Patient negative for fever greater than or equal to 101.5 degrees Fahrenheit, and additional compatible Ebola Virus Disease symptoms. Screenin:22 Abuse screen: Denies threats or abuse. Nutritional screening: No deficits noted. rk2 Tuberculosis screening: No symptoms or risk factors identified. Fall Risk None identified. Assessment: 16:21 Reassessment: Patient appears in no apparent distress at this time. No changes from rk2 previously documented assessment. Patient and/or family updated on plan of care and expected duration. Pain level reassessed. Verbal order received from provider for Tylenol 650 mg and Toradol 60 mg IM. 16:45 Reassessment: Pedal pulse found by palpation and with doppler. rk2 Vital Signs: 15:21 BP 118 / 74; Pulse 107; Resp 17; Temp 99.1; Pulse Ox 99% on R/A; rk2 ED Course: 15:09 Patient arrived in ED. sb2 15:09 Yamileth Roth MD is Private Physician. sb2 15:15 Hermilo Cochran PA is PHCP. cp 15:15 Kaushik Crain MD is Attending Physician. cp 15:15 Quita Gallegos RN is Primary Nurse. rk2 15:20 Triage completed. rk2 15:22 Patient has correct armband on for positive identification. Bed in low position. Call rk2 light in reach. 15:38 XRAY Ankle RIGHT 3 view Sent. rk2 15:38 XRAY Foot RIGHT 3 View Sent. rk2 15:46 X-ray completed. Portable x-ray completed in exam room. Patient tolerated procedure kc2 well. 15:48 XRAY Foot RIGHT 3 View In Process Unspecified. EDMS 15:48 XRAY Ankle RIGHT 3 view In Process Unspecified. EDMS 16:36 Yamileth Roth MD is Referral Physician. cp 16:45 Arm band placed on. Post OP shoe and delgado bandage placed. rk2 16:55 No provider procedures requiring assistance completed. Patient did not have IV access rk2 during this emergency room visit. Administered Medications: 15:38 Drug: Ibuprofen 800 mg Route: PO; rk2 16:21 Follow up: Response: No adverse reaction rk2 16:19 Drug: TORadol 60 mg Route: IM; Site: left deltoid; rk2 16:55 Follow up: Response: No adverse reaction rk2 16:19 Drug: Tylenol 650 mg Route: PO; rk2 16:55 Follow up: Response: No adverse reaction rk2 Outcome: 16:36 Discharge ordered by MD. cp 16:55 Discharged to home via wheelchair. rk2 16:55 Condition: good 16:55 Discharge instructions given to patient, Prescriptions given X 1. 16:57 Patient left the ED. rk2 Signatures: Dispatcher [employer] EDMS Hermilo Cochran PA PA Natalie Henry kc2 Quita Gallegos RN RN rk2 Nicole Odonnell sb2
--- NOTE | 2017-09-23 16:37 | EDPHYS ---
Physician Documentation [facility] Name: Annmarie Garcia Age: 42 yrs Sex: Female : 1975 Arrival Date: 09/23/2017 Time: 15:09 Bed 28 Private MD: Yamileth Roth ED Physician Kaushik Crain HPI: 09/23 15:25 This 42 yrs old Female presents to ER via Wheelchair with complaints of Foot cp Injury. 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 - Social history:: Smoking status: Patient uses tobacco products, uses vape. - Ebola Screening: : Patient negative for fever greater than or equal to 101.5 degrees Fahrenheit, and additional compatible Ebola Virus Disease symptoms. ROS: 15:30 Constitutional: Negative for body aches, chills, fever, poor PO intake. cp 15:30 Eyes: Negative for injury, pain, redness, and discharge. cp 15:30 Cardiovascular: Negative for chest pain, palpitations. cp 15:30 Respiratory: Negative for cough, shortness of breath, wheezing. 15:30 MS/extremity: Positive for injury or acute deformity, decreased range of motion, ecchymosis, pain, swelling, tenderness. 15:30 Skin: Negative for cellulitis, rash. 15:30 All other systems are negative. Exam: 15:38 Constitutional: The patient appears in no acute distress, alert, awake, non-toxic, well cp developed, well nourished, uncomfortable. 15:38 Head/Face: Normocephalic, atraumatic. cp 15:38 Eyes: Periorbital structures: appear normal, Conjunctiva: normal, no exudate, no cp injection, Lids and lashes: appear normal, bilaterally. 15:38 ENT: External ear(s): are unremarkable, Nose: is normal, Mouth: is normal, Posterior pharynx: is normal, airway is patent. 15:38 Chest/axilla: Inspection: normal. 15:38 Cardiovascular: Rate: tachycardic, Pulses: Pulses are 1+ in right dorsalis pedis artery. Edema: is not appreciated. 15:38 Respiratory: the patient does not display signs of respiratory distress, Respirations: cp normal, no use of accessory muscles, no retractions, no splinting, no tachypnea, labored breathing, is not present. 15:38 Abdomen/GI: Exam negative for discomfort, distension, guarding, Inspection: abdomen appears normal. 15:38 Back: pain, is absent, ROM is normal. 15:38 Musculoskeletal/extremity: Extremities: grossly normal except: noted in the dorsum of right foot: tenderness, minimal swelling, There is no evidence of noted well healed surgical scars, acute deformity, ROM: limited active range of motion due to pain, in the right foot, Perfusion: the extremity is mottled, Sensation intact. 15:38 Skin: cellulitis, is not appreciated, no rash present. Vital Signs: 15:21 BP 118 / 74; Pulse 107; Resp 17; Temp 99.1; Pulse Ox 99% on R/A; rk2 MDM: 15:15 Patient medically screened. cp 16:00 Differential diagnosis: dislocation, open fracture, closed fracture, contusion. cp 16:33 Data reviewed: vital signs, nurses notes, radiologic studies, plain films, and as a cp result, I will discharge patient. 16:33 Counseling: I had a detailed discussion with the patient and/or guardian regarding: the cp historical points, exam findings, and any diagnostic results supporting the discharge/admit diagnosis, radiology results, to return to the emergency department if symptoms worsen or persist or if there are any questions or concerns that arise at home. 09/23 15:20 Order name: XRAY Foot RIGHT 3 View; Complete Time: 16:28 cp 09/23 16:28 Interpretation: Report reviewed. cp 09/23 15:20 Order name: XRAY Ankle RIGHT 3 view; Complete Time: 16:28 cp 09/23 16:29 Interpretation: Report reviewed. cp Administered Medications: 15:38 Drug: Ibuprofen 800 mg Route: PO; rk2 16:21 Follow up: Response: No adverse reaction rk2 16:19 Drug: TORadol 60 mg Route: IM; Site: left deltoid; rk2 16:55 Follow up: Response: No adverse reaction rk2 16:19 Drug: Tylenol 650 mg Route: PO; rk2 16:55 Follow up: Response: No adverse reaction rk2 Disposition: 18:45 Co-signature as Attending Physician, Kaushik Crain MD. rn Disposition: 09/23/17 16:36 Discharged to Home. Impression: Pain in right foot - s/p fall. - Condition is Stable. - Discharge Instructions: Elastic Bandage and RICE, Foot Sprain. - Prescriptions for Naprosyn 500 mg Oral Tablet - take 1 tablet by ORAL route 2 times per day take with food; 20 tablet. - Medication Reconciliation Form, Thank You Letter, Antibiotic Education, Prescription Opioid Use form. - Follow up: Yamileth Roth MD; When: 1 - 2 days; Reason: Recheck today's complaints. - Problem is new. - Symptoms have improved. Signatures: Dispatcher [employer] EDMS Kaushik Crain MD MD rn Hermilo Cochran PA PA Quita Reina RN RN rk2 Corrections: (The following items were deleted from the chart) 16:57 16:36 09/23/2017 16:36 Discharged to Home. Impression: Pain in right foot - s/p fall. rk2 Condition is Stable. Forms are Medication Reconciliation Form, Thank You Letter, Antibiotic Education, Prescription Opioid Use. Follow up: Yamileth Roth; When: 1 - 2 days; Reason: Recheck today's complaints. Problem is new. Symptoms have improved. cp
[2017-09-23 17:39] VITALS: BP 118/74; TEMP 99.1; O2SAT 99
== END 2017-09-23 16:57 | disposition home or self-care (01) ==
LOC: ER 15:06
DX: M79.671 Pain in right foot (principal); Z88.6 Allergy status to analgesic agent; Z88.1 Allergy status to other antibiotic agents
CPT/HCPCS: 96372; 99283

== ENCOUNTER 2017-09-23 21:02 | Emergency (ER) | payer SELFPAY ==
--- OUTSIDE RECORDS SUMMARY | 2017-09-23 21:04 | XMS REPORT ---
[...] End Status Dosage System Date Date Fioricet [facility] [place] 35729909185 50-300-40 MG Active 1 capsule Orally every 4 as needed hrs Ferrous Sulfate [facility] [place] 73322840451 325 (65 Fe) MG Active 1 tablet Orally Once a day Clonazepam [facility] [place] 85892057550 0.5 MG Orally Active 1 tablet Once a day at bedtime Cyclobenzaprine [facility] [place] 41744977850 5 MG Orally Active 1 tablet HCl Three times a as needed day Nortriptyline HCl [facility] [place] 85731416802 75 Orally Once Active 2 capsules a day at bedtime Gabapentin [facility] [place] 09278005640 600 MG Orally Active 1 tablet Once a day Kemp [facility] [place] 70728280085 10-325 MG Active 1 tablet Orally every 6 as needed hrs Keppra [facility] [place] 51175028018 500 MG Orally Active 1 tablet Once a day Tegretol [facility] [place] 57596847474 200 MG Orally Active 1 tablet Once a day Results No Known Results Summary Purpose eClinicalWorks Submission
--- NOTE | 2017-09-23 21:25 | ER ---
Nurse's Notes [facility] Name: Annmarie Garcia Age: 42 yrs Sex: Female : 1975 Arrival Date: 09/23/2017 Time: 21:05 Bed Waiting Private MD: Yamileth Roth Diagnosis: ED Course: 09/23 21:05 Patient arrived in ED. am2 21:05 Yamileth Roth MD is Private Physician. am2 21:23 Patient's name was called from ER lobby. No response. Unable to locate patient. Will bb disposition as left without being seen by a provider. Administered Medications: No medications were administered Outcome: 21:24 Patient left the ED. bb Signatures: Pao Smith RN RN bb Peggy Helton am2
== END 2017-09-23 21:24 | disposition left against medical advice (07) ==
LOC: ER 21:02
DX: Z53.21 Procedure and treatment not carried out due to patient leaving prior to being seen by health care provider (principal)

== ENCOUNTER 2017-10-19 03:08 | Emergency (ER) | payer OTHER ==
--- OUTSIDE RECORDS SUMMARY | 2017-10-19 03:11 | XMS REPORT ---
:1975 Author Organization eClinicalWorks Care Team Providers Name Role Phone Yamileth Roth Provider Role Unavailable Allergies No Known Allergies [...] Active remission status unspecified Medications Medication Code System Code Instructions Start Date End Date Status Dosage Lexapro [facility] 16852059089 20 MG Orally Once September 23, Active 1 tablet a day 2018 Results No Known Results Summary Purpose eClinicalWorks Submission
--- OUTSIDE RECORDS SUMMARY | 2017-10-19 03:11 | XMS REPORT ---
[...] End Status Dosage System Date Date Fioricet [facility] 31919454344 50-300-40 MG Active 1 capsule Orally every 4 as needed hrs Ferrous Sulfate [facility] 62628322397 325 (65 Fe) MG Active 1 tablet Orally Once a day Clonazepam [facility] 29601571831 0.5 MG Orally Active 1 tablet Once a day at bedtime Cyclobenzaprine [facility] 38200383809 5 MG Orally Active 1 tablet HCl Three times a as needed day Nortriptyline HCl [facility] 34287932233 75 Orally Once Active 2 capsules a day at bedtime Gabapentin [facility] 83298284194 600 MG Orally Active 1 tablet Once a day [place] [facility] 47369193608 10-325 MG Active 1 tablet Orally every 6 as needed hrs Keppra [facility] 58441886396 500 MG Orally Active 1 tablet Once a day Tegretol [facility] 89184165006 200 MG Orally Active 1 tablet Once a day Results No Known Results Summary Purpose eClinicalWorks Submission
[2017-10-19] MEDS ORDERED: LORazepam 2 MG/ML VIAL ONE (03:27)
[2017-10-19 03:44] LABS: Absolute Lymphocytes (CBC) 2.2 K/uL (0.7-4.9); Absolute Monocytes 0.4 K/uL (0.1-1.3); Absolute Neutrophil 4.4 K/uL (1.8-8.0); Basophils % 0.8 % (0-1.3); Eosinophils % 3.6 % (0-4.4); Hematocrit 35.8 % (36.0-45.0); Lymphocytes % 29.9 % (15.3-44.8); MCH 30.3 pg (27.0-35.0); MCV 90.5 fL (80-100); MPV 8.1 fL (7.6-11.3); Monocytes % 5.4 % (3.3-12.3); RBC Red Blood Cell Count 3.96 M/uL (3.86-4.86)
[2017-10-19] MEDS ORDERED: NA CHLORIDE 0.9% 1,000 ML ONE (03:54)
[2017-10-19] MEDS ORDERED: LEVETIRACETAM 500 MG/5 ML VIAL IV ONE (04:02)
[2017-10-19] MEDS ORDERED: NA CHLORIDE 0.9% 100 ML IV ONE (04:06)
[2017-10-19 04:08] LABS: Potassium 3.8 mmol/L (3.5-5.1)
--- NOTE | 2017-10-19 05:53 | ER ---
Nurse's Notes [facility] Name: Annmarie Garcia Age: 42 yrs Sex: Female : 1975 Arrival Date: 10/19/2017 Time: 03:14 Bed 5 Private MD: Diagnosis: Epilepsy and recurrent seizures;Dehydration Presentation: 10/19 03:35 Presenting complaint: EMS states: Called for patient having seizure; Hx of seizures lp1 noted; Patient observed to have tense extremities, normal respirations, vitals, per EMS; responding to questions during seizure-like episode, no post ictal state noted. Transition of care: patient was not received from another setting of care. Onset of symptoms was October 19, 2017 at 02:30. Risk Assessment: Do you want to hurt yourself or someone else? Patient reports no desire to harm self or others. Initial Sepsis Screen: Does the patient meet any 2 criteria? No. Patient's initial sepsis screen is negative. Does the patient have a suspected source of infection? No. Patient's initial sepsis screen is negative. Care prior to arrival: IV initiated. 24g to left ankle Glucose check: 120. 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/2017 lp1 Historical: - Allergies: 03:42 Cipro; lp1 03:42 OxyContin; lp1 - Home Meds: 03:42 Fioricet Oral [Active]; Flexeril 10 mg Oral tab 1 tab 2 times per day [Active]; lp1 gabapentin 800 mg Oral tab 1 tab 3 times per day [Active]; Keppra 500 mg Oral tab 1 tab daily [Active]; [place] Oral [Active]; nortriptyline Oral [Active]; Tegretol 200 mg Oral tab 1 tab bedtime [Active]; - PMHx: 03:42 Anxiety; Asthma; decreased kidney fx; Hypertension; Hypothyroidism; Migraines; R arm lp1 compartment syndrome; R leg compartment syndrome; Seizures; suicidal ideation; - PSHx: 03:42 Surgery related to compartment syndrome; lp1 - Immunization history:: Adult Immunizations up to date. - Social history:: Smoking status: Patient/guardian denies using tobacco. - Ebola Screening: : No symptoms or risks identified at this time. - History obtained from: EMS. Screenin:40 Abuse screen: Denies threats or abuse. Denies injuries from another. Nutritional lp1 screening: No deficits noted. Tuberculosis screening: No symptoms or risk factors identified. Fall Risk Total Watson Fall Scale indicates High Risk Score (45 or more points). Fall prevention measures have been instituted. Side Rails Up X 2 Frequent Obs/Assessments Occuring As available patient and family educated on Fall Prevention Program and Strategies. Assessment: 03:25 Neuro: Seizure activity noted at this time. Lasting for 2 minutes, patient tensed up lp1 arms and legs, breathing noted to be normal, not responding to verbal stimuli; Provider at bedside; No post ictal states noted, patient crying after stating "I'm sorry". 03:30 General: Appears in no apparent distress. Behavior is crying. 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 Neuro: Level of Consciousness is awake, alert, obeys commands, Oriented to person, place, situation. Cardiovascular: Patient's skin is warm and dry. Rhythm is sinus tachycardia. Respiratory: Airway is patent Respiratory effort is even, unlabored, Respiratory pattern is regular, symmetrical, Breath sounds are clear bilaterally. GI: Abdomen is non-distended. : No signs and/or symptoms were reported regarding the genitourinary system. EENT: No signs and/or symptoms were reported regarding the EENT system. Derm: Skin is intact, Skin is clammy, Skin is normal. Musculoskeletal: Circulation, motion, and sensation intact. 04:10 Reassessment: Patient appears in no apparent distress at this time. Patient is alert, aa1 oriented x 3, equal unlabored respirations, skin warm/dry/pink. Pt reports her bed feels wet. Once covers removed it is found that IV from left foot has become dislodged. Will reattempt to initiate IV access. 05:15 Reassessment: Patient and/or family updated on plan of care and expected duration. Pain lp1 level reassessed. Patient resting, eyes closed, respirations unlabored; Monitor cords readjusted, patient aroused, states pain to left arm. 05:36 Reassessment: Assisted patient with bedpan. lp1 06:03 Reassessment: Attempted to call patient's significant other, Tarik Webb, for ride lp1 home, no answer; Voice mail left to return phone call. Neuro: Level of Consciousness is awake, alert, obeys commands, Oriented to person, place, situation. 06:40 Reassessment: Contacted patient's grandmother, Sol, states she will pick her up in lp1 about 45 minutes. 07:29 Reassessment: Patient appears in no apparent distress at this time. Patient and/or ph family updated on plan of care and expected duration. Pain level reassessed. Pt d/c home w/ family. Vital Signs: 03:37 BP 116 / 81; Pulse 118; Resp 18; Temp 98.7(O); Pulse Ox 97% on R/A; Weight 70.31 kg; lp1 Height 5 ft. 5 in. (165.10 cm); 04:41 BP 106 / 87; Pulse 108; Resp 19; Pulse Ox 98% on R/A; lp1 05:00 BP 112 / 78; Pulse 100; Resp 20; Pulse Ox 100% on R/A; lp1 05:30 BP 113 / 88; Pulse 91; Resp 19; Pulse Ox 100% on R/A; lp1 06:34 BP 102 / 72; Pulse 81; Resp 17; Pulse Ox 98% on R/A; lp1 03:37 Body Mass Index 25.79 (70.31 kg, 165.10 cm) lp1 [place] Coma Score: 03:42 Eye Response: spontaneous(4). Verbal Response: oriented(5). Motor Response: obeys lp1 commands(6). Total: 15. 03:42 Eye Response: spontaneous(4). Verbal Response: oriented(5). Motor Response: obeys lp1 commands(6). Total: 15. ED Course: 03:14 Patient arrived in ED. aa1 03:14 Kaushik Crain MD is Attending Physician. rn 03:34 Yoselin Dao RN is Primary Nurse. lp1 03:37 Triage completed. lp1 03:39 Arm band placed on left wrist. lp1 03:39 EKG done, by ED staff, reviewed by Kaushik Crain MD. Maintain EMS IV. Dressing intact. lp1 Good blood return noted. Site clean \\T\\ dry. Gauge \\T\\ site: 24g left foot. 03:40 Patient has correct armband on for positive identification. Placed in gown. Bed in low lp1 position. Side rails up X2. Seizure precautions initiated. monitor and storage bin tender on. Pulse ox on. NIBP on. 04:10 Missed attempt(s): 22 gauge in left foot. Bleeding controlled, band aid applied, aa1 catheter tip intact. 04:15 Missed attempt(s): 22 gauge in left foot. aa1 04:20 Inserted saline lock: 20 gauge in right EJ, using aseptic technique. aa1 05:35 No provider procedures requiring assistance completed. lp1 07:31 IV discontinued. ph Administered Medications: 03:34 Drug: Ativan 2 mg Route: IVP; Site: Other; lp1 04:33 Follow up: Response: Marked relief of symptoms lp1 03:54 Drug: NS 0.9% 1000 ml Route: IV; Rate: 1000 ml; Site: Other; lp1 05:33 Follow up: IV Status: Completed infusion; IV Intake: 1000ml lp1 03:54 CANCELLED (Physician Discretion): Ativan 1 mg IVP once lp1 04:34 Drug: Keppra 1000 mg Route: IV; Rate: calculated rate; Site: right jugular; lp1 05:00 Follow up: IV Status: Completed infusion lp1 07:32 Not Given (Other Intervention Used): Motrin 800 mg PO once ph Point of Care Testing: Blood Glucose: 03:39 Blood Glucose: 98 mg/dL; lp1 Ranges: Intake: 05:33 IV: 1000ml; Total: 1000ml. lp1 Outcome: 05:52 Discharge ordered by . rn 07:30 Discharged to home via wheelchair, with family. ph 07:30 Condition: good 07:30 Discharge instructions given to patient, Instructed on discharge instructions, follow up and referral plans. Demonstrated understanding of instructions, follow-up care. 07:32 Patient left the ED. ph Signatures: Mona Gonzalez RN RN aa1 Kaushik Crain MD MD rn Pena, Laura, RN RN lp1 Abbie Puga RN RN ph
--- NOTE | 2017-10-19 05:53 | EDPHYS ---
Physician Documentation [facility] Name: Annmarie Garcia Age: 42 yrs Sex: Female : 1975 Arrival Date: 10/19/2017 Time: 03:14 Bed 5 Private MD: ED Physician Kaushik Crain HPI: 10/19 03:19 This 42 yrs old Female presents to ER via Unassigned with complaints of rn Probable Seizure. 03:19 The patient presents with a history of multiple seizures, a total of 2. Character of rn seizure(s): Loss of consciousness: the patient did not lose consciousness, Motor activity: focal activity, Incontinence: none, Circulation: the patient did not experience evidence of pulse disturbance. Seizure onset: the onset is not known. Current symptoms: confusion. The patient has experienced similar episodes in the past. The patient has not recently seen a physician. No details, EMS states significant other called 911 for seizure, no meds given, had another episode upon arrival to hospital. Patient known to us, has hx of seizures and drug use. . 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 09/29/2017 lp1 Historical: - Allergies: 03:42 Cipro; lp1 03:42 OxyContin; lp1 - Home Meds: 03:42 Fioricet Oral [Active]; Flexeril 10 mg Oral tab 1 tab 2 times per day [Active]; lp1 gabapentin 800 mg Oral tab 1 tab 3 times per day [Active]; Keppra 500 mg Oral tab 1 tab daily [Active]; [place] Oral [Active]; nortriptyline Oral [Active]; Tegretol 200 mg Oral tab 1 tab bedtime [Active]; - PMHx: 03:42 Anxiety; Asthma; decreased kidney fx; Hypertension; Hypothyroidism; Migraines; R arm lp1 compartment syndrome; R leg compartment syndrome; Seizures; suicidal ideation; - PSHx: 03:42 Surgery related to compartment syndrome; lp1 - Immunization history:: Adult Immunizations up to date. - Social history:: Smoking status: Patient/guardian denies using tobacco. - Ebola Screening: : No symptoms or risks identified at this time. - History obtained from: EMS. ROS: 03:19 Unable to obtain ROS due to altered mental status. rn Exam: 03:19 Constitutional: This is a well developed, well nourished patient who is awake, rn post-ictal Head/Face: Normocephalic, atraumatic. Eyes: Pupils equal round and reactive to light, extra-ocular motions intact. Lids and lashes normal. Conjunctiva and sclera are non-icteric and not injected. Cornea within normal limits. Periorbital areas with no swelling, redness, or edema. ENT: dry MM Cardiovascular: tachycardic, regular, no murmur Respiratory: + mild tachypnea, no retractions, no wheezing Abdomen/GI: Soft, non-tender. No distension or tympany. No guarding or rebound. No evidence of tenderness throughout. Neuro: Awake, post-ictal, slowly improving speech and interaction, non-focal exam. Vital Signs: 03:37 BP 116 / 81; Pulse 118; Resp 18; Temp 98.7(O); Pulse Ox 97% on R/A; Weight 70.31 kg; lp1 Height 5 ft. 5 in. (165.10 cm); 04:41 BP 106 / 87; Pulse 108; Resp 19; Pulse Ox 98% on R/A; lp1 05:00 BP 112 / 78; Pulse 100; Resp 20; Pulse Ox 100% on R/A; lp1 05:30 BP 113 / 88; Pulse 91; Resp 19; Pulse Ox 100% on R/A; lp1 06:34 BP 102 / 72; Pulse 81; Resp 17; Pulse Ox 98% on R/A; lp1 03:37 Body Mass Index 25.79 (70.31 kg, 165.10 cm) lp1 [place] Coma Score: 03:42 Eye Response: spontaneous(4). Verbal Response: oriented(5). Motor Response: obeys lp1 commands(6). Total: 15. 03:42 Eye Response: spontaneous(4). Verbal Response: oriented(5). Motor Response: obeys lp1 commands(6). Total: 15. MDM: 03:14 Patient medically screened. rn 04:15 Differential diagnosis: seizure, dehydration. Data reviewed: vital signs, nurses notes. 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 No chest pain/abd pain. 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 Will hydrate, labs normal, anticipate DC home. She states has daily seizures. . 05:52 Counseling: I had a detailed discussion with the patient and/or guardian regarding: the rn historical points, exam findings, and any diagnostic results supporting the discharge/admit diagnosis, lab results, the need for outpatient follow up, to return to the emergency department if symptoms worsen or persist or if there are any questions or concerns that arise at home. Response to treatment: the patient's condition has returned to base line, the patient is now symptom free, patient is well hydrated. and as a result, I will discharge patient. 05:53 ED course: Pt back to baseline, no further seizures, hydrated, normalized vitals. . rn 10/19 03:17 Order name: CBC with Diff; Complete Time: 04:09 rn 10/19 03:17 Order name: Basic Metabolic Panel; Complete Time: 04:09 rn 10/19 04:42 Order name: Glucose, Ancillary Testing EDMS 10/19 05:43 Order name: Urine Dipstick--Ancillary (enter results) ms 10/19 05:43 Order name: Urine --Ancillary (enter results) ms 10/19 03:17 Order name: IV Start; Complete Time: 03:46 rn 10/19 03:17 Order name: Glucose Level; Complete Time: 03:46 rn 10/19 03:24 Order name: Urine Dipstick-Ancillary (obtain specimen); Complete Time: 05:40 rn 10/19 03:24 Order name: Urine Test (obtain specimen); Complete Time: 05:40 rn Administered Medications: 03:34 Drug: Ativan 2 mg Route: IVP; Site: Other; lp1 04:33 Follow up: Response: Marked relief of symptoms lp1 03:54 Drug: NS 0.9% 1000 ml Route: IV; Rate: 1000 ml; Site: Other; lp1 05:33 Follow up: IV Status: Completed infusion; IV Intake: 1000ml lp1 03:54 CANCELLED (Physician Discretion): Ativan 1 mg IVP once lp1 04:34 Drug: Keppra 1000 mg Route: IV; Rate: calculated rate; Site: right jugular; lp1 05:00 Follow up: IV Status: Completed infusion lp1 07:32 Not Given (Other Intervention Used): Motrin 800 mg PO once ph Point of Care Testing: Blood Glucose: 03:39 Blood Glucose: 98 mg/dL; lp1 Ranges: Critical Glucose Levels:Adult <50 mg/dl or >400 mg/dl <40 mg/dl or >180 mg/dl Disposition: 10/19/17 05:52 Discharged to Home. Impression: Epilepsy and recurrent seizures, Dehydration. - Condition is Stable. - Discharge Instructions: Seizure, Adult, Dehydration, Adult, [id number]. - Medication Reconciliation Form, Thank You Letter, Antibiotic Education, Prescription Opioid Use form. - Follow up: Private Physician; When: As needed; Reason: Recheck today's complaints, Re-evaluation by your physician. - Problem is an ongoing problem. - Symptoms have improved. Signatures: Dispatcher [employer] EDMS Kaushik Crain MD MD rn Pena, Laura, RN RN lp1 Abbie Puga RN RN ph Corrections: (The following items were deleted from the chart) 03:54 03:22 Ativan 1 mg IVP once ordered. rn lp1 07:32 05:52 10/19/2017 05:52 Discharged to Home. Impression: Epilepsy and recurrent seizures; ph Dehydration. Condition is Stable. Forms are Medication Reconciliation Form, Thank You Letter, Antibiotic Education, Prescription Opioid Use. Follow up: Private Physician; When: As needed; Reason: Recheck today's complaints, Re-evaluation by your physician. Problem is an ongoing problem. Symptoms have improved. rn
[2017-10-19 06:01] LABS: Urine Blood NEGATIVE (NEG); Urine Glucose NEGATIVE (NEG); Urine Protein NEGATIVE (NEG)
[2017-10-19 07:36] VITALS: TEMP 98.7
[2017-10-19 07:40] VITALS: BP 102/72; O2SAT 98
--- NOTE | 2017-10-19 09:28 | EKG ---
Test Date: 2017-10-19 Test Time: 03:27:30 Billing Adjudicator: AIDEE MEASUREMENT RESULTS: Intervals: Rate: 117 [place]: 154 QRSD: 82 QT: 324 QTc: 451 [place]: P: 63 [place]: 154 QRS: 76 T: 59 INTERPRETIVE STATEMENTS: Sinus tachycardia with occasional premature ventricular complexes Possible Left atrial enlargement Borderline ECG Compared to ECG 08/13/2017 21:16:02 Ventricular premature complex(es) now present Sinus rhythm no longer present Electronically Signed On 10-19-17 09:27:12 CDT by Thompson Bynum
== END 2017-10-19 07:32 | disposition home or self-care (01) ==
LOC: ER 03:08
DX: G40.909 Epilepsy, unspecified, not intractable, without status epilepticus (principal); E86.0 Dehydration; I10 Essential (primary) hypertension; E03.9 Hypothyroidism, unspecified; Z88.0 Allergy status to penicillin
CPT/HCPCS: 36415; 80048; 81003; 81025; 82962; 85025; 93005; 96361; 96365; 96375; 99284; J1953; J7030

== ENCOUNTER 2017-10-21 16:12 | Emergency (ER) | payer OTHER, SELFPAY ==
--- OUTSIDE RECORDS SUMMARY | 2017-10-21 16:13 | XMS REPORT ---
[...] End Status Dosage System Date Date Fioricet [facility] 68239839538 50-300-40 MG Active 1 capsule Orally every 4 as needed hrs Ferrous Sulfate [facility] 49499993566 325 (65 Fe) MG Active 1 tablet Orally Once a day Clonazepam [facility] 13459585691 0.5 MG Orally Active 1 tablet Once a day at bedtime Cyclobenzaprine [facility] 66751150694 5 MG Orally Active 1 tablet HCl Three times a as needed day Nortriptyline HCl [facility] 27955377031 75 Orally Once Active 2 capsules a day at bedtime Gabapentin [facility] 16150362480 600 MG Orally Active 1 tablet Once a day [place] [facility] 33765040651 10-325 MG Active 1 tablet Orally every 6 as needed hrs Keppra [facility] 29022948238 500 MG Orally Active 1 tablet Once a day Tegretol [facility] 55914289478 200 MG Orally Active 1 tablet Once a day Results No Known Results Summary Purpose eClinicalWorks Submission
--- OUTSIDE RECORDS SUMMARY | 2017-10-21 16:13 | XMS REPORT ---
[...] Start Date End Date Status Dosage Lexapro [facility] [id number] 20 MG Orally Once September 23, Active 1 tablet a day 2018 Results No Known Results Summary Purpose eClinicalWorks Submission
--- NOTE | 2017-10-21 17:53 | ER ---
Nurse's Notes [facility] Name: Annmarie Garcia Age: 42 yrs Sex: Female : 1975 Arrival Date: 10/21/2017 Time: 16:14 Bed 8 Private MD: Diagnosis: Epilepsy and recurrent seizures Presentation: 10/21 16:12 Presenting complaint: EMS states: Pt called 911 and reported she was short of breath jl7 and had a seizure earlier today. The door was locked upon arrival to the house and the pt crawled to the door to unlock is and stated "I'm having a seizure." Pt's body was very tense and she was making grunting sounds. 5 mg Versed administered intranasally at approximately 1553. Pt then relaxed, VSS. 16:12 Transition of care: patient was not received from another setting of care. Onset of jl7 symptoms was October 21, 2017. Risk Assessment: Do you want to hurt yourself or someone else? Patient reports no desire to harm self or others. Initial Sepsis Screen: Does the patient meet any 2 criteria? No. Patient's initial sepsis screen is negative. Does the patient have a suspected source of infection? No. Patient's initial sepsis screen is negative. Care prior to arrival: Medication(s) given: 5 mg Versed intranasally. 16:12 Method Of Arrival: EMS: [place] [id number] 16:12 Acuity: SELVIN 3 jl7 Triage Assessment: 16:23 General: Appears in no apparent distress. comfortable, Behavior is cooperative, drowsy. jl7 Pain: Denies pain. EENT: No deficits noted. Neuro: Level of Consciousness is obeys commands, stuporous, Oriented to person, place, time, situation. Cardiovascular: Patient's skin is warm and dry. Respiratory: Airway is patent Respiratory effort is even, unlabored, Respiratory pattern is regular, symmetrical. GI: No signs and/or symptoms were reported involving the gastrointestinal system. : No signs and/or symptoms were reported regarding the genitourinary system. Derm: Skin is pink, warm \\T\\ dry. Musculoskeletal: No signs and/or symptoms reported regarding the musculoskeletal system. 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 jl7 Historical: - Allergies: 16:23 Cipro; jl7 16:23 OxyContin; jl7 - Home Meds: 17:00 Fioricet Oral [Active]; Flexeril 10 mg Oral tab 1 tab 2 times per day [Active]; jl7 gabapentin 800 mg Oral tab 1 tab 3 times per day [Active]; Keppra 500 mg Oral tab 1 tab daily [Active]; [place] Oral [Active]; nortriptyline Oral [Active]; Tegretol 200 mg Oral tab 1 tab bedtime [Active]; - PMHx: 16:23 Anxiety; Asthma; decreased kidney fx; Hypertension; Hypothyroidism; Migraines; R arm jl7 compartment syndrome; R leg compartment syndrome; Seizures; suicidal ideation; - Immunization history:: Adult Immunizations unknown. - Social history:: Smoking status: unknown. - Ebola Screening: : No symptoms or risks identified at this time. Screenin:28 Abuse screen: Denies threats or abuse. Denies injuries from another. Nutritional jl7 screening: No deficits noted. Tuberculosis screening: No symptoms or risk factors identified. Fall Risk None identified. Assessment: 16:28 General: See triage assessment. jl7 17:02 Reassessment: Patient appears in no apparent distress at this time. ae1 17:40 Reassessment: Pt is drowsy but oriented X3 at this time. jl7 18:17 General: Appears in no apparent distress. comfortable, Behavior is calm, cooperative, aj appropriate for age. Pain: Denies pain. Neuro: Level of Consciousness is awake, alert, obeys commands, Oriented to person, place, time, situation, Appropriate for age. Respiratory: Airway is patent Respiratory effort is even, unlabored, Respiratory pattern is regular, symmetrical. Derm: Skin is intact, is healthy with good turgor, Skin is pink, warm \\T\\ dry. normal. Vital Signs: 16:23 BP 112 / 58; Pulse 89; Resp 20 S; Temp 98.3(O); Pulse Ox 99% on R/A; jl7 16:56 BP 99 / 61; Pulse 88; Resp 16; Pulse Ox 99% on R/A; ae1 17:39 BP 103 / 68; Pulse 88; Resp 16; Pulse Ox 100% ; jl7 18:17 BP 102 / 65; Pulse 88; Resp 19; Pulse Ox 100% on R/A; aj [place] Coma Score: 16:23 Eye Response: to voice(3). Verbal Response: oriented(5). Motor Response: obeys jl7 commands(6). Total: 14. ED Course: 16:14 Patient arrived in ED. jl7 16:14 Branden Yuen MD is Attending Physician. 16:21 Triage completed. jl7 16:23 Arm band placed on right wrist. jl7 16:28 Patient has correct armband on for positive identification. Bed in low position. Call jl7 light in reach. Side rails up X 1. Seizure precautions initiated. shelter monitor on. Pulse ox on. NIBP on. Warm blanket given. 16:56 Charu Eller, RN is Primary Nurse. jl7 17:41 Report given to [place]. jl7 18:17 No provider procedures requiring assistance completed. Patient did not have IV access aj during this emergency room visit. Administered Medications: No medications were administered Outcome: 17:52 Discharge ordered by . 18:17 Discharged to home via wheelchair. aj 18:17 Condition: good 18:17 Discharge instructions given to patient, Instructed on discharge instructions, follow up and referral plans. Demonstrated understanding of instructions, follow-up care. 18:19 Patient left the ED. aj Signatures: Peggy Solorzano, RN RN Abdiel Nguyen RN RN ae1 Charu Eller RN RN jl7 Starr, Gregory, MD MD
--- NOTE | 2017-10-21 17:53 | EDPHYS ---
Physician Documentation [facility] Name: Annmarie Garcia Age: 42 yrs Sex: Female : 1975 Arrival Date: 10/21/2017 Time: 16:14 Bed 8 Private MD: ED Physician Branden Yuen HPI: 10/21 17:15 This 42 yrs old Female presents to ER via EMS with complaints of Seizure. gs 17:15 The patient presents after having a single isolated seizure. Character of seizure(s): gs Motor activity: generalized. Seizure onset: just prior to arrival. Seizure Hx: Seizure medications: Keppra. Associated injury: The patient did not suffer any apparent associated injury. The patient has experienced similar episodes in the past, chronically. [employer]: 16:59 LMP 09/29/2017 jl7 Historical: - Allergies: 16:23 Cipro; jl7 16:23 OxyContin; jl7 - Home Meds: 17:00 Fioricet Oral [Active]; Flexeril 10 mg Oral tab 1 tab 2 times per day [Active]; jl7 gabapentin 800 mg Oral tab 1 tab 3 times per day [Active]; Keppra 500 mg Oral tab 1 tab daily [Active]; [place] Oral [Active]; nortriptyline Oral [Active]; Tegretol 200 mg Oral tab 1 tab bedtime [Active]; - PMHx: 16:23 Anxiety; Asthma; decreased kidney fx; Hypertension; Hypothyroidism; Migraines; R arm jl7 compartment syndrome; R leg compartment syndrome; Seizures; suicidal ideation; - Immunization history:: Adult Immunizations unknown. - Social history:: Smoking status: unknown. - Ebola Screening: : No symptoms or risks identified at this time. ROS: 17:15 All other systems are negative. gs Exam: 17:15 Head/Face: Normocephalic, atraumatic. Eyes: Pupils equal round and reactive to light, gs extra-ocular motions intact. Lids and lashes normal. Conjunctiva and sclera are non-icteric and not injected. Cornea within normal limits. Periorbital areas with no swelling, redness, or edema. ENT: Nares patent. No nasal discharge, no septal abnormalities noted. Tympanic membranes are normal and external auditory canals are clear. Oropharynx with no redness, swelling, or masses, exudates, or evidence of obstruction, uvula midline. Mucous membranes moist. Neck: Trachea midline, no thyromegaly or masses palpated, and no cervical lymphadenopathy. Supple, full range of motion without nuchal rigidity, or vertebral point tenderness. No Meningismus. Chest/axilla: Normal chest wall appearance and motion. Nontender with no deformity. No lesions are appreciated. Cardiovascular: Regular rate and rhythm with a normal S1 and S2. No gallops, murmurs, or rubs. Normal PMI, no JVD. No pulse deficits. Respiratory: Lungs have equal breath sounds bilaterally, clear to auscultation and percussion. No rales, rhonchi or wheezes noted. No increased work of breathing, no retractions or nasal flaring. Abdomen/GI: Soft, non-tender, with normal bowel sounds. No distension or tympany. No guarding or rebound. No evidence of tenderness throughout. Back: No spinal tenderness. No costovertebral tenderness. Full range of motion. Skin: Warm, dry with normal turgor. Normal color with no rashes, no lesions, and no evidence of cellulitis. MS/ Extremity: Pulses equal, no cyanosis. Neurovascular intact. Full, normal range of motion. 17:15 Constitutional: The patient appears in no acute distress. 17:15 Neuro: Orientation: to person, place, time, Cranial nerves: CN II- XII are normal as tested, Cerebellar function: no acute changes, Motor: moves all fours, strength is normal, Sensation: no acute changes, pin prick testing is normal, seizure activity, is not displayed by the patient, Abnormal movements: there are no abnormal movements. Vital Signs: 16:23 BP 112 / 58; Pulse 89; Resp 20 S; Temp 98.3(O); Pulse Ox 99% on R/A; jl7 16:56 BP 99 / 61; Pulse 88; Resp 16; Pulse Ox 99% on R/A; ae1 17:39 BP 103 / 68; Pulse 88; Resp 16; Pulse Ox 100% ; jl7 18:17 BP 102 / 65; Pulse 88; Resp 19; Pulse Ox 100% on R/A; aj [place] Coma Score: 16:23 Eye Response: to voice(3). Verbal Response: oriented(5). Motor Response: obeys jl7 commands(6). Total: 14. MDM: 16:32 Patient medically screened. gs 17:15 Differential diagnosis: seizure, pseudosz. Data reviewed: nurses notes, EMS record. Data reviewed: vital signs. 17:50 ED course: still a little sleepy from versed completely arousable and appropriate will gs discharge when ready. Administered Medications: No medications were administered Disposition: 10/21/17 17:52 Discharged to Home. Impression: Epilepsy and recurrent seizures. - Condition is Stable. - Discharge Instructions: Seizure, Adult. - Medication Reconciliation Form, Thank You Letter, Antibiotic Education, Prescription Opioid Use form. - Follow up: Private Physician; When: 1 - 2 days; Reason: Re-evaluation by your physician. Signatures: Peggy Solorzano RN RN Charu Hardy RN RN jl7 Branden Yuen MD MD Corrections: (The following items were deleted from the chart) 18:19 17:52 10/21/2017 17:52 Discharged to Home. Impression: Epilepsy and recurrent seizures. aj Condition is Stable. Forms are Medication Reconciliation Form, Thank You Letter, Antibiotic Education, Prescription Opioid Use. Follow up: Private Physician; When: 1 - 2 days; Reason: Re-evaluation by your physician.
[2017-10-21 18:23] VITALS: TEMP 98.3
[2017-10-21 18:26] VITALS: O2SAT 100
[2017-10-21 18:27] VITALS: BP 102/65
== END 2017-10-21 18:19 | disposition home or self-care (01) ==
LOC: ER 16:12
DX: G40.909 Epilepsy, unspecified, not intractable, without status epilepticus (principal); Z88.1 Allergy status to other antibiotic agents; Z88.5 Allergy status to narcotic agent; I10 Essential (primary) hypertension; E03.9 Hypothyroidism, unspecified; G43.909 Migraine, unspecified, not intractable, without status migrainosus
CPT/HCPCS: 99284